=== PATIENT | female | born 1940 | race Caucasian/White ===

== ENCOUNTER → 2023-07-06 10:13 | Outpatient (REF) | payer MEDICARE, OTHER, SELFPAY | LOC: HWRAD 10:13 | PROVIDERS: ATTENDING PHYSICIAN Physician Assistant | DX: N28.89 Other specified disorders of kidney and ureter (principal) | CPT/HCPCS: 76770 ==

== ENCOUNTER → 2023-08-08 09:37 | Outpatient (REF) | payer MEDICARE, OTHER, SELFPAY ==
[2023-08-08 12:02] LABS: % Basophils 0.6 % (0-2); % Eosinophils 1.2 % (0-6); % Immature Granulocytes 0.4 % (0-0.5); % Lymphocytes 19.5 % (20.5-51.1); % Monocytes 12.2 % (1.7-9.3); % Neutrophils 66.1 % (42.2-75.2); Absolute Basophils 0.1 10^3/uL (0-0.2); Absolute Eosinophils 0.1 10^3/uL (0-0.7); Absolute Lymphocytes 1.6 10^3/uL (1.2-3.4); Absolute Neutrophils 5.3 10^3/uL (1.4-6.5); Hematocrit 30.6 % (37.0-47.0); Hemoglobin 9.6 g/dL (12.0-16.0); Mean Corp Hgb Conc. 31.4 g/dL (33.0-37.0); Mean Corpuscular Hgb 29.3 pg (27.0-31.0); Mean Corpuscular Volume 93.3 fL (81.0-99.0); Mean Platelet Volume 10.8 fL (7.4-10.4); Nucleated Red Blood Cells % 0 %; Platelet Count 351 10^3/uL (130-400); Red Blood Cell Count 3.28 10^6/uL (4.20-5.40); Red Cell Dist. Width 14.6 % (11.5-14.5)
[2023-08-08 13:07] LABS: ALT (SGPT) 10 U/L (0-35); AST (SGOT) 15 U/L (14-36); Albumin 3.6 g/dl (3.5-5.0); Alkaline Phosphatase 106 U/L (38-126); Blood Urea Nitrogen 10 mg/dl (7-17); Calcium 8.9 mg/dl (8.4-10.2); Carbon Dioxide 29 mmol/L (22-30); Chloride 103 mmol/L (98-107); Glucose 102 mg/dl (70-99); HDL Cholesterol 53 mg/dl; LDL Cholesterol, Calculated 63 mg/dl; Potassium 4.2 mmol/L (3.5-5.1); Sodium 136 mmol/L (135-145); Total Bilirubin 0.4 mg/dl (0.2-1.3); Total Cholesterol 133 mg/dl (50-199); Total Protein 6.4 g/dl (6.3-8.2); Triglyceride 86 mg/dl (10-149); Very Low Density Lipoprotein 17 mg/dl (0-30); eGFR > 60.00
== END ==
LOC: HWLAB 09:37
PROVIDERS: ATTENDING PHYSICIAN Physician Assistant
DX: N28.1 Cyst of kidney, acquired (principal); J44.9 Chronic obstructive pulmonary disease, unspecified; I48.0 Paroxysmal atrial fibrillation; E78.5 Hyperlipidemia, unspecified; R79.89 Other specified abnormal findings of blood chemistry
CPT/HCPCS: 36415; 80053; 80061; 85025

== ENCOUNTER → 2023-09-12 11:09 | Outpatient (REF) | payer MEDICARE, OTHER, SELFPAY ==
[2023-09-12 16:27] LABS: % Basophils 0.6 % (0-2); % Eosinophils 1.3 % (0-6); % Immature Granulocytes 0.1 % (0-0.5); % Lymphocytes 21.1 % (20.5-51.1); % Monocytes 13.3 % (1.7-9.3); % Neutrophils 63.6 % (42.2-75.2); Absolute Eosinophils 0.1 10^3/uL (0-0.7); Absolute Lymphocytes 1.5 10^3/uL (1.2-3.4); Absolute Monocytes 0.9 10^3/uL (0.1-0.6); Absolute Neutrophils 4.5 10^3/uL (1.4-6.5); Hematocrit 29.8 % (37.0-47.0); Hemoglobin 9.1 g/dL (12.0-16.0); Mean Corp Hgb Conc. 30.5 g/dL (33.0-37.0); Mean Corpuscular Hgb 28.3 pg (27.0-31.0); Mean Corpuscular Volume 92.5 fL (81.0-99.0); Nucleated Red Blood Cells % 0 %; Platelet Count 371 10^3/uL (130-400); Red Blood Cell Count 3.22 10^6/uL (4.20-5.40); Red Cell Dist. Width 15.6 % (11.5-14.5)
[2023-09-12 16:29] LABS: Iron 45 ug/dl (37-170)
[2023-09-12 16:39] LABS: Percent Saturation 14 % (20-50); Total Iron Binding Capacity 320 ug/dl (265-497)
[2023-09-12 17:06] LABS: Ferritin 21.6 ng/ml (11.1-264.0)
== END ==
LOC: HWLAB 11:09
PROVIDERS: ATTENDING PHYSICIAN Physician Assistant
DX: D64.9 Anemia, unspecified (principal)
CPT/HCPCS: 36415; 82728; 83540; 83550; 85025

== ENCOUNTER → 2023-09-27 09:57 | Outpatient (REF) | payer MEDICARE, OTHER, SELFPAY ==
[2023-09-27 13:04] LABS: % Basophils 0.7 % (0-2); % Eosinophils 1.2 % (0-6); % Immature Granulocytes 0.4 % (0-0.5); % Lymphocytes 18.1 % (20.5-51.1); % Monocytes 13.3 % (1.7-9.3); % Neutrophils 66.3 % (42.2-75.2); Absolute Basophils 0.1 10^3/uL (0-0.2); Absolute Eosinophils 0.1 10^3/uL (0-0.7); Absolute Lymphocytes 1.5 10^3/uL (1.2-3.4); Absolute Monocytes 1.1 10^3/uL (0.1-0.6); Absolute Neutrophils 5.4 10^3/uL (1.4-6.5); Hematocrit 29.4 % (37.0-47.0); Hemoglobin 9.1 g/dL (12.0-16.0); Mean Corpuscular Hgb 27.1 pg (27.0-31.0); Mean Corpuscular Volume 87.5 fL (81.0-99.0); Mean Platelet Volume 10.7 fL (7.4-10.4); Nucleated Red Blood Cells % 0 %; Platelet Count 444 10^3/uL (130-400); Red Blood Cell Count 3.36 10^6/uL (4.20-5.40); Red Cell Dist. Width 15.7 % (11.5-14.5); Reticulocyte Count 2.9 % (0.4-2.8); White Blood Cell Count 8.2 10^3/uL (4.8-10.8)
[2023-09-27 13:20] LABS: ALT (SGPT) < 10 U/L (0-35); AST (SGOT) 18 U/L (14-36); Albumin 3.8 g/dl (3.5-5.0); Alkaline Phosphatase 106 U/L (38-126); Blood Urea Nitrogen 12 mg/dl (7-17); Calcium 9.4 mg/dl (8.4-10.2); Carbon Dioxide 29 mmol/L (22-30); Chloride 103 mmol/L (98-107); Glucose 94 mg/dl (70-99); Iron 51 ug/dl (37-170); Potassium 4.6 mmol/L (3.5-5.1); Sodium 137 mmol/L (135-145); Total Bilirubin 0.5 mg/dl (0.2-1.3); Total Protein 6.5 g/dl (6.3-8.2); eGFR > 60.00
[2023-09-27 13:30] LABS: Percent Saturation 15 % (20-50); Total Iron Binding Capacity 332 ug/dl (265-497)
[2023-09-27 13:53] LABS: Ferritin 26.5 ng/ml (11.1-264.0)
[2023-09-27 14:07] LABS: Vitamin B12 247 pg/ml (239-931)
== END ==
LOC: HWLAB 09:57
PROVIDERS: ATTENDING PHYSICIAN Physician Assistant
DX: D64.9 Anemia, unspecified (principal); R03.1 Nonspecific low blood-pressure reading; R06.02 Shortness of breath; R53.83 Other fatigue; Z79.899 Other long term (current) drug therapy
CPT/HCPCS: 36415; 80053; 82607; 82728; 83540; 83550; 85025; 85045

== ENCOUNTER → 2023-10-02 10:06 | Outpatient (REF) | payer MEDICARE, OTHER, SELFPAY | LOC: WDC 10:06 | PROVIDERS: ATTENDING PHYSICIAN Physician Assistant | DX: N64.89 Other specified disorders of breast (principal) | CPT/HCPCS: 76642; 77062; 77066 ==

== ENCOUNTER → 2023-10-12 09:18 | Outpatient (REF) | payer MEDICARE, OTHER, SELFPAY | LOC: RCS 09:18 | PROVIDERS: ATTENDING PHYSICIAN Internal Medicine Cardiovascular Disease; FAMILY PHYSICIAN Physician Assistant | DX: I48.0 Paroxysmal atrial fibrillation (principal); R06.02 Shortness of breath | CPT/HCPCS: 93225; 93226 ==

== ENCOUNTER 2023-10-12 22:56 | Inpatient (IN) | payer MEDICARE, OTHER, SELFPAY ==
[2023-10-12 20:15] VITALS: BP 115/70
[2023-10-12 20:33] VITALS: BMI 27.3
[2023-10-12 20:48] LABS: % Basophils 0.4 % (0-2); % Immature Granulocytes 0.4 % (0-0.5); % Monocytes 11.9 % (1.7-9.3); % Neutrophils 69.3 % (42.2-75.2); Absolute Basophils 0.1 10^3/uL (0-0.2); Absolute Eosinophils 0.1 10^3/uL (0-0.7); Absolute Lymphocytes 1.9 10^3/uL (1.2-3.4); Absolute Monocytes 1.3 10^3/uL (0.1-0.6); Absolute Neutrophils 7.8 10^3/uL (1.4-6.5); Hematocrit 27.1 % (37.0-47.0); Hemoglobin 8.9 g/dL (12.0-16.0); Mean Corp Hgb Conc. 32.8 g/dL (33.0-37.0); Mean Corpuscular Hgb 27.6 pg (27.0-31.0); Mean Corpuscular Volume 84.2 fL (81.0-99.0); Nucleated Red Blood Cells % 0 %; Platelet Count 339 10^3/uL (130-400); Red Blood Cell Count 3.22 10^6/uL (4.20-5.40); Red Cell Dist. Width 15.9 % (11.5-14.5); White Blood Cell Count 11.3 10^3/uL (4.8-10.8)
--- NOTE | 2023-10-12 20:51 | ED.GENMED ---
History of Present Illness
General
Chief Complaint: Chest Pain
Source: patient and family
Exam Limitations: none
Time Seen by Provider: 10/12/23 20:50
Nursing documentation reviewed up to this point in time: agreed with
History of Present Illness
History of Present Illness:
83-year-old female presents emergency room complaining of left-sided chest fullness ongoing for several days. She has shortness of breath with a history of COPD. She had left breast fullness and saw a breast surgeon, and had an ultrasound. They
cannot find any problems with the breast. She does have an MRI pending.
Past History
Past History
ED Past Medical History: Arrthythmia (Atrial fibrillation), COPD, HTN, Hypercholesterolemia and Other (DJD the, psoriasis,: Polyps, diverticulosis, irritable bowel syndrome)
ED Past Surgical History: Orthopedic (repair right Tib/Fib fracture, L and R meniscus tear, Left heel spur removed) and Other (Lung biopsy)
Social History
Tobacco: Former smoker
Alcohol: Daily (2 glasses wine)
Personal:
Living: alone
Employment: Retired
Family History
Family History: Other (Noncontributory)
Review of Systems
Review of Systems
Allergies reviewed?: Yes
All Other Systems: Not applicable
Constitutional: Reports fatigue
EENT: Reports no symptoms
Respiratory: Reports trouble breathing
Cardiac: Reports chest pain
ABD/GI: Reports no symptoms
: Reports no symptoms
Musculoskeletal: Reports no symptoms
Skin: Reports no symptoms
Neurological: Reports no symptoms
Endocrine: Reports no symptoms
Hematologic/Lymphatic: Reports no symptoms
Psychiatric: Reports no symptoms
Phy Exam
Physical Exam
Physical Exam:
Physical Exam
General: Appears short of breath, afebrile
Neck: supple. no meningeal signs. normal posterior pharynx
Heart: s1/s2 tachycardia, irregular rhythm, no murmur. equal radial
pulses.
HEENT: Pupils equal round reactive to light, EOMI
Lungs: no acute respiratory distress. clear bilaterally
Abdomen: normal bowel sounds. not tender. no CVAT
Neuro: alert and oriented. no focal neurological deficits cranial nerves II through XII intact
Skin: no rash
Psychiatric: well kept. interactive and cooperative
Extremities: no edema. no calf tenderness. negative homans. good distal pulses, bilateral vertical incision scars knees
Scores
Heart Score for Chest Pain Patients
STEMI patient?: No
History: Moderately Suspicious
ECG: Nonspecific Repolarization
Age: >/= 65 years
Risk Factors: 1 or 2 Risk Factors
Troponin: >1 - <3 x Normal Limit
Heart Score for Chest Pain Patients: 6
Heart Score Risk: 20.3% MACE over next 6 weeks
Course
Orders/Labs/Results
Orders:
Orders
10/12/23 Breakfast
Cholesterol Lowering
At Your Request: Full Participation
Cholesterol Lowering: Sodium, 2 Gram
10/12/23 20:07
Electrocardiogram (*1) Urgent
Reason for Study: Chest Pain
EKG- Treatment ONCE
10/12/23 20:25
Complete Blood Count/With Diff Urgent
Comprehensive Metabolic Panel Urgent
NT-proBNP Urgent
Comment: ADD ON
Troponin I Urgent
10/12/23 21:09
Diltiazem 125 mg/125 ml Nss [Cardizem] 125 mg in 125 ml IV NOW
Initial dose in mg/hr, then titrate:: 5
Titrate to keep:: Heart rate 80-100 bpm
Titrate by mg/hr:: 5 mg/hr
Frequency of titrations (minutes):: 15
Maximum dose in mg/hr:: 15
10/12/23 21:12
Ipratropium/Albuterol Sulfate [Duoneb] 3 ml INH R NOW STA
10/12/23 21:13
Ipratropium/Albuterol Sulfate [Duoneb] 3 ml .ROUTE .STK-MED ONE
10/12/23 21:23
CR Chest Portable - 1 View Urgent
Comment:
Reason For Exam: chest pain
Reason Study Needs to be Portable: Patient Unstable
10/12/23 21:59
Add On- LAB Urgent
Tests Added?: bnp
10/12/23 22:38
Admit/Transfer Patient As Directed
Co-Sign Provider:
Level of Care: Inpatient admission
Assign to:: IVU
Physician / Group: nasim avilez
Diagnosis: atrial fib with RVR
Reason for Hospitalization: atrial fib with RVR
Expected length of stay greater than two midnights?: Yes
ELOS- Estimated Length of Stay in days: 3
I certify the patient meets the requirements for IP care: Yes
10/12/23 22:40
Code Status As Directed
Resuscitation Status: Full Code
10/12/23 23:00
Flush (0.9% Sodium Chloride) [Flush (Nss)] See Dose Instructions IV PER PROTOCOL
10/12/23 23:48
Acetaminophen [Tylenol] 650 mg PO Q4HPRN PRN
Bisacodyl [Dulcolax] 10 mg RECTAL [id number] PRN
Diltiazem 125 mg/125 ml Nss [Cardizem] 125 mg in 125 ml IV PER PROTOCOL
Currently infusing. Continue current dose and titrate:: Yes
Titrate to keep:: Heart rate 80-100 bpm
Titrate by mg/hr:: 5 mg/hr
Frequency of titrations (minutes):: 15
Maximum dose in mg/hr:: 15
Diphenhydramine [Benadryl] 25 mg PO HS PRN
Docusate W/Senna [Senokot-S] 1 tablet PO BIDPRN PRN
Levalbuterol [Xopenex 1.25 mg Inhalant Solution] 1.25 mg INH R Q6HPRN PRN
Polyethylene Glycol Powder [Miralax] 17 grams PO DAILYPRN PRN
10/12/23 23:48
CARDIOLOGY CONSULT Routine
Consulting Provider: Angelito Bradley
Was physician already notified: No
Reason for consult: atrial fib with RVR
Consult Notification Routine
Specialty to Notify: Cardiology
Activity As Directed
Activity Level: As Tolerated
Vital Signs As Directed
Frequency: Per unit guidelines
Xopenex Reason for Use As Directed
Reason for ordering Xopenex instead of Albuterol: tachycardia
10/13/23 01:58
Basic Metabolic Panel IN AM
Complete Blood Count/No Diff IN AM
10/13/23 06:00
Echo 2D MMode Doppler [Echo 2D MMode Color/Doppler] IN AM
Reason for Study: tachycardia
10/13/23 08:00
Apixaban [Eliquis] 5 mg PO BID
Atropine Sulfate [Atropine Sulfate 1% Drops] 1 drop LEFT EYE BID
Ferrous Sulfate [Feosol] 325 mg PO DAILY
Paroxetine [Paxil] 20 mg PO DAILY
Polyethylene Glycol Powder [Miralax] 8.5 grams PO DAILY
10/13/23 22:00
Metoprolol Xl [Toprol Xl] 12.5 mg PO HS
Rosuvastatin Calcium [Crestor] 10 mg PO HS
10/14/23 06:00
Basic Metabolic Panel IN AM
Complete Blood Count/No Diff IN AM
10/15/23 06:00
Basic Metabolic Panel IN AM
Complete Blood Count/No Diff IN AM
10/16/23 06:00
Basic Metabolic Panel IN AM
Complete Blood Count/No Diff IN AM
10/17/23 06:00
Basic Metabolic Panel IN AM
Abnormal Lab Results
10/12/23
20:25
WBC 11.3 H 10^3/uL
(4.8-10.8)
RBC 3.22 L 10^6/uL
(4.20-5.40)
Hgb 8.9 L g/dL
(12.0-16.0)
Hct 27.1 L %
(37.0-47.0)
MCHC 32.8 L g/dL
(33.0-37.0)
RDW 15.9 H %
(11.5-14.5)
Absolute Neuts (auto) 7.8 H 10^3/uL
(1.4-6.5)
Absolute Monos (auto) 1.3 H 10^3/uL
(0.1-0.6)
Lymphocytes % 17.0 L %
(20.5-51.1)
Monocytes % 11.9 H %
(1.7-9.3)
Creatinine 0.5 L mg/dL
(0.6-1.0)
Glucose 103 H mg/dl
(70-99)
Troponin I 0.213 H* ng/ml
10/12/23 20:25
10/12/23 20:25
Vital Signs
Initial and Last Documented VS:
Initial Vital Signs
Temp Pulse Resp BP Pulse Ox
98.3 F 112 22 115/70 99
10/12/23 20:15 10/12/23 20:15 10/12/23 20:15 10/12/23 20:15 10/12/23 20:15
Last Documented Vital Signs
Temp Pulse Resp BP Pulse Ox
99 F 98 20 115/94 97
10/13/23 02:05 10/13/23 01:00 10/13/23 02:05 10/12/23 23:50 10/13/23 02:05
MDM/Problems Addressed
Differential Diagnosis Includes:
CHF exacerbation, COPD exacerbation, ACS, rapid atrial fibrillation
MDM/Problems Addressed:
83-year-old female with chest pain, rapid A-fib. Troponin elevation of unclear etiology. Admit to hospitalist.
Chronic conditions affecting care: Arrhythmia and COPD
Acute Exacerbation and/or Progression of Chronic Illness: Arrhythmia and COPD
*Radiology
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
*Pulse Oximetry
Patient hypoxic: no
*EKG
Interpreted by ED Provider?: Yes
EKG Intrepretation Date: 10/12/23
EKG Intrepretation Time: 20:12
Interpretation: abnormal
Comparison EKG: changes noted
Heart Rate: 109
Rate: tachycardiac
Rhythm: a-fib
[place]: normal axis
Interval: normal interval
QRS Pattern: normal QRS
Ischemia: no ischemia
*Lodging Facilities Attendant Interpretation
Rate: tachycardiac
Interpretation: abnormal
Heart Rate: 112
Rhythm: a-fib
*Critical Care Note
Total Time (30-74mins, 75-104mins- exclusive of procedures): Not Applicable
Patient Management
Social determinants of health affecting care: Living situation
Discussion with other providers: Hospitalist
Escalation/DeEscalation of care consider admission/obs:
Admit indicated
ED Attending Note
-
Portions of this chart may have been created with voice recognition software.� Occasional wrong word or��sound alike� substitutions may have occurred due to the inherent limitations of voice recognition software.
Discharge Plan
Departure
Patient Disposition: Admit
Date of Disposition: 10/12/23
Time of Disposition: 22:00
Admit to: IMU
Presentation/result/management discussed w/ accepting MD/DO: Hospitalist
Patient with high blood pressure during this ER visit?: No
Condition: Fair
Discharge Problem:
Angina at rest, Atrial fibrillation with RVR, Acute exacerbation of chronic obstructive pulmonary disease
Interventions
Interventions:
*Risk Screen - Suicide Last Done: 10/12/23 23:58
*General Assessment Last Done: 10/12/23 20:07
*Neglect/Abuse Screening Last Done: 10/12/23 20:07
ED- Fall Risk Assessment Last Done: 10/12/23 21:07
*ED COVID-19 Vaccine History Last Done: 10/13/23 00:09
*Nursing Disposition Last Done: 10/13/23 00:09
ED- Cardiac Assessment Last Done: 10/12/23 21:07
Discharge Date and Time
Discharge Date/Time: 10/13/23 00:09
[2023-10-12 21:06] LABS: ALT (SGPT) 11 U/L (0-35); AST (SGOT) 22 U/L (14-36); Albumin 3.6 g/dl (3.5-5.0); Alkaline Phosphatase 116 U/L (38-126); Blood Urea Nitrogen 13 mg/dl (7-17); Calcium 8.8 mg/dl (8.4-10.2); Carbon Dioxide 24 mmol/L (22-30); Chloride 101 mmol/L (98-107); Estimated Creatinine Clearance 68 ml/min; Glucose 103 mg/dl (70-99); Potassium 3.8 mmol/L (3.5-5.1); Sodium 135 mmol/L (135-145); Total Bilirubin 0.4 mg/dl (0.2-1.3); Total Protein 6.3 g/dl (6.3-8.2); eGFR > 60.00
[2023-10-12 21:16] LABS: Troponin I 0.213 ng/ml
[2023-10-12] MEDS: CARDIZEM 125 IV (21:17)
[2023-10-12] MEDS: DUONEB 3 ML INH (21:42)
--- NOTE | 2023-10-12 22:03 | HPS.HSE ---
Family Physician
-
Family Physician: Tonya Hopkins
Chief Complaint
-
sob
left sided chest pain
History of Present Illness
83 year old with PMH for atrial fib, COPD, HTN, HLD, DJD, IBS presented to us with pain underneath her breast. radiating to her shoulder blade since this morning. she is been felling left sided fulness, breast swelling for two weeks now. she had
mammogram done with no acute findings. she is supposed to get MRI of her left breast in november. patient stated sob with activity. she felt palpitation this morning. denied runny nose, congestion, cough, fever chills. denied LUCIANO, dizzy or syncopal
episode. denied abdominal pain, v,d. denied dysuria or hematuria. denied swelling or weight gain.
IN ER patient noted in atrial fib with RVR. patient has elevated trop. initiated on Cardizem drip. admitting for further management.
Medical History
Past Medical History
Past Medical History: Reports Other
Additional Past Medical History:
dyslipidemia
Paroxysmal A-fib
pulmonary nodules
GERD
Anemia
COPD
Anxiety
Depression
Vertigo
Traumatic. Patient left eye
Past Surgical History: Reports Other
Additional Past Surgical History:
Right nephrectomy
Left TKA
Right TKA
Partial ostectomy
Right breast lump excision
Social History
Tobacco: Former Smoker
Alcohol: None
Drug: None
Family History
Family History: Not pertinent
Allergies / Home Medications
Allergies reflects when Allergies were last updated in [employer].
Home Medications with original date entered in [employer]
Allergy/Medication List:
Allergies
Allergy/AdvReac Type Severity Reaction Status Date / Time
amoxicillin Allergy Unknown Verified 03/13/21 18:38
morphine [Morphine] Allergy tremors, Verified 06/18/20 17:08
nausea ,
'Twitching',
tremors
Home Medications
paroxetine HCl 20 mg tablet 20 mg PO DAILY Depression 09/15/08
apixaban 5 mg tablet (Eliquis) 5 mg PO BID 10/13/17
metoprolol succinate 25 mg tablet,extended release 24 hr 12.5 mg PO HS Blood pressure 06/18/20
Unknown Eye Drops 1 drp RIGHT EYE BID 10/12/23
acetaminophen 500 mg tablet (Tylenol Extra Strength) 500 mg PO QIDPRN PRN headache 10/12/23
atropine 1 % eye drops 1 drp LEFT EYE BID 10/12/23
clobetasol 0.05 % shampoo 1 applic topical SUWE 10/12/23
diphenhydramine 25 mg-acetaminophen 500 mg tablet (Tylenol PM Extra Strength) 1 tab PO HS PRN sleep 10/12/23
ferrous sulfate 325 mg (65 mg iron) tablet 325 mg PO DAILY 10/12/23
fluticasone fur. 100 mcg-umeclid 62.5 mcg-vilant 25 mcg inhalat.powder (Trelegy Ellipta) 1 inh inhalation R DAILY 10/12/23
fluticasone propionate 50 mcg/actuation nasal spray,suspension 1 spray intranasal HS 10/12/23
polyethylene glycol 3350 17 gram oral powder packet (Miralax) 8.5 g PO DAILY 10/12/23
rosuvastatin 10 mg tablet 10 mg PO HS 10/12/23
Review of Systems
-
Constitutional: Reports No Symptoms
EENT: Reports No Symptoms
Respiratory: Reports Trouble Breathing
Cardiac: Reports No Symptoms and Chest Pain
Abdomen/GI: Reports No Symptoms
: Reports No Symptoms
Musculoskeletal: Reports No Symptoms
Skin: Reports No Symptoms
Neurological: Reports No Symptoms
Endocrine: Reports No Symptoms
Hematologic/Lymphatic: Reports No Symptoms
Psych: Reports No Symptoms
Physical Exam
Vital Signs
Vital Signs
Temp Pulse Resp BP Pulse Ox
98.3 F 112 22 115/70 99
10/12/23 20:15 10/12/23 20:15 10/12/23 20:15 10/12/23 20:15 10/12/23 20:15
Physical Exam
General: Well Developed, Well Nourished and No Apparent Distress
HEENT: NormoCephalic, Moist mucous membranes and Atraumatic
Respiratory: Clear
Cardiac: S1/S2 and Regular Rhythm; No Murmur or Rub
GI: Soft, Non Tender, Non Distended and Normal Bowel Sounds; No Organomegaly
Rectal: Deferred by Provider
Musculoskeletal: No Clubbing, No Cyanosis and No Edema
Skin: No Rash
Neuro: Nonfocal/grossly intact
Laboratory Results
-
10/12/23 20:25
10/12/23 20:25
Laboratory Results
Total Bilirubin 0.4 mg/dl (0.2-1.3) 10/12/23 20:25
AST 22 U/L (14-36) 10/12/23 20:25
ALT 11 U/L (0-35) 10/12/23 20:25
Alkaline Phosphatase 116 U/L (38-126) 10/12/23 20:25
Troponin I 0.213 ng/ml H* 10/12/23 20:25
Data Reviewed
-
Diagnostic Radiology: Report Reviewed by me
Lab Data: Labs Reviewed by me
Impression/Plan
-
#atrial fib with RVR
-Cardizem drip
-EKG with atrial fib with RVR
-Metoprolol continued
-Cardiology consulted
-obtain ECHO
-eliquis continued
#COPD exacerbation
-Xopenex
-Oxygenating well on room air
# Atypical chest pain
-trop 0.213
-trend trop
# Left breast swelling
-Left breast ultrasound with here is edema throughout the left breast with an abnormal lymph node. Possible etiologies include inflammatory breast cancer, systemic etiology such as congestive heart failure, and lymphedema. These possibilities should
be further assessed clinically. Consultation with a breast surgeon may be helpful.
-Scheduled for MRI of left breast as outpatient
#leukocytosis likely stress reaction
-wbc 11.3, afebrile
-Continue to monitor
#anemia of chronic disease
-hgb stable at 8.9
-no active bleeding
-ctm
#Essential hypertension -stable.
Hyperlipidemia -continue Crestor.
#Depression
-Paxil continued
#DVT prophylaxis
-eliquis
Full code
--- NOTE | 2023-10-12 22:19 | W.PN.UPDATE ---
Addendum entered and electronically signed by Spencer Massye MD 10/13/23 01:18:
Correction: Agree with IVU in place of IMU.
Original Note:
Update Note
Progress Note Update
This note serves as an addendum to the H&P by photogrammetric engineer JAMES Monique JANG
HPI
83F HX Perm AF on Eliquis, COPD seen at ER for evaluation of Lt sided chest fullness:
Lt sided chest pain
- mainly at Lt lower costal region
- felt like cracked rib
- no radiation
- Some SoB
- She denied cough, phlegm, fever and wheeze
- She denied Shruthi swelling
PMHX
Perm AF
COPD
HTN
Hypercholesterolemia
DJD the, psoriasis
Polyps
Diverticulosis,
Irritable bowel syndrome))
PSHX
Repair right Tib/Fib fracture
L and R meniscus tear, Left heel spur removed
Lung biopsy
SHx
Tobacco: Former Smoker
Alcohol: Daily ( 2 glasses of wine daily )
Living: Alone
Family History: Not pertinent
Reviewed VS: Afebrile RR 22 HR 112 BP 115/70
PE
Gen: Not toxic
HEENT: anicteric , blind Lt eye wit corneal opacity
Neck: supple
Lungs: symmetrically reduced AE , no wheeze on my exam
Cor: Irregular tachycardia
Abdomen: soft , benign
MANAGER THERAPY: AAO3 NFND
MS: no edema
Psych: anxious
Data
WCC 11.3
Hgb 8.9 - baseline low 9s
Unremarkable CMP
TPNI 0.213
01/23/20 ECHO
Normal left ventricular size, wall thickness and systolic function.
Diastolic function indeterminate.
Normal right ventricular size and function.
Mild mitral regurgitation.
Compared to the previous echo 08/26/15 there is no significant change.
10/02/23 Breast US
There is edema throughout the left breast with an abnormal lymph node.
Possible etiologies include inflammatory breast cancer, systemic etiology such as congestive heart failure, and lymphedema. These possibilities should be further assessed clinically. Consultation with a breast surgeon may be helpful.
10/12/23 CXR
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
Last hospitalist admission: 10/19- 10/20 2022
PDxs;
1. Left knee prepatellar hematoma.
2. Persistent atrial fibrillation.
3. Chronic obstructive pulmonary disease without exacerbation.
4. Essential hypertension.
5. Hyperlipidemia.
ASSESSMENT & PLAN
Fast VR of Persistent AF
Relative hypotension
- cont. Diltiazem gtt
- cont. metoprolol succinate 12,5mg HS
- cont. Eliquis
- CBC Card consult
Elevated TPNI
Lt sided lower CP suspect musculoskeletal origin - atypical for cardiac origin
DDX: NIMI due to fast AF
- Trend TPNI
- TLM monitor
- Await CBC Card eval in AM
OP Sono evidence of edema throughout the left breast with an abnormal lymph node.
Possible etiologies include inflammatory breast cancer, systemic etiology such as congestive heart failure, and lymphedema
- pending Breast MRI November 2023
- f/u with OP Breast surgeon
COPD HX - stable ,
-cont Spiriva and DuoNeb
Essential Hypertension
- cont MANAGER AREA Metoprol and Diltiazem gtt with hold index
Depression
- Continue Paroxetine
Hyperlipidemia -continue Crestor.
Normocytic anemia -unknown acuity. Hemoglobin 8.9 today
DVT Px: on Eliquis
Code:
IMU
--- NOTE | 2023-10-12 22:21 | EDRN ---
Hospitalist at bedside, patients HR up and down, currently cardizem at 5mg/hr, hospitalist states to leave it at 5 since patients blood pressure is on the lower side
[2023-10-12 22:54] LABS: NT-proBNP 2330 pg/ml
[2023-10-12 23:50] VITALS: BP 115/94
[2023-10-12] MEDS: TYLENOL 650 MG PO (23:56)
--- NOTE | 2023-10-12 23:56 | EDRN ---
On the way up with patient, patient starts complaining of lower left abdominal pain that radiates into her back and up to her shoulder blade, informed the nurses on arrival up to IVU and spoke with Dr. Diaz when i came back downstairs who
informed Dr. Massey of patients new complaints
[2023-10-13] VITALS (11 sets, daily range): BP systolic 85–121; BP diastolic 43–85; BMI 26.3
[2023-10-13] MEDS: ELIQUIS 5 MG PO ×3 (01:41→19:30)
[2023-10-13 02:07] LABS: Hemoglobin 7.9 g/dL (12.0-16.0); Mean Corp Hgb Conc. 32.9 g/dL (33.0-37.0); Mean Corpuscular Hgb 27.6 pg (27.0-31.0); Mean Corpuscular Volume 83.9 fL (81.0-99.0); Mean Platelet Volume 10.3 fL (7.4-10.4); Platelet Count 312 10^3/uL (130-400); Red Blood Cell Count 2.86 10^6/uL (4.20-5.40); Red Cell Dist. Width 15.8 % (11.5-14.5); White Blood Cell Count 10.3 10^3/uL (4.8-10.8)
[2023-10-13 02:30] LABS: Blood Urea Nitrogen 11 mg/dl (7-17); Calcium 8.4 mg/dl (8.4-10.2); Carbon Dioxide 24 mmol/L (22-30); Chloride 101 mmol/L (98-107); Estimated Creatinine Clearance 68 ml/min; Glucose 109 mg/dl (70-99); Potassium 3.5 mmol/L (3.5-5.1); Sodium 134 mmol/L (135-145); eGFR > 60.00
--- NOTE | 2023-10-13 02:31 | PTCARENOTE ---
Received pt from ED. Cardizem gtt infusing at 5ml/hr. Tele- afib. HR 100-120s. Pt w/ new pain described as pressure/tightness at her L lower abdomen wrapping around to her back. Pt rates pain 6/10. Pt also w/ increasing SOB. POX 89% RA. 2L O2 NC
applied. Marcellus LEVIN made aware of new onset of pain and SOB. Chest/abd/pelvis CTA ordered. Pt brought to CT via stretcher and nursing assist. This RN talked to Dr. Kidd via phone call about CT results. Marcellus ABRAHAM then made aware of results. Labs ordered
and drawn. Pt currently is in bed and reports pain subsided to a 3/10 after Tylenol admin. Call rhiannon w/in reach.
[2023-10-13 02:51] LABS: Troponin I 0.281 ng/ml
[2023-10-13] MEDS: MIRALAX 8.5 GRAMS PO (08:28)
[2023-10-13] MEDS: FEOSOL 325 MG PO (08:36)
[2023-10-13] MEDS: PAXIL 20 MG PO (08:36)
[2023-10-13] MEDS: ATROPINE SULFATE 1% DROPS 1 DROP LEFT EYE ×2 (08:36→19:31)
--- NOTE | 2023-10-13 09:58 | W.PN.HOSP.TC ---
Today's Communication/Plan
-
consult pulm
await cards
check iron studies/anemia work up
Assessment / Plan
Assessment / Plan
pt is an 83 year old female
persistent atrial fibrillation with RVR--cont cardizem drip--rate controlled--pt without SOB this AM--await cards input--cont. metoprolol succinate 12.5mg HS--cont. Eliquis
Elevated troponin -- likely due to nonmyocardial injury--Lt sided lower CP suspect musculoskeletal origin - atypical for cardiac origin --troponin downtrending--consider echo
edema throughout the left breast with an abnormal lymph node--being worked up as outpt--saw Dr. Jacobo--had mammogram and breast US--for breast MRI in November--Possible etiologies include inflammatory breast cancer, systemic etiology such as
congestive heart failure, and lymphedema
abnormal CT scan -- has KNOWN lung hamartoma--BUT unclear if there is a 'new nodule', there is also LAD--consult pulm
COPD without exacerbation--stable--cont Spiriva and DuoNeb
Essential Hypertension- cont ASTHMA EDUCATOR Metoprolol and Diltiazem gtt
Depression--Continue Paroxetine
Hyperlipidemia -continue Crestor.
Normocytic anemia-- possibly chronic disease?--Hemoglobin 8.9 on admission, 7.9 10/13/23--will check usual studies
DVT proph
code status -- Full Code
Anticipated Discharge: > 48 hours
Subjective/Interval History
-
Date of Service: October 13, 2023
pt feeling a bit better
Objective Data
-
Labs:
Laboratory Results
10/13/23
01:58
WBC 10.3
Hgb 7.9 L
Hct 24.0 L
Plt Count 312
Sodium 134 L
Potassium 3.5
Chloride 101
Carbon Dioxide 24
BUN 11
Creatinine 0.5 L
Glucose 109 H
Calcium 8.4
Vital Signs:
max temp for 24 hours
10/20/22
07:49
Temp 100.8 F H
Vital Signs
Temp Pulse Resp BP Pulse Ox
97.6 F 86 16 107/45 99
10/13/23 07:54 10/13/23 02:30 10/13/23 07:54 10/13/23 02:05 10/13/23 07:54
I&O
10/12/23 10/13/23 10/14/23
06:59 06:59 06:59
Intake Total 200 / 200
Balance 200 / 200
Review of Systems
-
All other systems: Reviewed and negative
Constitutional: Reports Weight Loss
Respiratory: Reports Trouble Breathing
Cardiac: Denies Chest Pain
Breast: Reports Other (fullness to left breast)
Musculoskeletal: Reports No Symptoms
Physical Exam
-
General: Well Developed, Well Nourished and No Apparent Distress
HEENT: Normocephalic, Atraumatic and Other (blind in left eye)
Respiratory: Clear to Auscultation; Negative Wheezes or Rhonchi
Cardiac: Irregular Rhythm; Negative Tachycardic or Bradycardic
Breast: Other (fullness to left breast--no left axillary LAD--no discharge noted--no masses palpated)
GI: Soft, Nontender, Nondistended and Normal Bowel Sounds
Musculoskeletal: No Clubbing, No Cyanosis and No Edema
Neuro: Awake and Alert
Psych: Calm
[2023-10-13 10:17] LABS: Troponin I 0.258 ng/ml
--- NOTE | 2023-10-13 11:04 | CON.PUL ---
Consultation
Consultation Request
Date/Time Consultation Requested: 10/12
Date/Time Consultation Performed: 10/12
Reason for Consultation: Abnormal imaging
Medical History
-
History of Present Illness:
History obtained from the patient, hospital records and reviewing outpatient records. Patient is well-known to myself, last seen in the office May 2023. She has a complex medical history including history of COPD, recently transition from
Spiriva/Arnuity to Tregy due to insurance issues. Her last PFT had improved. She was recommended to start pulmonary rehabilitation. She also has history of atrial fibrillation on Eliquis, history of known hamartoma and multiple nodules which
per report were identified on [place] images in 2004 with recent imaging in February 2023 at [place] which showed a 2 cm left upper lobe nodule. At the time of her visit in May, these images were not available for our review. She presents
with increased shortness of breath over the past few days of left chest discomfort. She also describes increased shortness of breath. Throughout this to me she denies fevers, chills, sweats, falls, syncope, PND, orthopnea, edema, lower extremity
swelling, weight changes, aspiration symptoms, urinary symptoms, blood in urine, blood in stool. Upon arrival to [facility], she was afebrile, pulse 112, breathing at 22, blood pressure 115/70, 99% saturation. She was noted to be
tachycardic on EKG. Patient was diagnosed with acute COPD exacerbation, atrial fibrillation with RVR and was admitted. We are asked to comment on CT imaging
She also has recent identified breast swelling and fullness, had mammogram and physician evaluation, workup pending
.
PMH: History of known left upper lobe mass, status post biopsy December 2013 consistent with hamartoma, [id number] history quit smoking 1997, atrial fibrillation on anticoagulation, hypertension, COPD, GERD.
Past Medical History
Past Medical History: None (See above)
Past Surgical History: None (See above)
Social History
Tobacco: Former Smoker ([id number]-[id number], quit 1998)
Alcohol: None
Drug: None
Living: With Family (Lives with daughter)
Employment: Not Employed
Family History
Family History: Other (3 children, 1 daughter with history of colon cancer. Mother from alcoholic liver cirrhosis at age 78, father from heart disease age 69. Brother with atrial fibrillation)
Allergies / Home Medications
Allergies
Allergy/AdvReac Type Severity Reaction Status Date / Time
amoxicillin Allergy Unknown Verified 03/13/21 18:38
morphine [Morphine] Allergy tremors, Verified 06/18/20 17:08
nausea ,
'Twitching',
tremors
Home Medications
�Medication �Instructions �Recorded �Confirmed �Last Taken �Type
paroxetine HCl 20 mg tablet 20 mg PO DAILY Depression 09/15/08 10/12/23 10/12/23 History
apixaban 5 mg tablet (Eliquis) 5 mg PO BID 10/13/17 10/12/23 10/12/23 Rx
metoprolol succinate 25 mg 12.5 mg PO HS Blood pressure 06/18/20 10/12/23 10/11/23 History
tablet,extended release 24 hr
Unknown Eye Drops 1 drp RIGHT EYE BID Eye Condition 10/12/23 10/12/23 Unknown History
acetaminophen 500 mg tablet 500 mg PO QIDPRN PRN headache 10/12/23 10/12/23 10/11/23 History
(Tylenol Extra Strength)
atropine 1 % eye drops 1 drp LEFT EYE BID Eye Condition 10/12/23 10/12/23 5 Days Ago History
~10/07/23
clobetasol 0.05 % shampoo 1 applic topical SUWE Skin Issues 10/12/23 10/12/23 10/10/23 History
diphenhydramine 25 1 tab PO HS PRN sleep 10/12/23 10/12/23 10/11/23 History
mg-acetaminophen 500 mg tablet
(Tylenol PM Extra Strength)
ferrous sulfate 325 mg (65 mg 325 mg PO DAILY Supplement 10/12/23 10/12/23 10/11/23 History
iron) tablet
fluticasone fur. 100 mcg-umeclid 1 inh inhalation R DAILY 10/12/23 10/12/23 10/11/23 History
62.5 mcg-vilant 25 mcg Lung/Breathing Issues
inhalat.powder (Trelegy Ellipta)
fluticasone propionate 50 1 spray intranasal HS Congestion 10/12/23 10/12/23 10/11/23 History
mcg/actuation nasal
spray,suspension
polyethylene glycol 3350 17 gram 8.5 g PO DAILY Constipation 10/12/23 10/12/23 10/11/23 History
oral powder packet (Miralax)
rosuvastatin 10 mg tablet 10 mg PO HS High Cholesterol 10/12/23 10/12/23 10/11/23 History
Review of Systems
-
All other systems: Negative unless noted
Vitals / Labs / Diagnostic Testing
Vital Signs
Temp Pulse Resp BP Pulse Ox
97.6 F 86 16 107/45 99
10/13/23 07:54 10/13/23 02:30 10/13/23 07:54 10/13/23 02:05 10/13/23 07:54
Lab Data
10/13/23 01:58
10/13/23 01:58
Diagnostic Testing:
Physical Exam
-
HEENT: Normocephalic, Anicteric and Other (Chronic left eye changes)
Cardiovascular: S1/S2, Irregular Rhythm, Murmur (n), Rub (n), Peripheral Edema (n), Calf Tenderness (n) and Other (Left costovertebral angle tenderness, no obvious rib tenderness but patient is exquisitely tender left back lower flank)
Respiratory: Wheeze (n), Rales (Minimal at base), Rhonchi (n) and Other (Bronchial, decreased throughout)
GI: Soft, Non Distended and Non Tender
Neurology: Awake, Alert, Oriented and No Motor Deficits
Skin: Good Color and Other (No skin rash, no clubbing)
General: Comfortable
Assessment
-
83-year-old female with history of moderate COPD, FEV1 70%, DLCO 60%, atrial fibrillation who presents with increased left chest discomfort, shortness of breath. She was admitted for COPD exacerbation, atrial fibrillation with RVR. We are asked to
comment on CT findings
Left chest discomfort, CVAT on exam
Increased over the past week
Left breast fullness/swelling/drainage
Negative mammogram, negative physician exam per patient
Questionable mass noted per CT imaging
Awaiting MRI
Nonspecific neck adenopathy per imaging, 3.5 cm thoracic inlet
2.6 cm left upper lobe nodule, 1.7 cm right middle lobe nodule
1.5 cm left hilar lymph node
Patchy areas of nodules, suspected mucous plugging
CHRIS nodule 2 cm and RML nodule 1.7 cm on [place] images February 2023 (per report)
Nonspecific mediastinal adenopathy (per report in Feb 2023)
5.5 cm hamartoma
Slowly increasing in size over the last 10 years
Biopsy-proven 2013
3.3 cm left renal cyst
Atrial fibrillation on anticoagulation
Conditions present prior to admission
Moderate COPD improved as outpatient on triple inhaler therapy
GERD
[id number] history of smoking quit 1998
Family history of colon cancer (daughter)
Plan/recommendations
Patient with complex medical history
Almost all of her CT chest films have been done at [place].
Recent imaging from February 2023 comments on 2 cm left upper lobe nodule
Patient was to bring images for our review
Now it is measured 2.6 cm although cannot confirm when compared directly
She has had multiple nodules in the past which at least per report has been stable from 2004 imaging at [place] but these images have not been available for direct comparison
Moving forward
We will need to directly compare images from [place] February 2023 with current images
Will need to obtain further imaging with regards to possible left breast mass
Would consider outpatient PET scan
May require evaluation of lymphadenopathy in the neck and/or breast biopsy
May also require biopsy of lung nodule but at this point, would recommend breast or neck lymphadenopathy biopsy. This can be done as an outpatient
More concerning is her left flank/costovertebral angle tenderness. There does not appear to be an obvious rib fracture on her imaging
Prior records suggest 2 cm left kidney lesion. Presently she has a 3.3 cm left kidney cyst. Not sure if there is a kidney lesion or not.
Will order UA with micro
Continue with inhaler regimen. I reminded her that her outpatient study showed improvement in FEV1 from 56% to 70% with triple inhaler therapy
Reviewed with patient at length
Reviewed with primary service
We will review films when brought by daughter in the a.m. and upload into the [employer] system
Will follow
--- NOTE | 2023-10-13 11:46 | CON.CAR ---
Addendum entered and electronically signed by Angelito Bradley MD 10/13/23 15:00:
I saw and examined the patient.
The BOIL OFF MACHINE OPERATOR CLOTH's note was reviewed and I agree with the note.
Comment: From the cardiac perspective it seems likely that the recent stopping of dilt led to faster afib that likely contributed to acute exacerbation of HFpEF (based on last echo). She likely has some COPD exacerbation as well. She is already
feeling much better. Her multiple important CT abnormalities are being pursued by breast surgery and pulmonary. Her significant anemia likely contributes as well. elevated troponin is almost certainly a nonischemic myocardial injury from fast
afib, heart failure and copd exacerbation.
Original Note:
Consultation
Consultation Request
Date/Time Consultation Requested: 10/12/23 7140
Date/Time Consultation Performed: 10/13/23 1000
Requesting Provider: Dr. Bradley
Performing Provider: Lolis FITZGERALD for Dr. Bradley
Reason for Consultation: AFIB with RVR
Medical History
-
Chief Complaint: SOB
History of Present Illness:
83 y/o female with permanent AFIB on Eliquis, COPD, and dyslipidemia who is here for evaluation of several days of SOB, worse with exertion. She also has had intermittent fullness on her left side. She has lost about 50 lbs in the past 3 years since
her . Of note, due to lower BP's, her PCP recently stopped diltiazem and holter was ordered to make sure she was rate-controlled. Holter was just removed today in hospital, so no results yet. On arrival, she had AFIB with RVR, which is
well controlled on diltiazem drip at 5 mg/hr. Her troponin is mildly elevated 0.281. BNP is elevated in 1999's (highest it has been). She is feeling improved at the time of my assessment. She is quite anemic. She denies any blood in urine or stool
and she says she is [facility]. Otherwise, she has recently noted left breast swelling for which she saw Dr. Jacobo and is having work-up. She is in no distress at the time of my assessment.
Past Medical History
Past Medical History: Arrhythmias, COPD and Hypercholesterolemia
Social History
Tobacco: Former Smoker
Family History
Family History: Reviewed & Not Pertinent
Allergies / Home Medications
Allergy/AdvReac Type Severity Reaction Status Date / Time
amoxicillin Allergy Unknown Verified 03/13/21 18:38
morphine [Morphine] Allergy tremors, Verified 06/18/20 17:08
nausea ,
'Twitching',
tremors
�Medication �Instructions �Recorded �Confirmed �Type
paroxetine HCl 20 mg tablet 20 mg PO DAILY Depression 09/15/08 10/12/23 History
apixaban 5 mg tablet (Eliquis) 5 mg PO BID 10/13/17 10/12/23 Rx
metoprolol succinate 25 mg 12.5 mg PO HS Blood pressure 06/18/20 10/12/23 History
tablet,extended release 24 hr
Unknown Eye Drops 1 drp RIGHT EYE BID Eye Condition 10/12/23 10/12/23 History
acetaminophen 500 mg tablet 500 mg PO QIDPRN PRN headache 10/12/23 10/12/23 History
(Tylenol Extra Strength)
atropine 1 % eye drops 1 drp LEFT EYE BID Eye Condition 10/12/23 10/12/23 History
clobetasol 0.05 % shampoo 1 applic topical SUWE Skin Issues 10/12/23 10/12/23 History
diphenhydramine 25 1 tab PO HS PRN sleep 10/12/23 10/12/23 History
mg-acetaminophen 500 mg tablet
(Tylenol PM Extra Strength)
ferrous sulfate 325 mg (65 mg 325 mg PO DAILY Supplement 10/12/23 10/12/23 History
iron) tablet
fluticasone fur. 100 mcg-umeclid 1 inh inhalation R DAILY 10/12/23 10/12/23 History
62.5 mcg-vilant 25 mcg Lung/Breathing Issues
inhalat.powder (Trelegy Ellipta)
fluticasone propionate 50 1 spray intranasal HS Congestion 10/12/23 10/12/23 History
mcg/actuation nasal
spray,suspension
polyethylene glycol 3350 17 gram 8.5 g PO DAILY Constipation 10/12/23 10/12/23 History
oral powder packet (Miralax)
rosuvastatin 10 mg tablet 10 mg PO HS High Cholesterol 10/12/23 10/12/23 History
Review of Systems
-
History Source: Patient
All other systems: Negative unless noted
Constitutional: Weight Loss (over 3 years 50 lbs) and Other (left breast fullness )
Respiratory: Trouble Breathing
Physical Exam
Vital Signs
Temp Pulse Resp BP Pulse Ox
97.6 F 77 16 118/85 99
10/13/23 07:54 10/13/23 11:30 10/13/23 07:54 10/13/23 07:54 10/13/23 07:54
Lab Results
10/13/23 01:58
10/13/23 01:58
Troponin I 0.258 ng/ml H* 10/13/23 09:31
Cmu-B-Mzsjbwmzaqh Pept 2330 pg/ml 10/12/23 20:25
Physical Exam
General: Well Developed, Well Nourished and No Apparent Distress
HEENT: Normocephalic and Anicteric
Respiratory: Clear and Non Labored Respirations
Cardiac: Irregular Rhythm
Skin: Warm and Dry
Neuro: AO x 3
Psych: Calm
Impression / Plan
-
SOB:
-likely multifactorial with anemia, CHF, hx COPD, AFIB
CHF, acute, type unknown but most recent EF normal as below:
-BNP highest its been
-update echo
-IV lasix, which requires intensive monitoring
Permanent AFIB:
-rates fast on arrival, now well controlled. Continue BB. Transition from IV to PO diltiazem.
-Continue Eliquis for OAC
Abnormal troponin:
-suspect acute non-ischemic myocardial injury in setting of CHF, anemia, fast AFIB
-check echo
Anemia:
-w/u per primary
-patient reports she was scheduled to see heme for this as OP
-no clinical bleeding per patient
Abnormal CT scan:
-multiple abnormalities seen on CT scan
-management per primary team
Data Reviewed
-
EKG: Tracing Personally Visualized and interpreted (AFIB 109 BPM)
Radiology: Report Reviewed by me (CXR: Left midlung mass in keeping with the patient's known pulmonary hamartoma.)
Medical Tests (Nuc Med, Echo etc): Report Reviewed by me (echo 01/23/20: Normal left ventricular size, wall thickness and systolic function. Diastolic function indeterminate. Normal right ventricular size and function. Mild mitral regurgitation.)
Labs: Labs Reviewed by me
[2023-10-13] MEDS: KLOR-CON 20 MEQ PO (14:27)
[2023-10-13] MEDS: CARDIZEM 60 MG PO ×2 (14:28→19:30)
--- NOTE | 2023-10-13 15:26 | PTCARENOTE ---
Pt AOx3, no complaints of pain or discomfort. Pt removed O2 this AM, sats 94% on RA. No complaints of SOB. Switched to PO cardizem. VSS, Afib on tele monitor. Call jurado within reach.
[2023-10-13] MEDS: LASIX 20 MG IV (16:45)
[2023-10-13] MEDS: TYLENOL 650 MG PO (16:51)
[2023-10-13 18:17] LABS: Urine Albumin Negative (Neg - Trace); Urine Bilirubin Negative (Negative); Urine Character Clear (Clear); Urine Color Yellow; Urine Glucose Negative (Negative); Urine Ketone Negative (Negative); Urine Leukocyte Negative (Negative); Urine Nitrite Negative (Negative); Urine Occult Blood Negative (Negative); Urine Urobilinogen Negative (Neg - 1+)
--- NOTE | 2023-10-13 20:17 | PTCARENOTE ---
Resumed care of pt sitting in chair AAOx3. HR in the 60's in Afib on the monitor. POX 95% on RA. Lungs dec on left. Pt reports some ROSAS. Denies SOB at rest. Reports feeling much improved compared to on arrival. Left breast swelling/ taunt. + bowel,
round abd. Pt ambulating to bathroom independently when needed. Palpable peripheral pulses present. Left AC capped at this time. Denies any complaints. Call jurado in reach. Will continue to monitor.
[2023-10-13] MEDS: BENADRYL 25 MG PO (22:02)
[2023-10-13] MEDS: CRESTOR 10 MG PO (22:02)
[2023-10-13] MEDS: TOPROL XL 12.5 MG PO (22:03)
[2023-10-13] MEDS: TYLENOL 500 MG PO (22:07)
[2023-10-14 03:02] VITALS: BP 95/49
[2023-10-14] MEDS: CARDIZEM 60 MG PO ×3 (03:03→13:55)
[2023-10-14 03:17] VITALS: BMI 26.1
[2023-10-14 03:32] LABS: Hematocrit 24.3 % (37.0-47.0); Hemoglobin 7.8 g/dL (12.0-16.0); Mean Corp Hgb Conc. 32.1 g/dL (33.0-37.0); Mean Corpuscular Hgb 27.2 pg (27.0-31.0); Mean Corpuscular Volume 84.7 fL (81.0-99.0); Mean Platelet Volume 9.8 fL (7.4-10.4); Platelet Count 321 10^3/uL (130-400); Red Blood Cell Count 2.87 10^6/uL (4.20-5.40); Red Cell Dist. Width 15.9 % (11.5-14.5); Reticulocyte Count 1.8 % (0.4-2.8); White Blood Cell Count 8.3 10^3/uL (4.8-10.8)
[2023-10-14 03:59] LABS: ALT (SGPT) < 10 U/L (0-35); AST (SGOT) 18 U/L (14-36); Albumin 3.3 g/dl (3.5-5.0); Alkaline Phosphatase 105 U/L (38-126); Blood Urea Nitrogen 10 mg/dl (7-17); Calcium 9.1 mg/dl (8.4-10.2); Carbon Dioxide 28 mmol/L (22-30); Chloride 101 mmol/L (98-107); Estimated Creatinine Clearance 60 ml/min; Glucose 101 mg/dl (70-99); Iron 32 ug/dl (37-170); Potassium 4.4 mmol/L (3.5-5.1); Sodium 138 mmol/L (135-145); Total Bilirubin 0.4 mg/dl (0.2-1.3); Total Protein 5.9 g/dl (6.3-8.2); eGFR > 60.00
[2023-10-14 04:08] LABS: Percent Saturation 12 % (20-50); Total Iron Binding Capacity 257 ug/dl (265-497)
[2023-10-14 04:25] LABS: TSH Reflex To Free T4 3.21 uIU/ml (0.47-4.68)
[2023-10-14 04:29] LABS: Ferritin 47.1 ng/ml (11.1-264.0)
[2023-10-14 05:01] LABS: Folate 5.5 ng/ml (2.76-20); Vitamin B12 279 pg/ml (239-931)
[2023-10-14 07:55] VITALS: BP 104/35
--- NOTE | 2023-10-14 09:12 | W.PN.HOSP.TC ---
Addendum entered and electronically signed by Jericho Pritchett MD 10/31/23 17:44:
Acute CHF unknown type per cardiology
Original Note:
Today's Communication/Plan
-
DC planning
Assessment / Plan
Assessment / Plan
pt is an 83 year old female
persistent atrial fibrillation with RVR--rate controlled now -improved SOB -off of cardizem drip and Cardizem changed to regular release- cont. metoprolol succinate 12.5mg HS--cont. Eliquis
Elevated troponin -- likely due to non ischemic myocardial injury--Lt sided lower CP suspect musculoskeletal origin - atypical for cardiac origin --troponin downtrending-
Edema throughout the left breast with an abnormal lymph node--being worked up as outpt--saw Dr. Jacobo--had mammogram and breast US--for breast MRI in November--Possible etiologies include inflammatory breast cancer, systemic etiology such as
congestive heart failure, and lymphedema.Follow up OP MRI pending
Abnormal CT scan -- has KNOWN lung hamartoma--BUT unclear if there is a 'new nodule', there is also LAD--pulmonary input noted. Await prior CT imaging for comparison. Might need to consider tissue sampling.
COPD without exacerbation--stable--cont Spiriva and DuoNeb
Essential Hypertension- cont PACKAGE CHECKER Metoprolol and Diltiazem
Depression--Continue Paroxetine
Hyperlipidemia -continue Crestor.
Normocytic anemia-- chronic disease--noted recently on labs and referral made to adjunct writing instructor which is pending. Iron studies suggest anemia of chronic disease. Check into stools. Continue to follow. Aim to keep hemoglobin more than 7.
DVT proph
code status -- Full Code
DC home if stable from cardiology standpoint and follow as an outpatient with regards to abnormal CT findings and anemia.
Anticipated Discharge: Today
Subjective/Interval History
-
Date of Service: October 14, 2023
Feeling improved. No chest pain or shortness of breath.
No nausea or vomiting.
Objective Data
-
Labs:
Laboratory Results
10/14/23
03:11
WBC 8.3
Hgb 7.8 L
Hct 24.3 L
Plt Count 321
Sodium 138
Potassium 4.4 D
Chloride 101
Carbon Dioxide 28
BUN 10
Creatinine 0.6
Glucose 101 H
Calcium 9.1
Total Bilirubin 0.4
AST 18
ALT < 10
Alkaline Phosphatase 105
Vital Signs:
Vital Signs
Temp Pulse Resp BP Pulse Ox
98.6 F 60 16 104/35 94
10/14/23 07:59 10/14/23 07:59 10/14/23 07:59 10/14/23 07:55 10/14/23 07:59
I&O
10/13/23 10/14/23 10/15/23
06:59 06:59 06:59
Intake Total 200 / 200 480 / 480
Output Total 750 / 750
Balance 200 / 200 -270 / -270
Review of Systems
-
Constitutional: Denies Fever
EENT: Denies Sore Throat
Respiratory: Denies Cough
Genitourinary: Denies Dysuria
Musculoskeletal: Reports Joint Pain (some discomfort in left flank area which according to pt has improved since hospitalization)
Neuro: Denies Dizzy
Physical Exam
-
General: No Apparent Distress
HEENT: Moist Mucous Membranes
Respiratory: Clear to Auscultation
Cardiac: S1/S2 and Irregular Rhythm; Negative Tachycardic
GI: Soft
Genito-urinary: No Costovertebral Tender
Musculoskeletal: No Edema
Neuro: AO x 3
Psych: Calm
Data Reviewed
-
Labs: Labs Reviewed by me
--- NOTE | 2023-10-14 09:13 | PTCARENOTE ---
Assumed care of pt from night RN. Pt received awake and alert, Ox3. VSs, CM shows AF 60's, POX 94% on RA. Left breast continues to be slightly swollen and tender. Pt ambulating in room frequently.
[2023-10-14] MEDS: ATROPINE SULFATE 1% DROPS 1 DROP LEFT EYE (10:03)
[2023-10-14] MEDS: FEOSOL 325 MG PO (10:04)
[2023-10-14] MEDS: PAXIL 20 MG PO (10:05)
[2023-10-14] MEDS: ELIQUIS 5 MG PO (10:05)
[2023-10-14] MEDS: MIRALAX 8.5 GRAMS PO (10:06)
[2023-10-14] MEDS: LASIX 20 MG IV (10:06)
[2023-10-14 11:46] VITALS: BP 103/36
--- NOTE | 2023-10-14 12:33 | W.PN.PUL3 ---
Today's Communication / Plan
-
Patient is subjectively improved
Less left rib and CVAT today. UA normal
Seems to have responded to diuresis
Follow-up with images as outpatient. Information left in chart
Reviewed with patient at length.
We will sign off. Please call with questions
Assessment
-
83-year-old female with history of moderate COPD, FEV1 70%, DLCO 60%, atrial fibrillation who presents with increased left chest discomfort, shortness of breath. She was admitted for COPD exacerbation, atrial fibrillation with RVR. We are asked to
comment on CT findings
Left chest discomfort, CVAT on exam
Increased over the past week
Left breast fullness/swelling/drainage
Negative mammogram, negative physician exam per patient
Questionable mass noted per CT imaging
Awaiting MRI
Nonspecific neck adenopathy per imaging, 3.5 cm thoracic inlet
2.6 cm left upper lobe nodule, 1.7 cm right middle lobe nodule
1.5 cm left hilar lymph node
Patchy areas of nodules, suspected mucous plugging
CHRIS nodule 2 cm and RML nodule 1.7 cm on [place] images February 2023 (per report)
Nonspecific mediastinal adenopathy (per report in Feb 2023)
5.5 cm hamartoma
Slowly increasing in size over the last 10 years
Biopsy-proven 2014
3.3 cm left renal cyst
Atrial fibrillation on anticoagulation
Conditions present prior to admission
Moderate COPD improved as outpatient on triple inhaler therapy
GERD
82-[id number] history of smoking quit 1998
Family history of colon cancer (daughter)
Plan/recommendations
Patient with complex medical history
Almost all of her CT chest films have been done at [place].
Recent imaging from February 2023 comments on 2 cm left upper lobe nodule
Patient was to bring images for our review
Now it is measured 2.6 cm although cannot confirm when compared directly
She has had multiple nodules in the past which at least per report has been stable from 2004 imaging at [place] but these images have not been available for direct comparison
Moving forward
We will need to directly compare images from [place] February 2023 with current images
Will need to obtain further imaging with regards to possible left breast mass
Would consider outpatient PET scan
May require evaluation of lymphadenopathy in the neck and/or breast biopsy
May also require biopsy of lung nodule but at this point, would recommend breast or neck lymphadenopathy biopsy. This can be done as an outpatient
Films have been provided and we will review as outpatient. Patient will be seen in the office in the next few weeks
More concerning is her left flank/costovertebral angle tenderness. There does not appear to be an obvious rib fracture on her imaging
This pain appears to be improved today
Prior records suggest 2 cm left kidney lesion. Presently she has a 3.3 cm left kidney cyst. Not sure if there is a kidney lesion or not.
UA is negative
Continue with inhaler regimen. I reminded her that her outpatient study showed improvement in FEV1 from 56% to 70% with triple inhaler therapy
Reviewed with patient at length possibility of slow-growing nodule. Reviewed possible need for bronchoscopy/biopsy. This will be discussed as an outpatient
Reviewed with primary service
We will review films together as outpatient. I have the CD. Patient does not may need return of the CT
Although I will plated onto [employer] system, cannot access
Follow-up information left in chart
Disposition efforts
We will sign off. Please call with questions
Subjective Data
-
Date of Service:
Date of Service: October 14, 2023
Subjective:
Patient is feeling subjectively improved. Denies chest pain, cough. Shortness of breath improved. Sitting in chair
Objective Data
Data Reviewed
Vital Signs / I&O / Oxygen:
Vital Signs
Temp Pulse Resp BP Pulse Ox
98.6 F 65 20 103/36 95
10/14/23 11:44 10/14/23 11:46 10/14/23 11:44 10/14/23 11:46 10/14/23 11:44
Intake and Output
10/13/23 10/14/23 10/15/23
06:59 06:59 06:59
Intake Total 200 / 200 480 / 480
Output Total 750 / 750
Balance 200 / 200 -270 / -270
SaO2 95
Nasal Cannula flow liters per 2
minute
Physical Exam
General: Comfortable
HEENT: Normocephalic, Anicteric and Other (Chronic left-eye changes)
Cardiovascular: S1-S2, Regular Rhythm, Murmur (n), Rub (n) and Peripheral Edema (Trace)
Respiratory: Wheeze (n), Crackles (Minimal left base), Rhonchi (n), Non-Labored Respirations and Stridor (n)
GI: Soft, Non Distended and Non Tender
Neurology: Awake and Alert
Skin: Cyanosis (n), Jaundice (n) and Rash (n)
Labs/Micro/Reports
Lab Data
10/14/23 03:11
10/14/23 03:11
--- NOTE | 2023-10-14 15:05 | W.PN.CD ---
Today's Communication / Plan
-
OK for home on her current regimen
move to lasix 20 mg po daily
BMP in 1 week
Impression / Plan
-
SOB:
- Much improved
-likely multifactorial with anemia, CHF, hx COPD, AFIB
CHF, acute, type unknown but most recent EF normal as below:
-BNP highest its been
-update echo
-move to pO Lasix for home
Permanent AFIB:
-rates fast on arrival, now well controlled. Continue BB and on Dilt
-Continue Eliquis for OAC
Abnormal troponin:
-suspect acute non-ischemic myocardial injury in setting of CHF, anemia, fast AFIB
-check echo, can defer to outpatient setting
Anemia:
-w/u per primary
-patient reports she was scheduled to see heme for this as OP
-no clinical bleeding per patient
Abnormal CT scan:
-multiple abnormalities seen on CT scan
-management per primary team
Subjective:
She feels well
Physical Exam
Vital Signs/Labs
Vital Signs
Temp Pulse Resp BP Pulse Ox
98.6 F 60 20 103/36 95
10/14/23 11:44 10/14/23 13:55 10/14/23 11:44 10/14/23 13:55 10/14/23 11:44
10/13/23 10/14/23 10/15/23
06:59 06:59 06:59
Actual Weight 67.2 kg 66.9 kg
10/14/23 03:11
10/14/23 03:11
Magnesium 2.0 mg/dl (1.6-2.3) 10/14/23 03:11
10/12/23
20:25
Acr-D-Hmpfcodgkwf Pept 2330
LAB Results
10/12/23 10/13/23 10/13/23
20:25 01:58 09:31
Troponin I 0.213 H* 0.281 H* D 0.258 H*
Physical Exam
EENT: Anicteric
Cardiovascular: Rhythm/rate is irregular
Respiratory: Respiratory effort normal and Lungs clear to auscul.
GI: Soft and Distention absent
Neuro/Psych: AO x 3
Data Reviewed
-
Date of Service: October 14, 2023
--- NOTE | 2023-10-14 15:13 | W.DS.TRANS ---
DC Summary - [employer]
-
Discharge Instructions:
Sleep Apnea Risk Intermediate
Discharge Diagnosis/Procedures Atrial fibrillation with RVR; abnormal CT chest
Diet Low Cholesterol
Activity As tolerated
Driving Restrictions As prior to admission
Bathing Restrictions None
Blood Work BMP in one week -arrange through your PCP
Specialty Instructions Weigh Daily
Instructions:
Stand-Alone Forms:
Changes to Home Medications: Yes
Discharge Medications:
DC Medications w/original date entered in [employer]
paroxetine HCl 20 mg tablet 20 mg PO DAILY Depression 09/15/08
apixaban 5 mg tablet (Eliquis) 5 mg PO BID 10/13/17
metoprolol succinate 25 mg tablet,extended release 24 hr 12.5 mg PO HS Blood pressure 06/18/20
Unknown Eye Drops 1 drp RIGHT EYE BID Eye Condition 10/12/23
acetaminophen 500 mg tablet (Tylenol Extra Strength) 500 mg PO QIDPRN PRN headache 10/12/23
atropine 1 % eye drops 1 drp LEFT EYE BID Eye Condition 10/12/23
clobetasol 0.05 % shampoo 1 applic topical SUWE Skin Issues 10/12/23
diphenhydramine 25 mg-acetaminophen 500 mg tablet (Tylenol PM Extra Strength) 1 tab PO HS PRN sleep 10/12/23
ferrous sulfate 325 mg (65 mg iron) tablet 325 mg PO DAILY Supplement 10/12/23
fluticasone fur. 100 mcg-umeclid 62.5 mcg-vilant 25 mcg inhalat.powder (Trelegy Ellipta) 1 inh inhalation R DAILY Lung/Breathing Issues 10/12/23
fluticasone propionate 50 mcg/actuation nasal spray,suspension 1 spray intranasal HS Congestion 10/12/23
polyethylene glycol 3350 17 gram oral powder packet (Miralax) 8.5 g PO DAILY Constipation 10/12/23
rosuvastatin 10 mg tablet 10 mg PO HS High Cholesterol 10/12/23
diltiazem HCl 240 mg capsule,extended release 24 hr 240 mg PO DAILY #30 caps 10/14/23
furosemide 20 mg tablet 20 mg PO DAILY #30 tabs 10/14/23
Home Medication Changes
New medication-Cardizem LOBO, Babs
Pending Results: No
[2023-10-14 15:32] VITALS: BP 120/53
--- NOTE | 2023-10-14 16:41 | PTCARENOTE ---
All D/C info reviewed with pt, all questions answered. Pt D/C'd home with family member.
[2023-10-15 01:22] LABS: Calcitonin <2.0 pg/mL (0.0-5.1)
--- NOTE | 2023-10-16 09:56 | W.DCSUMMARY ---
Discharge Summary
Discharge Data
Date of Admission: 10/12/23
Date of Discharge: 10/14/23
-
Pending Results: No
Hospital Course
Primary diagnosis:
Persistent atrial fibrillation with rapid ventricular rate
Congestive heart failure with preserved EF
Abnormal chest CT scan with lung hematomas on lung nodules
Secondary diagnosis:
Chronic obstructive pulmonary disease without exacerbation
Essential hypertension
Hyperlipidemia
Chronic normocytic anemia
Hospital course:
Patient presented with shortness of breath. She has a history of pulmonary fibrillation, COPD. She had several days of shortness of breath with exertion with intermittent left-sided fullness. She also has some weight loss. She was having issues
with low blood pressure so diltiazem was discontinued and a Holter was requested as an outpatient. On admission she was noted to be in rapid atrial fibrillation requiring Cardizem drip. She also had elevated BNP in 1999 which is highest for her.
There is a clinical concern about congestive heart failure. Last known EF was normal.
Once the A-fib was controlled she was continued beta-jasen and diltiazem was added to her regimen. She remains on Eliquis for anticoagulation. In view of possibility of heart failure p.o. Lasix was added at the time of discharge. There is mild
elevation of troponins which was felt nonischemic myocardial injury. Echo was deferred for outpatient setting. Once her heart rate was controlled and breathing was better she was discharged home. Advised to get a BMP as an outpatient in a week.
On admission the chest/abdomen/pelvis and CT angiogram was obtained for chest pain abdominal pain indication. It showed no thoracic or abdominal aortic aneurysm or dissection. No PE was noted. There was prominent mediastinal adenopathy,
adenopathy the base of the left neck and thoracic outlet. There is a left upper lobe pulmonary mass. There is also right middle lobe lung opacity. There was 5 cm rounded left upper lobe pulmonary mass with central soft tissue and fat attenuation
for likely hematoma. Pulmonary consultation was obtained to is going to review the prior chest CT she had but for now felt that she could be evaluated as an outpatient.
Other abnormalities noted on the chest CT-
There is also asymmetric enlargement of the left breast and soft tissue which was apparently noted recently and in the process of getting a further evaluation including an MRI. She apparently had breast surgeon evaluation and a mammogram.
There was subtle diffuse hepatic heterogeneous attenuation raising possibility of underlying fatty infiltration. Advised to consider MRI for further characterization.
Regions of sclerosis are also demonstrated involving T1, T2, and in the visualized lower cervical spine at C6 and C7. Consider follow-up bone scan.
There was also discovery of normocytic anemia in the recent lab when she is waiting to see a telecommunication systems designer. No evidence of iron deficiency based on the blood work.
She was advised to follow with PCP/ pulmonary /her primary voyage management system operator upon discharge .
Consultants on board:
Cardiology-Angelito Moore
Pulmonary-Yana Florentino
Discharge Plan
-
Patient Disposition: Home (Routine Discharge)
Discharge Diagnosis/Procedures: Atrial fibrillation with RVR; abnormal CT chest
Diet: Low Cholesterol
Activity: As tolerated
Driving Restrictions: As prior to admission
Bathing Restrictions: None
Blood Work: BMP in one week -arrange through your PCP
Specialty Instructions: Weigh Daily- Call MD for wt gain/loss 3 lbs overnight/5 lbs in 1 week
Referrals:
Yana Moyer MD [Active] - in two weeks
Tonya Hopkins PA-C [Family Provider] - in less than 1 week
Angelito Bradley MD [Active] - in one to two weeks
Prescriptions:
New
diltiazem HCl 240 mg Capsule,Extended Release 24hr
240 mg PO DAILY Qty: 30 0RF
furosemide 20 mg Tablet
20 mg PO DAILY Qty: 30 0RF
Continued
paroxetine HCl 20 MG tablet
20 mg PO DAILY
Eliquis 5 MG tablet
5 mg PO BID 0RF
metoprolol succinate 25 MG tablet extended release 24 hr
12.5 mg PO HS
diphenhydramine-acetaminophen [Tylenol PM Extra Strength] 25-500 mg Tablet
1 tab PO HS PRN (Reason: sleep)
Trelegy Ellipta 100-62.5-25 mcg Blister With Device
1 inh INHALATION R DAILY
polyethylene glycol 3350 [Miralax] 17 gram Powder In Packet
8.5 g PO DAILY
acetaminophen [Tylenol Extra Strength] 500 mg Tablet
500 mg PO QIDPRN PRN (Reason: headache)
ferrous sulfate 325 mg (65 mg iron) Tablet
325 mg PO DAILY
atropine 1 % Drops
1 drp LEFT EYE BID
fluticasone propionate 50 mcg/actuation [place],Suspension
1 spray INTRANASAL HS
rosuvastatin 10 mg Tablet
10 mg PO HS
clobetasol 0.05 % Shampoo
1 applic TOPICAL SUWE
Unknown Eye Drops drops
1 drp RIGHT EYE BID
Patient Comments:
10/12/23: patient states she has an eye drop that she uses for her right eye, but does not know the name of it.
Discharge Orders:
Discharge Patient (As Directed); Ordered 10/14/23
Ordered By: Jericho Pritchett
Care Plan Goals
Care Plan Goals:
Problem: Readiness for enhanced knowledge related to diagnosis and treatment plan
Goal: Understand your diagnosis and treatment plan needs, including medications if applicable.
Instructions: Know your diagnosis, underlying causes and treatment plan options, including medications if applicable. Consult with your health care team to learn about your diagnosis and treatment plan, including medications if applicable.
Discharge Date and Time
Discharge Date/Time: 10/14/23 16:50
Print Language: CZECH
--- NOTE | 2023-10-17 16:40 | PN.CDI ---
CDI
- -
CDI:
Physician Documentation Request
Admit Date: 10/12/23 22:56
Dear Doctor Shreyas
Please review the following and provide your response in the progress notes.
Clinical Indicators:
DS: Primary diagnosis: Persistant atrial fibrillation with RVR, CHF with preserved EF
Sec diagnosis: hypertension
Hosp Course: she also had elevated BNP in 1999 which is highest for her. there is a clinical concern about CHF. last known EF was normal
Cardio consult: .. afib likely contributed to acute exacerbation of HFpEF
Please clarify the relationship between these conditions:
Yes, _CHF__ is related to/associated with/due to __Hypertension_.
No, ___CHF is not related to/associated with/due to _Hypertension__ but it is due to _atrial fibrillation__. (Please specify)
Unable to determine
Use of terms such as suspected, likely, concern for, or probable (associated with a specific diagnosis that is being evaluated, monitored, or treated as if it exists) are acceptable and can be coded in the inpatient setting, when documented at the
time of discharge.
Thank you,
Martha Barrera
Hotel Registration Clerk Inpatient
Please use your independent medical judgment in providing your response.
== END 2023-10-14 16:50 | disposition home or self-care (01) | DRG 308 ==
LOC: IVU 22:56
PROVIDERS: Internal Medicine; Nurse Practitioner Family; Registered Nurse; ADMITTING PHYSICIAN Internal Medicine; ATTENDING PHYSICIAN Internal Medicine; CONSULT PHYSICIAN Internal Medicine Cardiovascular Disease; CONSULT PHYSICIAN Internal Medicine Critical Care Medicine; EMERGENCY PHYSICIAN Emergency Medicine; FAMILY PHYSICIAN Physician Assistant
DX: I48.19 Other persistent atrial fibrillation (principal); I50.33 Acute on chronic diastolic (congestive) heart failure; I5A Non-ischemic myocardial injury (non-traumatic); J44.9 Chronic obstructive pulmonary disease, unspecified; I10 Essential (primary) hypertension; E78.00 Pure hypercholesterolemia, unspecified; D64.9 Anemia, unspecified; K58.9 Irritable bowel syndrome, unspecified; K21.9 Gastro-esophageal reflux disease without esophagitis; F32.A Depression, unspecified; F41.9 Anxiety disorder, unspecified; D14.32 Benign neoplasm of left bronchus and lung; R07.89 Other chest pain; I89.0 Lymphedema, not elsewhere classified; Z87.891 Personal history of nicotine dependence; Z88.5 Allergy status to narcotic agent; Z79.01 Long term (current) use of anticoagulants; Z79.899 Other long term (current) drug therapy; Z79.51 Long term (current) use of inhaled steroids
CPT/HCPCS: 71045; 71275; 74174; 80048; 80053; 81003; 82308; 82607; 82728; 82746; 83540; 83550; 83735; 83880; 84443; 84484; 85025; 85027; 85045; 93005; 93225; 93226; 94640; 96374; 99285; Q9967

== ENCOUNTER 2023-10-16 15:12 | Inpatient (IN) | payer MEDICARE, OTHER, SELFPAY ==
[2023-10-15 17:18] VITALS: BP 100/45
[2023-10-15 17:46] VITALS: BP 108/54
[2023-10-15 18:04] LABS: % Basophils 0.6 % (0-2); % Eosinophils 1.1 % (0-6); % Immature Granulocytes 0.5 % (0-0.5); % Lymphocytes 18.4 % (20.5-51.1); % Monocytes 12.6 % (1.7-9.3); % Neutrophils 66.8 % (42.2-75.2); Absolute Basophils 0.1 10^3/uL (0-0.2); Absolute Eosinophils 0.1 10^3/uL (0-0.7); Absolute Lymphocytes 1.6 10^3/uL (1.2-3.4); Absolute Monocytes 1.1 10^3/uL (0.1-0.6); Absolute Neutrophils 5.7 10^3/uL (1.4-6.5); Hematocrit 26.2 % (37.0-47.0); Hemoglobin 8.3 g/dL (12.0-16.0); Mean Corp Hgb Conc. 31.7 g/dL (33.0-37.0); Mean Corpuscular Hgb 27.5 pg (27.0-31.0); Mean Corpuscular Volume 86.8 fL (81.0-99.0); Nucleated Red Blood Cells % 0 %; Platelet Count 371 10^3/uL (130-400); Red Blood Cell Count 3.02 10^6/uL (4.20-5.40); Red Cell Dist. Width 15.7 % (11.5-14.5); White Blood Cell Count 8.5 10^3/uL (4.8-10.8)
[2023-10-15 18:23] LABS: Magnesium 1.9 mg/dl (1.6-2.3)
[2023-10-15] MEDS: ASPIRIN 325 MG PO (18:43)
[2023-10-15] MEDS: ZOFRAN 4 MG IV (18:52)
[2023-10-15 19:00] VITALS: BP 96/83
[2023-10-15 19:09] LABS: Urine Albumin Negative (Neg - Trace); Urine Bilirubin Negative (Negative); Urine Character Clear (Clear); Urine Color Yellow; Urine Glucose Negative (Negative); Urine Ketone Negative (Negative); Urine Leukocyte Trace (Negative); Urine Nitrite Negative (Negative); Urine Occult Blood Negative (Negative); Urine Urobilinogen Negative (Neg - 1+)
[2023-10-15 19:23] LABS: Urine Bacteria Few (Negative); Urine Red Blood Cell 0-2 /HPF (0-2); Urine White Cell 0-2 /HPF (0-5)
--- NOTE | 2023-10-15 20:16 | ED.CVA ---
History of Present Illness
General
Chief Complaint: CVA/TIA Symptoms
Source: patient
Exam Limitations: none
Time Seen by Provider: 10/15/23 17:40
Nursing documentation reviewed up to this point in time: agreed with
Onset of Stroke Symptoms
Onset of symptoms known: Yes
Date of onset of symptoms: 10/15/23
History of Present Illness
History of Present Illness:
Patient with history of permanent atrial fibrillation on Eliquis, presents to ED secondary to sudden onset of slurred speech and word finding difficulty, while she was at home around 4 PM. Since then, symptoms have been intermittent, along with
headache. Denies dizziness. Denies blurred vision. Denies difficulty with swallowing. Denies loss of sensation or weakness. Denies difficulty with ambulation. Denies previous history of similar symptoms. Patient does report having taken
Eliquis this morning. Of note, patient was admitted to the hospital and discharged yesterday afternoon, after being treated for symptomatic rapid atrial fibrillation.
Past History
Past History
ED Past Medical History: Arrthythmia (Atrial fibrillation), COPD, HTN, Hypercholesterolemia and Other (DJD the, psoriasis,: Polyps, diverticulosis, irritable bowel syndrome)
ED Past Surgical History: Orthopedic (repair right Tib/Fib fracture, L and R meniscus tear, Left heel spur removed) and Other (Lung biopsy)
Social History
Tobacco: Former smoker
Alcohol: Daily (2 glasses wine)
Personal:
Living: alone
Employment: Retired
Family History
Family History: Other (Noncontributory)
Review of Systems
Review of Systems
Allergies reviewed?: Yes
All Other Systems: ROS reviewed and negative except as documented in HPI and ROS
Constitutional: Reports no symptoms
Respiratory: Reports no symptoms
Cardiac: Reports no symptoms
ABD/GI: Reports no symptoms
Musculoskeletal: Reports no symptoms
Skin: Reports no symptoms
Neurological: Reports headache and other (slurred speech)
Phy Exam
Physical Exam
Physical Exam:
Physical Exam
General: no apparent distress, not acutely ill. afebrile
Head: nc/at. eomi
Neck: supple. normal range of motion.
Heart: s1/s2 regular rate and rhythm, no murmur. equal radial pulses.
Lungs: no acute respiratory distress. clear bilaterally
Abdomen: normal bowel sounds. not tender.
Neuro: alert and oriented. no focal sensory/motor deficit. slowed speech noted without slurring. no facial droop.
Skin: no rash
Psychiatric: well kept. interactive and cooperative
Extremities: no edema. no calf tenderness.
Course
Orders/Labs/Results
Orders:
Orders
10/15/23 Dinner
Regular
At Your Request: Full Participation
10/15/23 17:34
CT Head W/o Iv Contrast Stat
Comment:
Reason For Exam: slurred speech/trouble finding words
10/15/23 17:43
Electrocardiogram (*1) Urgent
Reason for Study: TIA/Stroke
EKG- Treatment ONCE
10/15/23 17:57
Complete Blood Count/No Diff Urgent
Complete Blood Count/With Diff Urgent
Glycohemoglobin (HgbA1c) Urgent
Magnesium Urgent
10/15/23 18:05
CT Head & Neck Angio W/wo IV Urgent
Comment:
Reason For Exam: slurred speech w expressive aphasia and headache
10/15/23 18:07
Aspirin 325 mg .ROUTE .STK-MED ONE
10/15/23 18:10
Aspirin 325 mg .ROUTE .STK-MED ONE
10/15/23 18:38
Aspirin 325 mg PO NOW STA
10/15/23 18:51
Ondansetron Injectable [Zofran] 4 mg .ROUTE .STK-MED ONE
10/15/23 18:52
Ondansetron Injectable [Zofran] 4 mg IV NOW STA
10/15/23 18:56
Urinalysis Reflex To Culture Urgent
Date Specimen was Collected: 10/15/23
Time Specimen was Collected: 18:52
Urine Microscopic Reflex Cult Urgent
10/15/23 20:34
Admit/Transfer Patient As Directed
Co-Sign Provider:
Level of Care: Observation services
Assign to:: Telemetry
Physician / Group: raji
Diagnosis: tia
Reason for Telemetry: Arrhythmia
Date to Stop Telemetry: 10/18/23
Time to Stop Telemetry: 11:00
10/15/23 20:35
Code Status As Directed
Resuscitation Status: Do not resuscitate
Reached after discussion with pt or family/Healthcare POA: Yes
DNR Bracelet Application ONCE
10/15/23 20:39
Acetaminophen [Tylenol] 650 mg PO NOW STA
10/15/23 20:40
Acetaminophen [Tylenol] 650 mg .ROUTE .STK-MED ONE
10/15/23 21:00
Flush (0.9% Sodium Chloride) [Flush (Nss)] See Dose Instructions IV PER PROTOCOL
10/15/23 22:05
Acetaminophen [Tylenol] 500 mg PO QIDPRN PRN
Diphenhydramine [Benadryl] 25 mg PO HS PRN
Metoprolol Xl [Toprol Xl] 12.5 mg PO HS
Rosuvastatin Calcium [Crestor] 10 mg PO HS
fluticasone propionate 1 spray NASAL HS
10/15/23 22:05
NEUROLOGY CONSULT Routine
Consulting Provider: Joseph Aguilera
Was physician already notified: Yes
MR Brain Without Contrast Routine
Comment:
Reason For Exam: stroke/TIA
Recent pill cam endoscopy?: No
Activity As Directed
Activity Level: As Tolerated
NIH Stroke Scale As Directed
Directions: Per protocol
Comment: every shift and with any change in condition or mental status
Neurological Checks As Directed
Frequency: q4h
Additional Instructions:: q4h x 24h upon admission to the floor, then qshift & with any change in condition
and mental status
Patient Education As Directed
Type: Stroke education packet
Comment: provide to patient and family
Pneumatic Compression Sleeves As Directed
Type: Knee high
Vital Signs As Directed
Frequency: Per unit guidelines
DX Deep Vein Thrombosis Video Routine
10/16/23 06:00
Cardiovascular Evaluation IN AM
10/16/23 08:00
Apixaban [Eliquis] 5 mg PO BID
Aspirin Chewable [Low Strength Aspirin] 81 mg PO DAILY
Atropine Sulfate [Atropine Sulfate 1% Drops] 1 drop LEFT EYE BID
Budesonide/Formoterol 80/4.5 [Symbicort 80/4.5 Mcg Inhaler] 2 puff INH R DAILY
Diltiazem Extended Release [Cardizem Cd] 240 mg PO DAILY
Ferrous Sulfate [Feosol] 325 mg PO DAILY
Furosemide [Lasix] 20 mg PO DAILY
Paroxetine [Paxil] 20 mg PO DAILY
Polyethylene Glycol Powder [Miralax] 8.5 grams PO DAILY
10/17/23 20:42
clobetasol See Dose Instructions TOPICAL SUWE
10/18/23 11:00
DC Protocol for Telemetry ONCE
Abnormal Lab Results
10/15/23 10/15/23
17:57 18:56
RBC 3.02 L 10^6/uL
(4.20-5.40)
Hgb 8.3 L g/dL
(12.0-16.0)
Hct 26.2 L %
(37.0-47.0)
MCHC 31.7 L g/dL
(33.0-37.0)
RDW 15.7 H %
(11.5-14.5)
Absolute Monos (auto) 1.1 H 10^3/uL
(0.1-0.6)
Lymphocytes % 18.4 L %
(20.5-51.1)
Monocytes % 12.6 H %
(1.7-9.3)
Leukocyte Esterase Rfl Trace A
(Negative)
Urine Bacteria (Reflex) Few A
(Negative)
10/15/23 17:57
Vital Signs
Initial and Last Documented VS:
Initial Vital Signs
Temp Pulse Resp BP Pulse Ox
98.9 F 68 20 100/45 95
10/15/23 17:18 10/15/23 17:18 10/15/23 17:18 10/15/23 17:18 10/15/23 17:18
Last Documented Vital Signs
Temp Pulse Resp BP Pulse Ox
97.8 F 55 18 98/83 92
10/15/23 22:37 10/15/23 22:37 10/15/23 22:37 10/15/23 22:37 10/15/23 22:37
MDM/Problems Addressed
MDM/Problems Addressed:
CT head: No acute findings.
Discussed with on-call neurologist, Dr. Aguilera. Recommends admission for further workup and adding aspirin to her Eliquis.
*Critical Care Note
Total Time (30-74mins, 75-104mins- exclusive of procedures): Not Applicable
ED Attending Note
-
Portions of this chart may have been created with voice recognition software.� Occasional wrong word or��sound alike� substitutions may have occurred due to the inherent limitations of voice recognition software.
Discharge Plan
Departure
Patient Disposition: Admit
Date of Disposition: 10/15/23
Time of Disposition: 20:21
Admit to: Telemetry
Presentation/result/management discussed w/ accepting MD/DO: Hospitalist
Discharge Problem:
Brain TIA
Interventions
Interventions:
*Risk Screen - Suicide Last Done: 10/15/23 17:48
*General Assessment Last Done: 10/15/23 17:53
*Neglect/Abuse Screening Last Done: 10/15/23 17:48
ED- Fall Risk Assessment Last Done: 10/15/23 22:01
*ED COVID-19 Vaccine History Last Done: 10/15/23 17:18
*Nursing Disposition Last Done: 10/15/23 22:01
ED- Pulmonary Assessment Last Done: 10/15/23 18:12
ED- Neurological Assessment Last Done: 10/15/23 18:12
ED- Cardiac Assessment Last Done: 10/15/23 18:12
ED Swallowing Screen Last Done: 10/15/23 18:12
Discharge Date and Time
Discharge Date/Time: 10/15/23 22:02
[2023-10-15] MEDS: TYLENOL 650 MG PO (20:41)
--- NOTE | 2023-10-15 20:45 | HPS.HSE ---
Family Physician
-
Family Physician: Tonya Hopkins
Chief Complaint
-
slurred speech
History of Present Illness
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
finding difficulty at around 4 PM today. Since then she has been having intermittent symptoms and headache. Denies dizziness. Denies blurred vision. Denies swallowing difficulty. Denies sensory dysfunction or weakness. Denies ambulatory
dysfunction. She reports a history of chronic vertigo but this is not new. She denies any chest pain or shortness of breath.
Patient was discharged yesterday after being admitted for atrial fibrillation with RVR.
She denies smoking. She drinks alcohol occasionally.
Medical History
Past Medical History
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
Past Surgical History: Reports Other ( Orthopedic (repair right Tib/Fib fracture, L and R meniscus tear, Left heel spur removed) and Other (Lung biopsy))
Social History
Tobacco: Non-smoker
Alcohol: Occasional
Drug: None
Family History
Family History: Not pertinent
Allergies / Home Medications
Allergies reflects when Allergies were last updated in [employer].
Home Medications with original date entered in [employer]
Allergy/Medication List:
Allergies
Allergy/AdvReac Type Severity Reaction Status Date / Time
amoxicillin Allergy Unknown Verified 10/15/23 17:33
morphine [Morphine] Allergy tremors, Verified 10/15/23 17:33
nausea ,
'Twitching',
tremors
Home Medications
paroxetine HCl 20 mg tablet 20 mg PO DAILY Depression 09/15/08
apixaban 5 mg tablet (Eliquis) 5 mg PO BID 07/07/18
metoprolol succinate 25 mg tablet,extended release 24 hr 12.5 mg PO HS Blood pressure 06/18/20
Unknown Eye Drops 1 drp RIGHT EYE BID Eye Condition 10/12/23
acetaminophen 500 mg tablet (Tylenol Extra Strength) 500 mg PO QIDPRN PRN headache 10/12/23
atropine 1 % eye drops 1 drp LEFT EYE BID Eye Condition 10/12/23
clobetasol 0.05 % shampoo 1 applic topical SUWE Skin Issues 10/12/23
diphenhydramine 25 mg-acetaminophen 500 mg tablet (Tylenol PM Extra Strength) 1 tab PO HS PRN sleep 10/12/23
ferrous sulfate 325 mg (65 mg iron) tablet 325 mg PO DAILY Supplement 10/12/23
fluticasone fur. 100 mcg-umeclid 62.5 mcg-vilant 25 mcg inhalat.powder (Trelegy Ellipta) 1 inh inhalation R DAILY Lung/Breathing Issues 10/12/23
fluticasone propionate 50 mcg/actuation nasal spray,suspension 1 spray intranasal HS Congestion 10/12/23
polyethylene glycol 3350 17 gram oral powder packet (Miralax) 8.5 g PO DAILY Constipation 10/12/23
rosuvastatin 10 mg tablet 10 mg PO HS High Cholesterol 10/12/23
diltiazem HCl 240 mg capsule,extended release 24 hr 240 mg PO DAILY #30 caps 10/14/23
furosemide 20 mg tablet 20 mg PO DAILY #30 tabs 10/14/23
Review of Systems
-
History Source: Patient
A 12 point ROS was completed and negative except as noted: Yes
Constitutional: Reports No Symptoms
EENT: Reports No Symptoms
Respiratory: Reports No Symptoms
Cardiac: Reports No Symptoms
Abdomen/GI: Reports No Symptoms
: Reports No Symptoms
Musculoskeletal: Reports No Symptoms
Skin: Reports No Symptoms
Neurological: Reports No Symptoms
Endocrine: Reports No Symptoms
Hematologic/Lymphatic: Reports No Symptoms
Psych: Reports No Symptoms
Physical Exam
Vital Signs
Vital Signs
Temp Pulse Resp BP Pulse Ox
98.9 F 57 16 108/54 95
10/15/23 17:18 10/15/23 18:30 10/15/23 18:30 10/15/23 17:46 10/15/23 18:30
Physical Exam
General: Well Developed, Well Nourished and No Apparent Distress
HEENT: NormoCephalic, Moist mucous membranes and Atraumatic
Respiratory: Clear
Cardiac: S1/S2 and Regular Rhythm; No Murmur or Rub
GI: Soft, Non Tender, Non Distended and Normal Bowel Sounds; No Organomegaly
Rectal: Deferred by Provider
Musculoskeletal: No Clubbing, No Cyanosis and No Edema
Skin: No Rash
Neuro: Nonfocal/grossly intact
Laboratory Results
-
10/15/23 17:57
Data Reviewed
-
Lab Data: Labs Reviewed by me
Old Records: Reviewed
Impression/Plan
-
IMPRESSION:
PLAN:
# TIA versus CVA
-CT head shows no acute abnormality
-CTA shows less than 50% right proximal internal carotid artery stenosis
-Neurology recommending continue Eliquis, adding aspirin
-Check MRI brain
-Check A1c and lipid panel
-Neurochecks per protocol
Persistent atrial fibrillation
-Continue Eliquis
-Continue diltiazem
COPD
-Continue inhalers
Left breast edema secondary to ongoing breast cancer, CHF/lymphedema
-Continue Lasix
Essential hypertension
-Continue metoprolol
Anxiety/depression
-Continue paroxetine
Hyperlipidemia
-Continue statin
Chronic normocytic anemia
-Hemoglobin stable
-Continue ferrous sulfate
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
Full code
DVT prophylaxis�Eliquis
Regular diet
[2023-10-15 21:00] VITALS: BP 155/126
[2023-10-15 22:37] VITALS: BP 98/83; BMI 26.1
[2023-10-15 22:43] VITALS: BMI 26.1
[2023-10-15] MEDS: CRESTOR 10 MG PO (23:21)
[2023-10-15] MEDS: TOPROL XL PO (23:40)
[2023-10-15] MEDS: ELIQUIS 5 MG PO (23:58)
[2023-10-16 03:35] VITALS: BP 106/41
[2023-10-16 06:55] VITALS: BP 116/40
[2023-10-16 07:30] LABS: HDL Cholesterol 40 mg/dl; LDL Cholesterol, Calculated 46 mg/dl; Total Cholesterol 103 mg/dl (50-199); Triglyceride 87 mg/dl (10-149); Very Low Density Lipoprotein 17 mg/dl (0-30)
--- NOTE | 2023-10-16 07:42 | PTCARENOTE ---
Pt received from ER [email or web address] able to make her needs known,pleasant& coperative.Pt provided with stroke packet.Plan of care continued. Pt oriented to room & call jurado in reach.
[2023-10-16] MEDS: SPIRIVA RESPIMAT 2.5 MCG 2 PUFF INH (08:46)
[2023-10-16] MEDS: SYMBICORT 80/4.5 MCG INHALER 2 PUFF INH (08:47)
[2023-10-16] MEDS: CARDIZEM CD 240 MG PO (08:56)
[2023-10-16] MEDS: ATROPINE SULFATE 1% DROPS 1 DROP LEFT EYE ×2 (08:56→19:59)
[2023-10-16] MEDS: LASIX 20 MG PO (08:56)
[2023-10-16] MEDS: PAXIL 20 MG PO (08:57)
[2023-10-16] MEDS: FEOSOL 325 MG PO (08:57)
[2023-10-16] MEDS: LOW STRENGTH ASPIRIN 81 MG PO (08:57)
[2023-10-16] MEDS: ELIQUIS 5 MG PO ×2 (08:58→19:59)
[2023-10-16] MEDS: MIRALAX 8.5 GRAMS PO (08:58)
[2023-10-16 09:41] LABS: Glycohemoglobin (HgbA1c) 5.8 % (4.0-5.6)
[2023-10-16 11:04] VITALS: BP 101/37
--- NOTE | 2023-10-16 13:06 | CON.NEURO4 ---
Consultation - Neurology 4
-
CONSULTING PHYSICIAN: Joseph Aguilera MD (Neurology)
REFERRING PHYSICIAN: Hospitalist
DICTATED BY: Joseph Aguilera MD
DATE/TIME OF REQUEST: October 15, 2023
DATE/TIME OF CONSULTATION: October 16 2023 9:45 AM
Reason for Consultation: Speech impediment
History of Present Illness:
This is a 83 year old right handed female who has presented to the hospital with chief complaint of speech impediment. She gives a history of chronic atrial fibrillation on Eliquis, COPD, hypertension, hyperlipidemia, normocytic anemia, who is
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 At that time the patient's family members noted that her speech was slurred and she had word finding issues. This episode
resolved and then recurred a few minutes later . She then came into the emergency room and at the initial interview in the ER her speech was intact however family noted decreased speech output. There was no numbness or weakness of the face or
extremities . No episodes of altered consciousness or seizures no difficulty swallowing . No loss of balance incoordination or gait impairment since then she symptoms were intermittent and waxing and waning with persistent headaches. She was
placed on aspirin. Following admission she has been asymptomatic
She was short of breath with elevated BNP and low blood pressure. She was given Cardizem for rapid A-fib. Following control of A-fib she was placed on beta-blockers and Cardizem and Lasix
At the time my examination this morning patient was awake alert oriented to person place with normal speech pattern. There were no cranial nerve deficits. 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
There were no motor or sensory deficits
Past Medical History: As above
Surgical History: Orthopedic procedure
Family History: Noncontributory
Social History: Lives at home. Quit smoking. Rarely drinks
Allergies: Amoxicillin and morphine
Home Medications: Eliquis Lasix metoprolol Crestor Cardizem iron Lasix Paxil
Review of Symptoms:
Patient denies any fever, headache, chest pain, shortness of breath, GI or symptoms.
�Per the HPI.�All systems are reviewed negative except above.
�-
Vital Signs: Temp 37.0 C Pulse77 Resp26 BP 101/37 Pulse Ox 92
Physical Exam:
The patient is afebrile, heart sounds S1 and S2 are irregular and chest is clear to auscultation bilaterally.
- If not clear, describe.
NIH Stroke Scale (if applicable): 0
Neurologic Examination:
The patient is awake, alert and oriented x 3. She is able to follow commands and answer questions appropriately. There is no aphasia or dysarthria.
On cranial nerve assessment, pupil OD are 3 mm , round and reactive to light and accommodation. Visual garcia are full. Extraocular movements are intact OD. Left eye Phthisis
Facial sensations are intact and bilaterally symmetrical, there is no facial asymmetry. Hearing is intact bilaterally to normal conversation volume. Tongue palate and uvula are midline. Sternocleidomastoid strengths are full bilaterally. Motor
strengths are 5/5 bilateral upper and lower extremities on medical research [place] scale. There is no drift or involuntary movement noted. Deep tendon reflexes are 2+ bilateral upper and lower extremities and Babinski is absent bilaterally.
Sensations of pain, touch, temperature and vibration are intact and bilaterally symmetrical.
Coordination is intact by finger to nose bilaterally. Gait is within normal limits
Lab Results: Addendum
Neuro Imaging: MRI Brain Large number of scattered foci of restricted diffusion throughout the bilateral cerebral and cerebellar hemispheres compatible with acute infarcts. The largest infarct in the paramedian inferior left cerebellar hemisphere
measures 2.2 cm.
Mild to moderate age-related parenchymal atrophy. T2/FLAIR hyperintense signal in the white matter of the bilateral cerebral hemispheres, most compatible with the changes of mild chronic microangiopathic ischemia. No mass effect, midline shift, or
extra axial collection.
The vascular flow voids at the skull base are unremarkable, as far as visualized.
The paranasal sinuses and mastoids are clear. Chronic deformity of the left globe. Right ocular lens implant.
Impression:
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
distribution and left MCA involving Broca's area
Recommendations:
1. Aspirin 81 mg daily
2. Speech therapy
3. Cardiac management
4. Continue Eliquis for now. May switch to Xarelto/Pradaxa after review with Cardiology
Discussed patient care with:
Total Time Spent with Patient (in minutes): 30
Vital Signs and Labs
-
Vital Signs and Labs:
Vital Signs
Temp Pulse Resp BP Pulse Ox
37.0 C 77 26 101/37 92
10/16/23 11:04 10/16/23 11:04 10/16/23 11:04 10/16/23 11:04 10/16/23 11:04
Lab Results
10/15/23 17:57
LDL Cholesterol, Calc 46 mg/dl 10/16/23 06:44
[2023-10-16 15:10] VITALS: BP 126/57
--- NOTE | 2023-10-16 15:12 | W.PN.HOSP.TC ---
Addendum entered and electronically signed by Erin Coffey MD, Resident 10/17/23 10:07:
Patient is ongoing evaluation for breast cancer but her diagnosis has not been confirmed yet.
Addendum entered and electronically signed by Jericho Pritchett MD 10/16/23 16:20:
I saw and evaluated the patient. I reviewed the resident�s note and agree with findings and plan as documented in the resident�s note.
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 She is compliant with Eliquis for A-fib. Unclear etiology for stroke. With recent discovery of lymphadenopathy in the chest, abdomen, left breast edema,
pulmonary nodules evaluate for malignancy. Check antiphospholipid antibody panel. Consult oncology. Also consult cardiology regarding role of echo with bubble.
Appreciate neurology input. Continue with Eliquis. Aspirin added.
Discussed with the patient and daughter in detail about the findings, further evaluation and treatment.
Change level of care to inpatient.
Total time spent on today's encounter was 52 minutes which included time spent in counseling the patient/family regarding diagnosis and treatment plan as listed above, goals of care, and symptom management. Case was discussed with nursing staff,
specialists, and care coordinators/case management. All labs and imaging personally reviewed by me. Remainder the time spent in detailed review of previous records, lab data, imaging, and other medical provider documentation.
Original Note:
Today's Communication/Plan
-
Neurology, hematology, cardiology consult--continue aspirin and Eliquis--antiphospholipid antibody workup--consider breast MRI
Assessment / Plan
Assessment / Plan
Patient is a 83 year old right handed female who has presented to the hospital with chief complaint of sudden onset of slurred speech and weakness. She gives a history of chronic atrial fibrillation on Eliquis, COPD, hypertension, hyperlipidemia,
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 She was recently admitted to from October 11 to October 13 with SOB, low blood pressure, elevated BNP and persistent A-fib with rapid ventricular rate.
Patient was discharged after heart rate was controlled with Cardizem and breathing was better. However, at 4 PM yesterday, while talking on the phone with neighbor, she noticed that her speech was slurred and she had word finding issues. This
episode resolved and then recurred a few minutes later. She then came into the emergency room and at the initial interview in the ER her speech was intact however family noted decreased speech output. There was no numbness or weakness of the face
or extremities in the ER. No episodes of altered consciousness or seizures no difficulty swallowing . No loss of balance incoordination or gait impairment since then her symptoms were intermittent and waxing and waning with persistent headaches in
the frontal region. She was placed on aspirin. Following admission she has been asymptomatic.
Brain MRI--Multiple scattered acute infarcts in the bilateral cerebral and cerebellar hemispheres. Infarcts may be embolic given the distribution--antiphospholipid antibody panel ordered -- apprec neurology input--continue aspirin 81 mg daily,
speech therapy, cardiac management, continue Eliquis for now--consider switch to Xarelto or Pradaxa after review with cardiology--cardiology consult ordered
Brain CTA--No acute pathology identified. No evidence of M1 nor M2 occlusion. No carotid dissection--Less than 50% right proximal internal carotid artery stenosis. Mild atherosclerotic vascular disease--Mild left cervical, and severe
supraclavicular, infraclavicular, left superior mediastinum and prevascular lymphadenopathy. Mild left hilar lymphadenopathy--Pulmonary masses and nodules.PET imaging recommended if not previously performed--ordered hematology consult for evaluation
of lymphadenopathy and chronic anemia and weight loss
Breast skin changes--consider breast MRI
DVT prophylaxis--continue Eliquis
Anticipated Discharge: 24 - 48 hours
Subjective/Interval History
-
Date of Service: October 16, 2023
Patient is alert and oriented. She does not having any difficulty speaking or swallowing. Does not report weakness with walking. No urine incontinence. No vision problems. Has a waxing and waning headache.
Objective Data
-
Vital Signs:
Vital Signs
Temp Pulse Resp BP Pulse Ox
98.6 F 77 26 101/37 92
10/16/23 11:04 10/16/23 11:04 10/16/23 11:04 10/16/23 11:04 10/16/23 11:04
I&O
10/15/23 10/16/23 10/17/23
06:59 06:59 06:59
Intake Total 480 / 480
Balance 480 / 480
Review of Systems
-
History Source: Patient
All other systems: Reviewed and negative
Constitutional: Reports Weight Loss
EENT: Reports Other (left eye is blind from trauma (old))
Abdomen/GI: Reports Black Stools
Breast: Reports Skin Changes
Neuro: Reports Headache
Allergy / Immunology: Reports No Symptoms
Physical Exam
-
General: Well Developed, Well Nourished and Comfortable
HEENT: Normocephalic and Atraumatic
Respiratory: Clear to Auscultation
Cardiac: S1/S2 and Irregular Rhythm
Breast: Skin Changes
GI: Soft, Nontender, Nondistended and Normal Bowel Sounds
Genito-urinary: No Costovertebral Tender
Musculoskeletal: No Clubbing, No Cyanosis and No Edema
Skin: Warm
Neuro: Awake, Alert, Oriented and AO x 3
Hematologic / Lymphatic: No Lymphadenopathy
Psych: Anxious
Data Reviewed
-
Total Time Spent with Patient (in minutes): 40
--- NOTE | 2023-10-16 15:49 | CON.ONC ---
Impression
Impression
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
Normocytic normochromic anemia; borderline B12 and iron stores
Abnormal CT scan of the chest; known hamartoma, possible new lung mass, apparent pathologic adenopathy
Edema of the left breast, left axillary adenopathy, left supraclavicular adenopathy
Plan
Plan
Multiple possible conditions going on, not necessarily related.
Regarding her anemia, I would prefer to replete both iron levels and her B12 and see if that may fix the problem in the next few weeks. Will also check methylmalonic acid. Low reticulocyte count does not suggest hemolysis. Will check studies for
myeloma.
Regarding her CVAs occurring on Eliquis, I will defer to cardiology regarding her anticoagulation. Cardiolipin antibodies have been ordered, I have added a lupus anticoagulant as well. Might consider echocardiogram with bubble study.
Regarding the lung mass, it would be helpful to get a pulmonary opinion. They have been following her for the hamartoma, I am unaware as to whether this apparent new mass is indeed new. In addition, they can weigh in on her lymphadenopathy.
Regarding her abnormal left breast, we are awaiting an MRI that was not going to happen until sometime in November. Will check 15-3. It might be helpful consulting Dr. Jacobo to see if that could be expedited as an inpatient. The presence of
supraclavicular adenopathy with her abnormal breast exam unfortunately is suggestive of inflammatory breast cancer. That could also account for some of the mediastinal adenopathy.
Patient History
History of Present Illness
Consult from Dr. Pritchett regarding anemia
This 83-year-old woman was admitted with a CVA. She was just discharged from this hospital following an admission for atrial fibrillation with rapid ventricular response. She did have a longstanding history of fibrillation prior to that, and has
been on Eliquis for quite some time. The Eliquis did not seem to be held during that admission. She says she may have missed 1 dose in the last few weeks, but is quite certain that is all. The day of admission she became acutely confused and had
trouble finding her words. MRI shows multiple small CVAs suggestive of an embolic process. She has no history of CVAs. She is making a fairly rapid recovery from this.
She has seen Dr. Jacobo in the past couple of weeks for new onset left breast edema. Mammogram did not show a mass. She was due to have an MRI, but not until later next month. Evaluation here with CT scans show mediastinal adenopathy is much as
3.5 cm, the previously described hamartoma, as well as a possible new lung mass, and a splenic infarct. There were a couple of sclerotic lesions in the vertebra, metastatic disease could not be excluded.
She has also had an unexplained normocytic normochromic anemia over the past few months, and was actually due to see somebody in our office for this next week. Iron stores and B12 level, while normal, are on the very low end of normal.
Patient Medication
�Medication �Instructions �Recorded �Confirmed �Last Taken �Type
paroxetine HCl 20 mg tablet 20 mg PO DAILY Depression 09/15/08 10/15/23 10/15/23 History
apixaban 5 mg tablet (Eliquis) 5 mg PO BID 10/13/17 10/15/23 10/15/23 Rx
metoprolol succinate 25 mg 12.5 mg PO HS Blood pressure 06/18/20 10/15/23 10/14/23 History
tablet,extended release 24 hr
Unknown Eye Drops 1 drp RIGHT EYE BID Eye Condition 10/12/23 10/15/23 Unknown History
acetaminophen 500 mg tablet 500 mg PO QIDPRN PRN headache 10/12/23 10/15/23 10/11/23 History
(Tylenol Extra Strength)
atropine 1 % eye drops 1 drp LEFT EYE BID Eye Condition 10/12/23 10/15/23 10/15/23 History
clobetasol 0.05 % shampoo 1 applic topical SUWE Skin Issues 10/12/23 10/15/23 10/10/23 History
diphenhydramine 25 1 tab PO HS PRN sleep 10/12/23 10/15/23 10/11/23 History
mg-acetaminophen 500 mg tablet
(Tylenol PM Extra Strength)
ferrous sulfate 325 mg (65 mg 325 mg PO DAILY Supplement 10/12/23 10/15/23 10/15/23 History
iron) tablet
fluticasone fur. 100 mcg-umeclid 1 inh inhalation R DAILY 10/12/23 10/15/23 10/15/23 History
62.5 mcg-vilant 25 mcg Lung/Breathing Issues
inhalat.powder (Trelegy Ellipta)
fluticasone propionate 50 1 spray intranasal HS Congestion 10/12/23 10/15/23 10/14/23 History
mcg/actuation nasal
spray,suspension
polyethylene glycol 3350 17 gram 8.5 g PO DAILY Constipation 10/12/23 10/15/23 10/15/23 History
oral powder packet (Miralax)
rosuvastatin 10 mg tablet 10 mg PO HS High Cholesterol 10/12/23 10/15/23 10/14/23 History
diltiazem HCl 240 mg 240 mg PO DAILY #30 caps 10/14/23 10/15/23 10/15/23 Rx
capsule,extended release 24 hr
furosemide 20 mg tablet 20 mg PO DAILY #30 tabs 10/14/23 10/15/23 10/15/23 Rx
Active Medications
Generic Name Dose Route Start Last Admin
Trade Name Freq PRN Reason Stop Dose Admin
Acetaminophen 500 mg 10/15/23 22:05
Acetaminophen 500 Mg Tablet PO 11/12/23 22:04
QIDPRN PRN
headache
Acetaminophen 500 mg 10/15/23 22:20
Acetaminophen 500 Mg Tablet PO 11/12/23 22:19
HS PRN
sleep
Apixaban 5 mg 10/16/23 08:00 10/16/23 08:58
Apixaban (Eliquis) 5 Mg Tablet PO 11/13/23 07:59 5 mg
BID JOSE DANIEL Administration
Aspirin 81 mg 10/17/23 08:00
Aspirin 81 Mg (Enteric Coated) Tablet PO 11/14/23 07:59
DAILY JOSE DANIEL
Atropine Sulfate 1 drop 10/16/23 08:00 10/16/23 08:56
Atropine Sulfate 1% (Ophthalmic Drops) Droptainer LEFT EYE 11/13/23 07:59 1 drop
BID JOSE DANIEL Administration
Budesonide/Formoterol Fumarate 2 puff 10/16/23 08:00 10/16/23 08:47
Symbicort Inhaler 80/4.5 INH 11/13/23 07:59 2 puff
R DAILY JOSE DANIEL Administration
Diltiazem HCl 240 mg 10/16/23 08:00 10/16/23 08:56
Diltiazem 240 Mg Extended Release (24 H) Capsule PO 11/13/23 07:59 240 mg
DAILY JOSE DANIEL Administration
Diphenhydramine HCl 25 mg 10/15/23 22:05
Diphenhydramine 25 Mg Capsule PO
HS PRN
sleep
Ferrous Sulfate 325 mg 10/16/23 08:00 10/16/23 08:57
Ferrous Sulfate 325 Mg Tablet PO 11/13/23 07:59 325 mg
DAILY JOSE DANIEL Administration
Furosemide 20 mg 10/16/23 08:00 10/16/23 08:56
Furosemide 20 Mg Tablet PO 11/13/23 07:59 20 mg
DAILY JOSE DANIEL Administration
Metoprolol Succinate 12.5 mg 10/15/23 22:05 10/15/23 23:40
Metoprolol 12.5 Mg Extended Release Dose (1/2 Of 25 Mg Xl Tablet) PO 11/12/23 22:04 Not Given
HS JOSE DANIEL
Clobetasol 0.05 % 0 applic 10/17/23 20:42
Shampoo 1 Applic Top TOPICAL 11/14/23 20:41
Suwe SUWE JOSE DANIEL
Paroxetine HCl 20 mg 10/16/23 08:00 10/16/23 08:57
Paroxetine 20 Mg Tablet PO 11/13/23 07:59 20 mg
DAILY JOSE DANIEL Administration
Polyethylene Glycol 8.5 grams 10/16/23 08:00 10/16/23 08:58
Polyethylene Glycol Powder 17 Grams Packet PO 11/13/23 07:59 8.5 grams
DAILY JOSE DANIEL Administration
Rosuvastatin Calcium 10 mg 10/15/23 22:05 10/15/23 23:21
Rosuvastatin (Crestor) 10 Mg Tablet PO 11/12/23 22:04 10 mg
HS JOSE DANIEL Administration
Sodium Chloride 0 flush 10/15/23 21:00
Sodium Chloride 0.9% (Flush) Syringe IV 11/12/23 20:59
PER PROTOCOL JOSE DANIEL
Tiotropium [place] 2 puff 10/16/23 08:00 10/16/23 08:46
Tiotropium (Spiriva Respimat) 2.5 Mcg Inhaler INH 11/13/23 07:59 2 puff
R DAILY JOSE DANIEL Administration
Review of Systems
-
All Other Systems: Reviewed and Negative
Physical Exam
-
Physical examination shows the patient to be in no acute distress.
HEENT exam is unremarkable with the exception of a severely injured left eye.
There is a suggestion of left axillary adenopathy, and I am fairly certain there is a 1 cm left supraclavicular node.
Chest is clear.
The heart is regular with no murmur or gallop.
The abdomen is soft and nontender with no organomegaly or masses.
Extremities are unremarkable.
Neurologic is grossly intact.
Labs
Lab Results
WBC 8.5 10^3/uL (4.8-10.8) 10/15/23 17:57
RBC 3.02 10^6/uL (4.20-5.40) L 10/15/23 17:57
Hgb 8.3 g/dL (12.0-16.0) L 10/15/23 17:57
Hct 26.2 % (37.0-47.0) L 10/15/23 17:57
MCV 86.8 fL (81.0-99.0) 10/15/23 17:57
MCH 27.5 pg (27.0-31.0) 10/15/23 17:57
MCHC 31.7 g/dL (33.0-37.0) L 10/15/23 17:57
RDW 15.7 % (11.5-14.5) H 10/15/23 17:57
Plt Count 371 10^3/uL (130-400) 10/15/23 17:57
MPV 10.0 fL (7.4-10.4) 10/15/23 17:57
Abs Immat Gran (auto) 0.0 10^3/uL (0-0.05) 10/15/23 17:57
Absolute Neuts (auto) 5.7 10^3/uL (1.4-6.5) 10/15/23 17:57
Absolute Lymphs (auto) 1.6 10^3/uL (1.2-3.4) 10/15/23 17:57
Absolute Monos (auto) 1.1 10^3/uL (0.1-0.6) H 10/15/23 17:57
Absolute Eos (auto) 0.1 10^3/uL (0-0.7) 10/15/23 17:57
Absolute Basos (auto) 0.1 10^3/uL (0-0.2) 10/15/23 17:57
Immature Gran % 0.5 % (0-0.5) 10/15/23 17:57
Neutrophils % 66.8 % (42.2-75.2) 10/15/23 17:57
Lymphocytes % 18.4 % (20.5-51.1) L 10/15/23 17:57
Monocytes % 12.6 % (1.7-9.3) H 10/15/23 17:57
Eosinophils % 1.1 % (0-6) 10/15/23 17:57
Basophils % 0.6 % (0-2) 10/15/23 17:57
Vital Signs
Vital Signs
Temp Pulse Resp BP Pulse Ox
98.6 F 77 26 101/37 92
10/16/23 11:04 10/16/23 11:04 10/16/23 11:04 10/16/23 11:04 10/16/23 11:04
--- NOTE | 2023-10-16 16:32 | CON.CAR ---
Addendum entered and electronically signed by Kevin Rosenberg MD 10/17/23 13:29:
Note correction: Patient does not have metastatic breast cancer.
Addendum entered and electronically signed by Kevin Rosenberg MD 10/16/23 19:38:
Patient seen and examined in collaboration with PGY 2 resident; agree with below.
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
-Neurology consulted.
-Patient will be hypercoagulable due to cancer as well.
-This is possible Eliquis failure; recommend changing the patient over to Coumadin (goal INR 2.0-3.0) with heparin bridge, when cleared by Neurology.
-Echocardiogram tomorrow.
Original Note:
Consultation
Consultation Request
Date/Time Consultation Requested: 10/16/2023 3:54 PM
Date/Time Consultation Performed: 10/16/2023 5 PM
Requesting Provider: Erin Montilla
Performing Provider: Rita Latif for Kevin Yoo
Reason for Consultation: TIA.
Medical History
-
Chief Complaint: Slurring of speech, difficulty walking.
History of Present Illness:
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
hamartoma, nodule, s/p biopsy presents to the hospital for slurring of speech, word finding difficulty, difficulty walking x 2 episodes that lasted for 5 to 10 minutes each and episodes were 20 minutes apart. Patient reports that she was sitting in
her lobby with her dog and talking to her neighbor when she first noticed her symptoms. Her symptoms were noticed by her neighbor as well, who walked her upstairs to her room and then she had a second episode when she found it difficult to walk and
wobbly. These episodes were associated with headaches. Her headaches are limited to only forehead. So she called her cardiology office who recommended her to come to the emergency room. These episodes are not accompanied by perception and
temperature changes, tingling or numbness, loss of consciousness, incontinent bowel or bladder movements, blurring of vision, palpitations.
She reports to have upper abdominal pain on her left side that started on Sunday that was stabbing, and radiated into her back, to the left scapula was about 5/10 in intensity but the pain eventually subsided and she does not have any abdominal pain
today.
Reports to have some pressure-like sensation in the chest but does not have any palpitations, chest pain, orthopnea, PND, sweating, lightheadedness, dizziness, syncope.
Of note, patient has been in the hospital from 10/12/23 through 10/14/2023. Patient has been taking eliquis consistently as prescribed.
Past Medical History
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
nodule, s/p biopsy)
Past Surgical History: Other (Orthopedic (repair right Tib/Fib fracture, L and R meniscus tear, Left heel spur removed) and Other (Lung biopsy))
Social History
Tobacco: Former Smoker ([id number], quit in 1998.)
Alcohol: Occasional
Drug: None
Living: With Family (Daughter.)
Employment: Retired
Family History
Family History: Other (Mother alcoholic liver cirrhosis passed at age 78, father of coronary artery disease at age 68 Brother has A-fib, daughter with colon cancer.)
Allergies / Home Medications
Allergy/AdvReac Type Severity Reaction Status Date / Time
amoxicillin Allergy Unknown Verified 10/15/23 17:33
morphine [Morphine] Allergy tremors, Verified 10/15/23 17:33
nausea ,
'Twitching',
tremors
�Medication �Instructions �Recorded �Confirmed �Type
paroxetine HCl 20 mg tablet 20 mg PO DAILY Depression 09/15/08 10/15/23 History
apixaban 5 mg tablet (Eliquis) 5 mg PO BID 10/13/17 10/15/23 Rx
metoprolol succinate 25 mg 12.5 mg PO HS Blood pressure 06/18/20 10/15/23 History
tablet,extended release 24 hr
Unknown Eye Drops 1 drp RIGHT EYE BID Eye Condition 10/12/23 10/15/23 History
acetaminophen 500 mg tablet 500 mg PO QIDPRN PRN headache 10/12/23 10/15/23 History
(Tylenol Extra Strength)
atropine 1 % eye drops 1 drp LEFT EYE BID Eye Condition 10/12/23 10/15/23 History
clobetasol 0.05 % shampoo 1 applic topical SUWE Skin Issues 10/12/23 10/15/23 History
diphenhydramine 25 1 tab PO HS PRN sleep 10/12/23 10/15/23 History
mg-acetaminophen 500 mg tablet
(Tylenol PM Extra Strength)
ferrous sulfate 325 mg (65 mg 325 mg PO DAILY Supplement 10/12/23 10/15/23 History
iron) tablet
fluticasone fur. 100 mcg-umeclid 1 inh inhalation R DAILY 10/12/23 10/15/23 History
62.5 mcg-vilant 25 mcg Lung/Breathing Issues
inhalat.powder (Trelegy Ellipta)
fluticasone propionate 50 1 spray intranasal HS Congestion 10/12/23 10/15/23 History
mcg/actuation nasal
spray,suspension
polyethylene glycol 3350 17 gram 8.5 g PO DAILY Constipation 10/12/23 10/15/23 History
oral powder packet (Miralax)
rosuvastatin 10 mg tablet 10 mg PO HS High Cholesterol 10/12/23 10/15/23 History
diltiazem HCl 240 mg 240 mg PO DAILY #30 caps 10/14/23 10/15/23 Rx
capsule,extended release 24 hr
furosemide 20 mg tablet 20 mg PO DAILY #30 tabs 10/14/23 10/15/23 Rx
Review of Systems
-
History Source: Patient
Constitutional: No Symptoms
EENT: No Symptoms
Respiratory: No Symptoms
Cardiac: Other (Pressure-like sensation in the chest.)
Abdomen/GI: Abdominal Pain (LUQ pain radiating into the back, upper shoulder blade on the left-improved.)
: No Symptoms
Musculoskeletal: No Symptoms
Neurological: No Symptoms
Endocrine: No Symptoms
Hematologic/Lymphatic: No Symptoms
Physical Exam
Vital Signs
Temp Pulse Resp BP Pulse Ox
98.2 F 67 18 126/57 94
10/16/23 15:10 10/16/23 15:10 10/16/23 15:10 10/16/23 15:10 10/16/23 15:10
Lab Results
10/15/23 17:57
Physical Exam
General: No Apparent Distress and Comfortable (On room air.)
HEENT: Normocephalic, Anicteric and Other (Left eye-cornea changes.)
Respiratory: Clear (To auscultation on bilateral lobes.)
Cardiac: S1/S2 and Irregular Rhythm; Negative Murmur or Rub
GI: Soft, Non Tender, Non Distended and Normal Bowel Sounds
Musculoskeletal: Edema (Trace pedal edema noted.)
Neuro: AO x 3 and Nonfocal/Grossly Intact
Hematologic/Lymphatic: Lymphadenopathy (Left supraclavicular and axillary lymphadenopathy.)
Psych: Calm
Impression / Plan
-
Background -
83-year-old female known to cardiology service in the past for permanent A-fib on long-term anticoagulation, chronic heart failure, anemia of chronic disease and abnormal troponins during her last admission. Her past medical history chronic A-fib
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
in 10/15/2023 for evaluation of TIA/CVA.
Impression-
TIA/CVA-embolic.
-As evidenced by symptoms, brain MRI.
-Underlying etiology undetermined. Could be from hypercoagulable state, failure of Eliquis, prothrombotic state. Need thorough workup for hypercoagulable state.
-Oncology, neurology on board.
Permanent AFIB:
- As evidenced by EKG and telemetry.
-Patient has been consistent with taking her Eliquis doses. Hence consider this as Eliquis failure. Recommend switching to warfarin when appropriate from neurological standpoint given her recent setting of stroke.
CHF-unknown type.
-BNP highest -2000 from previous admit
-Clinically no evidence of symptoms hence no exacerbation.
-Echocardiogram with bubble study.
-Patient on metoprolol succinate 12.5 for rate control, diltiazem to 40 Mg for rhythm control.
Anemia:
Abnormal CT scan:
Subjective-
Patient reports some chest pressure-like sensation, but feeling better.
Data reviewed-
Telemetry 10/16/[id number] HR-68, A-fib, cardiac pauses less than 3 seconds.
EKG 10/16/2023-A-fib, low amplitude QRS complexes.
Head CT 10/15/2023-negative
CT angiogram of neck 10/15/2023--less than 50% of right proximal internal carotid artery stenosis.
MRI of brain 10/16/2023--multiple scattered acute infarcts.
CT abdomen 10/13/2023--multiple abnormalities, splenic infarct.
Echo 01/23/20: Normal left ventricular size, wall thickness and systolic function. Diastolic function indeterminate. Normal right ventricular size and function. Mild mitral regurgitation.
Data Reviewed
-
Radiology: Image Personally Visualized and interpreted
CT Scan: Image Personally Visualized and interpreted
Ultrasound: Image Personally Visualized and interpreted
MRI: Image Personally Visualized and interpreted
Medical Tests (Nuc Med, Echo etc): Image Personally Visualized and interpreted
Labs: Labs Reviewed by me
--- NOTE | 2023-10-16 16:42 | CM ---
Alert awake oriented patient who lives with her daughter Courtney who lives in a 1 story home with 0 step to enter.She is independent in driving and in all activities of daily living.She was offered VN she requested [facility] letter given Pt declined to
sign.
[facility] / [facility] history
Pharmacy [facility]
PCP DR Hopkins
PLAN Home [facility] if accepted
--- NOTE | 2023-10-16 16:45 | CON.GS ---
Consultation
-
Date/Time Consultation Requested: 10/16/23 1615H
Date/Time Consultation Performed: 10/16/23 1646H
Requesting Provider: Dr. Pritchett
Performing Provider: Perla Jacobo
Reason for Consultation: Breast swelling
Medical History
Past Medical History
Past Medical History: Arrhythmias (Afib), CHF, CVA, HTN and Hypercholesterolemia
Past Surgical History: Other (benign breast bx, benign lung tumor hamartoma, knee replacements)
Social History
Tobacco: Non-Smoker
Alcohol: None
Drug: None
Family History
Family History: Reviewed & Not Pertinent
Allergies / Home Medications
Allergy/AdvReac Type Severity Reaction Status Date / Time
amoxicillin Allergy Unknown Verified 10/15/23 17:33
morphine [Morphine] Allergy tremors, Verified 10/15/23 17:33
nausea ,
'Twitching',
tremors
�Medication �Instructions �Recorded �Confirmed �Type
paroxetine HCl 20 mg tablet 20 mg PO DAILY Depression 09/15/08 10/15/23 History
apixaban 5 mg tablet (Eliquis) 5 mg PO BID 10/13/17 10/15/23 Rx
metoprolol succinate 25 mg 12.5 mg PO HS Blood pressure 06/18/20 10/15/23 History
tablet,extended release 24 hr
Unknown Eye Drops 1 drp RIGHT EYE BID Eye Condition 10/12/23 10/15/23 History
acetaminophen 500 mg tablet 500 mg PO QIDPRN PRN headache 10/12/23 10/15/23 History
(Tylenol Extra Strength)
atropine 1 % eye drops 1 drp LEFT EYE BID Eye Condition 10/12/23 10/15/23 History
clobetasol 0.05 % shampoo 1 applic topical SUWE Skin Issues 10/12/23 10/15/23 History
diphenhydramine 25 1 tab PO HS PRN sleep 10/12/23 10/15/23 History
mg-acetaminophen 500 mg tablet
(Tylenol PM Extra Strength)
ferrous sulfate 325 mg (65 mg 325 mg PO DAILY Supplement 10/12/23 10/15/23 History
iron) tablet
fluticasone fur. 100 mcg-umeclid 1 inh inhalation R DAILY 10/12/23 10/15/23 History
62.5 mcg-vilant 25 mcg Lung/Breathing Issues
inhalat.powder (Trelegy Ellipta)
fluticasone propionate 50 1 spray intranasal HS Congestion 10/12/23 10/15/23 History
mcg/actuation nasal
spray,suspension
polyethylene glycol 3350 17 gram 8.5 g PO DAILY Constipation 10/12/23 10/15/23 History
oral powder packet (Miralax)
rosuvastatin 10 mg tablet 10 mg PO HS High Cholesterol 10/12/23 10/15/23 History
diltiazem HCl 240 mg 240 mg PO DAILY #30 caps 10/14/23 10/15/23 Rx
capsule,extended release 24 hr
furosemide 20 mg tablet 20 mg PO DAILY #30 tabs 10/14/23 10/15/23 Rx
Review of Systems
-
History Source: Patient
All other systems: Negative unless noted
Abdomen/GI: Abdominal Pain (RUQ pain, resolved)
A 10 point review of systems was completed, and was negative except as per HPI.
Physical Exam
Vital Signs
Temp Pulse Resp BP Pulse Ox
98.2 F 67 18 126/57 94
10/16/23 15:10 10/16/23 15:10 10/16/23 15:10 10/16/23 15:10 10/16/23 15:10
10/15/23 10/16/23 10/17/23
06:59 06:59 06:59
Actual Weight 66.723 kg
Body Mass Index (BMI) 26.1
Lab Results
10/15/23 17:57
WBC 8.5 10^3/uL (4.8-10.8) 10/15/23 17:57
Hgb 8.3 g/dL (12.0-16.0) L 10/15/23 17:57
Hct 26.2 % (37.0-47.0) L 10/15/23 17:57
Plt Count 371 10^3/uL (130-400) 10/15/23 17:57
Abs Immat Gran (auto) 0.0 10^3/uL (0-0.05) 10/15/23 17:57
Neutrophils % 66.8 % (42.2-75.2) 10/15/23 17:57
Physical Exam
General: Well Developed and Well Nourished
HEENT: Other (left eye injury)
Respiratory: Clear
Cardiac: Irregular Rhythm
Breast: Other (left breast with dependent edema, improved since I saw her 10/03/23 This does not look like inflammatory breast ca presentation)
GI: Soft and Non Tender
Musculoskeletal: No Clubbing and No Cyanosis
Skin: Warm and Dry
Neuro: Awake and Alert
Hematologic/Lymphatic: Lymphadenopathy (I cannot palpate left axillary adenopathy)
Psych: Calm
Data Reviewed
-
Radiology: Image Personally Visualized and interpreted, Discussed with Physician and Discussed with Patient
CT Scan: Image Personally Visualized and interpreted, Report Reviewed by me, Discussed with Physician and Discussed with Patient
Labs: Labs Reviewed by me
Total Time Spent with Patient (in minutes): 20
Assessment / Plan
-
83 Y/O female with recent embolic CVA and multiple site embolic issue. I saw her 2 weeks ago and was awaiting MRI of breast. Her breast is improved and does not appear to be consistent with inflammatory breast ca, but breast MRI is warranted. Will
work on moving this up as pt could only get an November appointment. Await pulmonary opinion and plan. Discussed with cardiology family med resident, Drs. Pritchett and Comfort.
[2023-10-16] MEDS: REFRESH EYE DROPS (PF) 1 DROPS BOTH EYES (18:35)
[2023-10-16 19:20] VITALS: BP 134/55
--- NOTE | 2023-10-16 19:41 | W.PN.UPDATE ---
Update Note
Progress Note Update
Clarification that the patient does not presently have a diagnosis of metastatic breast cancer although this is stated in several notes. Most likely this is lung cancer and await bronch and biopsy when anticoagulation can be held.
[2023-10-16] MEDS: TYLENOL 500 MG PO ×2 (19:59→21:24)
[2023-10-16] MEDS: TOPROL XL 12.5 MG PO (21:24)
[2023-10-16] MEDS: CRESTOR 10 MG PO (21:24)
[2023-10-16] MEDS: BENADRYL 25 MG PO (21:24)
[2023-10-16 23:54] VITALS: BP 94/40
[2023-10-17 03:22] VITALS: BP 106/38
[2023-10-17 07:30] VITALS: BP 97/50
[2023-10-17] MEDS: SYMBICORT 80/4.5 MCG INHALER 2 PUFF INH (07:59)
[2023-10-17] MEDS: SPIRIVA RESPIMAT 2.5 MCG 2 PUFF INH (08:00)
[2023-10-17] MEDS: ASPIR LOW (ENTERIC COATED) 81 MG PO (08:32)
[2023-10-17] MEDS: ELIQUIS 5 MG PO ×2 (08:32→21:05)
[2023-10-17] MEDS: LASIX 20 MG PO (08:32)
[2023-10-17] MEDS: CARDIZEM CD 240 MG PO (08:32)
[2023-10-17] MEDS: PAXIL 20 MG PO (08:33)
[2023-10-17] MEDS: VITAMIN B-12 2000 MCG PO (08:33)
[2023-10-17] MEDS: ATROPINE SULFATE 1% DROPS 1 DROP LEFT EYE ×2 (08:33→21:06)
[2023-10-17] MEDS: MIRALAX 8.5 GRAMS PO (08:33)
--- NOTE | 2023-10-17 09:11 | W.PN.HOSP.TC ---
Addendum entered and electronically signed by Jericho Pritchett MD 10/17/23 15:33:
I saw and evaluated the patient. I reviewed the resident�s note and agree with findings and plan as documented in the resident�s note.
Patient's feels her speech is coming back. Not much word finding difficulty. Not slurred. But she still feels she is not as great on her feet is before. Able to walk. Mild headache which is better compared to admission.
No new neurological symptoms.
Patient currently on Eliquis and aspirin was added to her regimen. Cardiology input noted and I discussed with cardiology today who recommends switching to Coumadin with IV heparin bridge if okay from neurology.
Discussed with neurology today who is apprehensive about IV heparin bridge due to risk of bleeding and advises to continue Eliquis and aspirin for now.
Patient would require interruption of anticoagulation when okay from neurology standpoint and obtain tissue sampling for her pulmonary abnormalities and lymphadenopathy.
Appreciate oncology and breast surgery input. I did speak with primary elevator operator service Dr. Moyer yesterday who would obtain tissue sampling when she is stable from stroke standpoint as an outpatient. She also will require a PET scan upon discharge.
DC planning
Original Note:
Today's Communication/Plan
-
Neurology consult--- pulm consult--echo--continue Eliquis with aspirin
Assessment / Plan
Assessment / Plan
Patient is a 83 year old right handed female who presented to the hospital with chief complaint of sudden onset of slurred speech and weakness. She gives a history of chronic atrial fibrillation on Eliquis, COPD, hypertension, hyperlipidemia,
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 She was recently admitted to from October 11 to October 13 with SOB, low blood pressure, elevated BNP and persistent A-fib with rapid ventricular rate. Patient was discharged
after heart rate was controlled with Cardizem and breathing was better. However, at 4 PM yesterday, while talking on the phone with neighbor, she noticed that her speech was slurred and she had word finding issues. This episode resolved and then
recurred a few minutes later. She then came into the emergency room and at the initial interview in the ER her speech was intact however family noted decreased speech output. There was no numbness or weakness of the face or extremities in the ER.
No episodes of altered consciousness or seizures no difficulty swallowing . No loss of balance incoordination or gait impairment since then her symptoms were intermittent and waxing and waning with persistent headaches in the frontal region. She
was placed on aspirin. Following admission she has been asymptomatic.
Brain MRI--Multiple scattered acute infarcts in the bilateral cerebral and cerebellar hemispheres. Infarcts may be embolic given the distribution--antiphospholipid antibody panel pending-- doctors hospital neurology input--continue aspirin 81 mg daily, speech
therapy, cardiac management, continue Eliquis for now-- doctors hospital cardiology consult ordered--This is possible Eliquis failure; recommend changing the patient over to Coumadin (goal INR 2.0-3.0) with heparin bridge, when cleared by Neurology--echo today
Brain CTA--No acute pathology identified. No evidence of M1 nor M2 occlusion. No carotid dissection--Less than 50% right proximal internal carotid artery stenosis. Mild atherosclerotic vascular disease--Mild left cervical, and severe
supraclavicular, infraclavicular, left superior mediastinum and prevascular lymphadenopathy. Mild left hilar lymphadenopathy--Pulmonary masses and nodules.PET imaging recommended if not previously performed
apprec hematology consult:
-- anemia-- replete both iron levels and B12 --check methylmalonic acid
--CVAs occurring on Eliquis--check cardiolipin antibodies and lupus anticoagulant--echocardiogram with bubble study
--lung mass--consider pulmonary opinion
--abnormal left breast-- consult Dr. Jacobo (breast surgeon)
Breast skin changes--apprec breast surg consult:patient does not presently have a diagnosis of metastatic breast cancer. Most likely this is lung cancer and await bronch and biopsy when anticoagulation can be held. breast MRI is warranted. Will work
on moving this up as pt could only get an November appointment.
DVT prophylaxis--continue Eliquis
Anticipated Discharge: 24 - 48 hours
Subjective/Interval History
-
Date of Service: October 17, 2023
Patient is feeling good in general. Is alert and oriented. Did not have any changes in speech, walking or consciousness overnight. Is feeling a bit sad and worried about the possibility of cancer. She mentioned she would not like a psychiatrist
to come visit her.
Objective Data
-
Vital Signs:
Vital Signs
Temp Pulse Resp BP Pulse Ox
98.5 F 73 16 106/38 94
10/17/23 07:30 10/17/23 08:32 10/17/23 08:05 10/17/23 08:32 10/17/23 08:05
I&O
10/16/23 10/17/23 10/18/23
06:59 06:59 06:59
Intake Total 480 / 480 600 / 600
Balance 480 / 480 600 / 600
Review of Systems
-
History Source: Patient
All other systems: Reviewed and negative
EENT: Reports Dry Eyes
Abdomen/GI: Reports Black Stools
Breast: Reports Skin Changes
Neuro: Reports Headache
Psych: Reports Sad and Anxious
Physical Exam
-
General: Well Developed, Well Nourished and No Apparent Distress
HEENT: Normocephalic and Atraumatic
Respiratory: Clear to Auscultation
Cardiac: S1/S2 and Irregular Rhythm
Breast: Skin Changes
GI: Soft, Nontender and Nondistended
Genito-urinary: No Costovertebral Tender
Musculoskeletal: No Clubbing, No Cyanosis and No Edema
Skin: Warm
Neuro: Awake, Alert, Oriented and AO x 3
Hematologic / Lymphatic: No Lymphadenopathy
Data Reviewed
-
Total Time Spent with Patient (in minutes): 30
--- NOTE | 2023-10-17 09:37 | W.PN.CD ---
Addendum entered and electronically signed by Kevin Rosenberg MD 10/17/23 13:28:
Patient seen in collaboration with PGY-2 resident; agree with below.
-No major events overnight.
-Exam: Irregular rate and rhythm, clear lungs.
-Case discussed with primary Hospitalist and Neurologist; placing patient on Coumadin with a heparin or Lovenox bridge with increased risk of bleeding/hemorrhagic conversion.
-As per Neurology, continue Eliquis and add aspirin 81 mg daily.
-Echocardiogram today revealed an LVEF of 55% with no significant valve abnormalities.
-No further cardiac recommendations at this time; outpatient follow-up with Cardiology.
Original Note:
Today's Communication / Plan
-
Defer Anticoagulation plan to neurology,given acute embolic stroke.
Impression / Plan
-
Background -
83-year-old female known to cardiology service in the past for permanent A-fib on long-term anticoagulation, chronic heart failure, anemia of chronic disease and abnormal troponins during her last admission. Her past medical history chronic A-fib
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
in 10/15/2023 for evaluation of TIA/CVA.
Impression-
TIA/CVA-embolic.
-As evidenced by symptoms, brain MRI.
-Underlying etiology undetermined. Could be from hypercoagulable state, failure of Eliquis, prothrombotic state. Need thorough workup for hypercoagulable state.
-Oncology, neurology on board.
- Bubble study pending.
Permanent AFIB:
- As evidenced by EKG and telemetry.
-Patient has been consistent with taking her Eliquis doses. Hence consider this as Eliquis failure. On arrival Touch based with neurology, appreciate inputs. Defer anticoagulation plan to neurology team
CHF-unknown type.
-BNP highest -1999 from previous admit
-Clinically no evidence of symptoms hence no exacerbation.
-Echocardiogram with bubble study.
-Patient on metoprolol succinate 12.5 for rate control, diltiazem to 40 Mg for rhythm control.
Anemia:
Abnormal CT scan
Subjective-
Feeling better symptoms figueroa, but anxious about a possible diagnosis of cancer.
Data reviewed-
Telemetry 10/17/[id number] controlled A-fib, cardiac pauses less than 3 seconds.
EKG 10/16/2023-A-fib, low amplitude QRS complexes.
Head CT 10/15/2023-negative
CT angiogram of neck 10/15/2023--less than 50% of right proximal internal carotid artery stenosis.
MRI of brain 10/16/2023--multiple scattered acute infarcts.
CT abdomen 10/13/2023--multiple abnormalities, splenic infarct.
Echo 01/23/20: Normal left ventricular size, wall thickness and systolic function. Diastolic function indeterminate. Normal right ventricular size and function. Mild mitral regurgitation.
Physical Exam
Vital Signs/Labs
Vital Signs
Temp Pulse Resp BP Pulse Ox
98.5 F 73 16 106/38 94
10/17/23 07:30 10/17/23 08:32 10/17/23 08:05 10/17/23 08:32 10/17/23 08:05
10/16/23 10/17/23 10/18/23
06:59 06:59 06:59
Actual Weight 66.723 kg
10/15/23 17:57
Magnesium 1.9 mg/dl (1.6-2.3) 10/15/23 17:57
Triglycerides 87 mg/dl (10-149) 10/16/23 06:44
LDL Cholesterol, Calc 46 mg/dl 10/16/23 06:44
VLDL Cholesterol, Calc 17 mg/dl (0-30) 10/16/23 06:44
HDL Cholesterol 40 mg/dl 10/16/23 06:44
Physical Exam
Constitutional: No acute distress
EENT: Moist mucous membranes
Cardiovascular: Rhythm/rate is irregular, S1S2 is normal and Murmur/rub/gallop absent
Respiratory: Respiratory effort normal, Lungs clear to auscul. and Crackles Present (faint in left lower lobe)
GI: Normal bowel sounds
Neuro/Psych: AO x 3
Data Reviewed
-
Date of Service: October 17, 2023
EKG: Tracing Personally Visualized and interpreted
Echo: Tracing Personally Visualized and interpreted
Medical Tests (PFT, Pathology etc): Image Personally Visualized and interpreted
Labs: Labs Reviewed by me
[2023-10-17 10:06] LABS: LDH 232 U/L (120-246)
--- NOTE | 2023-10-17 10:07 | VNURNOTE ---
Home health liaison met with patient to discuss [facility] services, visit scheduling/frequency, homebound status and pet policy. Patient understands home visits will be 1-2 times a week to assess and teach medical management. Patient aware a visiting
nurse will contact them for start of care within 1-2 days after discharge from . Patient states she is unsure if she wants to have homecare services when discharged and would like to think about it. Home health liaison gave patient work cell phone
number and patient agreeable to let liaison know.
[2023-10-17 11:10] VITALS: BP 101/64
--- NOTE | 2023-10-17 11:29 | W.PN.ONC2 ---
Addendum entered and electronically signed by Laura Zavala MD 10/17/23 12:05:
agree w/ A&P as outlined below
Original Note:
Today's Communication / Plan
-
follow up pulmonary and neurology consult
Impression
Impression
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
Normocytic normochromic anemia; borderline B12 and iron stores
Abnormal CT scan of the chest; known hamartoma, possible new lung mass, apparent pathologic adenopathy
Edema of the left breast, left axillary adenopathy, left supraclavicular adenopathy
Plan
Plan
#anemia
-replete iron, IV iron day 04/13
-replete B12, PO B12 started today, f/u methylmalonic acid
-f/u SPEP, FLC
#CVAs occurring on Eliquis for AF
- Multiple scattered acute infarcts in the bilateral cerebral and cerebellar hemispheres
-anticoagulation/antiplatelet per cardiology. Echo pending
-f/u Cardiolipin antibodies, lupus anticoagulant, b2 glycoprotein.
#Lung mass and adenopathy
-follow up pulmonary consult
-pt tells me that OP PET being arranged by pulmonary
#abnormal left breast
-appreciate Dr. Jacobo input
-OP breast MRI planned upon discharge
Subjective/Objective
Chief Complaint
no new complaints
Subjective
sitting in chair, conversational, no distress
Vital Signs:
Vital Signs
Temp Pulse Resp BP Pulse Ox
98.1 F 79 16 101/64 98
10/17/23 11:10 10/17/23 11:10 10/17/23 11:10 10/17/23 11:10 10/17/23 11:10
Lab Results:
Laboratory Data
WBC 8.5 10^3/uL (4.8-10.8) 10/15/23 17:57
Hgb 8.3 g/dL (12.0-16.0) L 10/15/23 17:57
Plt Count 371 10^3/uL (130-400) 10/15/23 17:57
Physical Exam
no acute distress.
HEENT exam is unremarkable with the exception of a severely injured left eye.
There is a suggestion of left axillary adenopathy, and I am fairly certain there is a 1 cm left supraclavicular node.
Chest is clear.
Breat left breast with dependent edema, no palpable adenopathy
The heart is regular with no murmur or gallop.
The abdomen is soft and nontender
Extremities no edema
Neurologic a&o3, speech clear
Review of Systems
Review of Systems
Review of systems notable for subjective, otherwise negative
--- NOTE | 2023-10-17 13:10 | CM ---
visited with Madeline today; she had originally chosen [facility] for home care services, however is now unsure if she feels she needs home care.
[facility] liaison aware of same; Madeline will contact [facility] once she gets home to advise if she would like services or not.
Plan: Discharge to home; pt to consider home care once she is home; will call [facility] office with decision.
Pharmacy: [facility]
PCP: DR Hopkins
[2023-10-17] MEDS: FERRLECIT 110 MG IV (13:27)
[2023-10-17 15:02] VITALS: BP 100/36
[2023-10-17 19:40] VITALS: BP 116/41
[2023-10-17] MEDS: CRESTOR 10 MG PO (21:05)
[2023-10-17] MEDS: TYLENOL 500 MG PO (21:05)
[2023-10-17] MEDS: TOPROL XL 12.5 MG PO (21:05)
--- NOTE | 2023-10-17 22:01 | W.PN.NEURO.1 ---
Today's Communication / Plan
-
Advised against IV Heparin due to high risk of intracerebral bleeding with subsequent morbidity of permanent disability and mortality
Neuro Assessment/Plan
Plan
83 yr. old lady with h/o embolic infarctions bilaterally on Eliquis. Started aspirin 81 mg.
Subjective/Objective
Subjective Data
Date of Service: October 17, 2023
Pat at baseline. Awake alert OX3. Speech fluent. No weakness or sensory deficits. Chronic eye injury(L)
Objective Data
Vital Signs
Temp Pulse Resp BP Pulse Ox
37.2 C 74 20 116/41 94
10/17/23 19:40 10/17/23 21:05 10/17/23 19:40 10/17/23 21:05 10/17/23 19:40
Lab Results
10/15/23 17:57
LDL Cholesterol, Calc 46 mg/dl 10/16/23 06:44
Patient Allergies
amoxicillin Allergy (Verified 10/15/23 17:33)
Unknown
morphine [Morphine] Allergy (Verified 10/15/23 17:33)
tremors, nausea , 'Twitching', tremors
Review of Systems
-
History Source: Patient
All other systems: Reviewed and negative
Constitutional: No Symptoms
EENT: No Symptoms Reported
Respiratory: No Symptoms
Cardiac: No Symptoms
Abdomen/GI: Black Stools
Genitourinary: No Symptoms
Musculoskeletal: No Symptoms
Skin: No Symptoms
Neuro: No Symptoms
Endocrine: No Symptoms
Hematologic / Lymphatic: No Symptoms
Allergy / Immunology: No Symptoms
Physical Exam
-
General: Well Developed and Well Nourished
Eyes: Other (Left Eye injury)
HEENT: Normocephalic and Other (Left eye injury)
Neck: No Bruits Bilaterally
Respiratory: Clear to Auscultation
Cardiac: Regular Rhythm and No Murmur
GI: Normal Bowel Sounds
Skin: Unremarkable
Extremities: No Clubbing, No Cyanosis and No Edema
Psych: Anxious
Extended Neurological Exam
Mood & Affect: Mood Unremarkable and Affect Unremarkable
Attention Span & Concentration: Awake, Alert, Interactive and No Difficulty with 2 Step Request
Memory: Unremarkable, Recalls Objects and Recalls Short Term
Tremor: Hand Tremor Absent and Head Tremor Absent
Involuntary Movement: None
Speech: Quality Unremarkable, Quantity Unremarkable and Rate of Production Unremarkable
Cranial Nerve II: Left Eye: No Vision
Cranial Nerve II: Right Eye: Pupillary Reactivity Unremarkable and Pupillary Size Unremarkable
Cranial Nerves III, IV, : Extraocular Movement: Extraocular Movement Right and Other (Left eye injury. BLIND OS)
Cranial Nerve V: Facial Sensation: Facial Sensation Unremarkable to Cold and Intact to Light Touch
Cranial Nerve VII: Facial Symmetry: Normal Facial Symmetry
Cranial Nerve VIII: Hearing: Unremarkable Hearing to Normal Conversational Volume
Cranial Nerves IX, X: Palate Movement: Palate Elevation Symmetric
Cranial Nerve XI: Shoulder Shrug: Unremarkable
Cranial Nerve XII: Tongue Protusion: Midline
Muscle Strength, Overall: Full Throughout
Muscle Bulk & Tone: Bulk Unremarkable and Tone Unremarkable
Pronator Drift: No Drift in Upper Extremities and No Drift in Lower Extremities
Deep Tendon Reflexes: Unremarkable Throughout
Cold Sensation: Unremarkable
Vibration Sensation: Unremarkable
Touch Sensation: Unremarkable
Coordination: [id number] Testing Unremarkable
Babinski Sign: Absent Bilaterally
Gait & Station: Unremarkable Arm Swing, Up from Seated Without Problem and Up from Lying with Difficulty
Modified Nott[place] Score (MRS)
-
Modified Nott[place] Scale (mRS): Slight disability. Able to look after own affairs.
Score: 2
[2023-10-17 23:45] VITALS: BP 108/47
[2023-10-18] VITALS (8 sets, daily range): BP systolic 102–1397; BP diastolic 9–68; PULSE 68; O2SAT 96
[2023-10-18] MEDS: MIRALAX 8.5 GRAMS PO (07:56)
[2023-10-18] MEDS: CARDIZEM CD 240 MG PO (07:57)
[2023-10-18] MEDS: VITAMIN B-12 2000 MCG PO (07:57)
[2023-10-18] MEDS: LASIX 20 MG PO (07:57)
[2023-10-18] MEDS: PAXIL 20 MG PO (07:57)
[2023-10-18] MEDS: ATROPINE SULFATE 1% DROPS 1 DROP LEFT EYE ×2 (07:57→21:18)
[2023-10-18] MEDS: ASPIR LOW (ENTERIC COATED) 81 MG PO (07:58)
[2023-10-18] MEDS: ELIQUIS 5 MG PO (08:18)
[2023-10-18] MEDS: SPIRIVA RESPIMAT 2.5 MCG 2 PUFF INH (08:21)
[2023-10-18] MEDS: SYMBICORT 80/4.5 MCG INHALER 2 PUFF INH (08:22)
--- NOTE | 2023-10-18 10:48 | W.PN.UPDATE ---
Update Note
Progress Note Update
I requested that the MRI Center work to move up her breast MRI, however, she more likely has lung cancer and as time to treatment is crucial, I reached out to Dr. Aguilera who said Darlene adams could
be initiated now after head CT obtained. Would see if pulmonary would be willing to perform bronchoscopy and biopsy or if this could be accomplished under CT guidance. PET scan would still need to be obtained on an outpatient basis and I have
asked the MRI center to work to move up her breast MRI into October.
--- NOTE | 2023-10-18 10:56 | VNURNOTE ---
Home health liaison spoke with patient again about having homecare services after discharge. Patient states she changed her mind and is interested in having home PT,SN, speech. Patient understands home visits will be 1-2 times a week to assess and
teach medical management. Patient aware a visiting nurse will contact her for start of care within 1-2 days after discharge from . VN Referral completed in care port
--- NOTE | 2023-10-18 11:19 | W.PN.HOSP.TC ---
Addendum entered and electronically signed by Jericho Pritchett MD 10/18/23 12:38:
I saw and evaluated the patient. I reviewed the resident�s note and agree with findings and plan as documented in the resident�s note.
patient has noticed a recurrence of her speech impairment. She is having word finding difficulty again. She had transient left frontal area headache. It was also noted that her swallowing is also an issue today.
No motor deficit or weakness.
Will obtain a CT head to rule out any intracranial bleed. Patient currently on Eliquis and aspirin.
Ongoing discussion with multiple subspecialist today by me regarding next best course of action for tissue sampling as concern is high for malignancy. If permitted for bridge Lovenox ,will try to obtain a tissue specimen on this admission.We will
also wait for Onc input regarding diagnostic eval .
Total time spent on today's encounter was 52 minutes which included time spent in counseling the patient/family regarding diagnosis and treatment plan as listed above, goals of care, and symptom management. Case was discussed with nursing staff,
specialists, and care coordinators/case management. All labs and imaging personally reviewed by me. Remainder the time spent in detailed review of previous records, lab data, imaging, and other medical provider documentation.
Original Note:
Today's Communication/Plan
-
Consult speech therapy --plan for discharge if cleared by neurology
Assessment / Plan
Assessment / Plan
Patient is a 83 year old right handed female who presented to the hospital with chief complaint of sudden onset of slurred speech and weakness. She gives a history of chronic atrial fibrillation on Eliquis, COPD, hypertension, hyperlipidemia,
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 She was recently admitted to from October 11 to October 13 with SOB, low blood pressure, elevated BNP and persistent A-fib with rapid ventricular rate. Patient was discharged
after heart rate was controlled with Cardizem and breathing was better. However, at 4 PM yesterday, while talking on the phone with neighbor, she noticed that her speech was slurred and she had word finding issues. This episode resolved and then
recurred a few minutes later. She then came into the emergency room and at the initial interview in the ER her speech was intact however family noted decreased speech output. There was no numbness or weakness of the face or extremities in the ER.
No episodes of altered consciousness or seizures no difficulty swallowing . No loss of balance incoordination or gait impairment since then her symptoms were intermittent and waxing and waning with persistent headaches in the frontal region. She
was placed on aspirin. Following admission she has been asymptomatic.
Brain MRI--Multiple scattered acute infarcts in the bilateral cerebral and cerebellar hemispheres. Infarcts may be embolic given the distribution--antiphospholipid antibody panel pending-- [facility] neurology input--continue aspirin 81 mg daily, speech
therapy, cardiac management, continue Eliquis for now-- [facility] cardiology consult ordered--This is possible Eliquis failure; recommend changing the patient over to Coumadin (goal INR 2.0-3.0) with heparin bridge, when cleared by Neurology--echo done
yesterday-- Normal left ventricular size, wall thickness and systolic function--Interatrial septum is intact with no evidence of shunting by agitated saline bubble study.
Appreciate neurology consult--Advised against IV Heparin due to high risk of intracerebral bleeding with subsequent morbidity of permanent disability and mortality--continue Eliquis and started aspirin 81 mg.
Brain CTA--No acute pathology identified. No evidence of M1 nor M2 occlusion. No carotid dissection--Less than 50% right proximal internal carotid artery stenosis. Mild atherosclerotic vascular disease--Mild left cervical, and severe
supraclavicular, infraclavicular, left superior mediastinum and prevascular lymphadenopathy. Mild left hilar lymphadenopathy--Pulmonary masses and nodules.PET imaging recommended if not previously performed
[facility] hematology consult:
-- anemia-- replete both iron levels and B12 --check methylmalonic acid
--CVAs occurring on Eliquis--check cardiolipin antibodies and lupus anticoagulant--echocardiogram with bubble study
--lung mass--consider pulmonary opinion
--abnormal left breast-- apprec Dr. Jacobo (breast surgeon) consult--patient does not presently have a diagnosis of metastatic breast cancer. Most likely this is lung cancer and await bronch and biopsy when anticoagulation can be held. breast MRI
is warranted. Will work on moving this up as pt could only get an November appointment.
DVT prophylaxis--continue Eliquis
New episode of slurred speech last night--consult speech therapy
CODE STATUS: DNR
Anticipated Discharge: Within 24 hours
Subjective/Interval History
-
Date of Service: October 18, 2023
Patient is anxious and a bit overwhelmed about her recent stroke attacks. 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 no loss of consciousnes, unsteady gait, numbness or tingling. She has waxing and
waning left temporal headache.
Objective Data
-
Vital Signs:
Vital Signs
Temp Pulse Resp BP Pulse Ox
98.1 F 79 16 135/65 95
10/18/23 07:05 10/18/23 08:24 10/18/23 08:24 10/18/23 07:57 10/18/23 09:47
I&O
10/17/23 10/18/23 10/19/23
06:59 06:59 06:59
Intake Total 600 / 600 820 / 820
Balance 600 / 600 820 / 820
Review of Systems
-
History Source: Patient
All other systems: Reviewed and negative
Constitutional: Reports Weight Loss
Breast: Reports Skin Changes
Neuro: Reports Headache
Psych: Reports Sad and Anxious
Physical Exam
-
General: Well Developed and Well Nourished
HEENT: Normocephalic and Atraumatic
Respiratory: Clear to Auscultation
Cardiac: S1/S2 and Irregular Rhythm
Breast: Skin Changes
GI: Soft, Nontender and Nondistended
Genito-urinary: No Costovertebral Tender
Musculoskeletal: No Clubbing, No Cyanosis and No Edema
Skin: Warm
Neuro: Awake, Alert, Oriented and AO x 3
Hematologic / Lymphatic: No Lymphadenopathy
Psych: Anxious
Data Reviewed
-
Total Time Spent with Patient (in minutes): 30
--- NOTE | 2023-10-18 11:38 | W.PN.ONC2 ---
Today's Communication / Plan
-
follow up pulmonary consult to determine if in vs outpt bx should be pursued
Medical oncology follow up will be arranged upon discharge
Impression
Impression
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
Normocytic normochromic anemia; borderline B12 and iron stores
Abnormal CT scan of the chest; known hamartoma, possible new lung mass, apparent pathologic adenopathy
Edema of the left breast, left axillary adenopathy, left supraclavicular adenopathy
Plan
Plan
#anemia
-replete iron, IV iron day 2/ -course can be completed OP upon discharge in the office
-replete B12, PO B12 started 10/16, f/u methylmalonic acid
-f/u SPEP, FLC
#CVAs occurring on Eliquis for AF
- Multiple scattered acute infarcts in the bilateral cerebral and cerebellar hemispheres
-anticoagulation/antiplatelet per cardiology.
-2D echo Normal left ventricular size, wall thickness and systolic function, LVEF 55%, No significant valve abnormalities detected.
-f/u Cardiolipin antibodies, lupus anticoagulant, b2 glycoprotein.
-PT/OT/speech
#Lung mass and adenopathy
-follow up pulmonary consult
-pt tells me that OP PET being arranged by pulmonary
#abnormal left breast
-appreciate Dr. Jacobo input
-OP breast MRI planned upon discharge
Subjective/Objective
Chief Complaint
dysarthria worse today
Subjective
denies bleeding or pain
Vital Signs:
Vital Signs
Temp Pulse Resp BP Pulse Ox
98.1 F 79 16 135/65 95
10/18/23 07:05 10/18/23 08:24 10/18/23 08:24 10/18/23 07:57 10/18/23 09:47
Lab Results:
Laboratory Data
WBC 8.5 10^3/uL (4.8-10.8) 10/15/23 17:57
Hgb 8.3 g/dL (12.0-16.0) L 10/15/23 17:57
Plt Count 371 10^3/uL (130-400) 10/15/23 17:57
Physical Exam
no acute distress.
HEENT severely injured left eye.
Chest is clear.
Breast left breast with dependent edema, no palpable adenopathy
Irreg, irreg
The abdomen is soft and nontender
Extremities no edema
Neurologic a&o3, dysarthria
Review of Systems
Review of Systems
notable for subjective otherwise negative
--- NOTE | 2023-10-18 12:40 | CON.PUL ---
Consultation
Consultation Request
Date/Time Consultation Requested: 10/18/2023 - 1123
Date/Time Consultation Performed: 10/18/2023 - 1215
Requesting Provider: Dr. Pritchett
Performing Provider: Dr. Vasquez
Reason for Consultation: Lung nodules
Medical History
-
Chief Complaint: Slurred speech, headache and abnormal walking
History of Present Illness:
83-year-old female with a past medical history of A-fib on Eliquis, former tobacco use disorder, vertigo, anemia, left upper lobe hamartoma, hyperlipidemia, diverticulosis and history of psoriasis who presented with slurred speech, headache and
abnormal gait. She was initially afebrile to 98.9 �F, with heart rate 68, respiratory rate 20, BP 100/45 and saturating 95% on room air. Initial labs showed Hb 8.3, urinalysis with trace leukocyte esterase, and initial CT head showed no acute
intracranial normality. CTA head/neck also showed no acute pathology. Neurology was consulted and she was admitted to the hospitalist service for further management. Neurology recommended adding aspirin to her Eliquis, and a brain MRI performed
on 10/16/2023 showed multiple scattered acute ischemic infarcts in the bilateral cerebral/cerebellar hemispheres. She did have an echo performed on 10/17/2023 showing intact interatrial septum with no evidence of shunting, with preserved LVEF at 55%
with no significant valvular abnormalities. Of note she was recently hospitalized here from 10/11 - 10/14/2023 due to rapid A-fib with acute HFpEF. She was diuresed, heart rate was controlled and she also obtained a CT chest, abdomen, pelvis during
that hospitalization. This was an abnormal study with multiple bilateral lung nodules and left-sided lymphadenopathy in the mediastinum, thoracic inlet/supraclavicular space, as well as left breast soft tissue stranding with dermal thickening and
mild left axillary adenopathy. There also was 2 low-attenuation structures in her left lobe of her liver measuring 1.2 cm +1.7 cm. Because of the patient's new embolic strokes despite her being on Eliquis with possibility of tumor emboli, oncology
was consulted. Breast surgery also consulted and a breast MRI is pending. Breast surgeon is not concern for inflammatory breast cancer given her improved left breast clinically. This also makes metastatic breast cancer less likely although not
impossible. Due to her abnormal CT chest recently, pulmonary service now consulted for additional management/recommendations.
When I saw the patient she was still feeling unsteady, although breathing well on room air. She says that about 2 weeks ago her left breast felt enlarged and full, and she has not felt that before. She does admit to having night sweats recently as
well as weight loss. She says that she has been losing weight about 60 pounds which has been ongoing since her in 2020. She denies any bloody cough or cough at all. She denies chest pain, headache, nipple discharge, abdominal
pain, nausea, fevers or chills.
Of note, patient follows with us in the [facility] office with Dr. Moyer. Last office visit on 05/23/2023 for COPD, lung nodules and history of tobacco use disorder. Patient was on Spiriva + Arnuity at the time. Pulmonary rehab was encouraged.
Patient has multiple pulmonary nodules which are known which has been monitored at [facility] since 2004. She has a known 5.5 cm lingular mass. Last PFT at that office visit in May 2023 showed moderate COPD with positive/nonsignificant
bronchodilator response, with mild gas exchange capacity defect which is normal when accounting for alveolar volume involving gas exchange (DLco: 60%; DLco/VA: 95%). Patient was going to follow-up with us in January 2024. Of note, she later
changed her inhalers to Trelegy and was doing well on this.
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
PSHx: Right oophorectomy, left TKA, right TKA, partial ostectomy posterior calcaneus with secondary Achilles tendon repair (left ankle), left eye surgery, right breast lump excision, lung biopsy (2013)
Past Medical History
Past Medical History: Other (Above as per HPI)
Past Surgical History: Other (Above as per HPI)
Social History
Tobacco: Former Smoker (Quit in 1998 and smoked 1.5 PPD x 25 years)
Alcohol: Occasional (1-2 per week)
Drug: None
Personal:
Living: With Family (With her daughter)
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
Family History
Family History: CAD (Father + paternal grandfather: History of VT), Cancer (Denies a family history of breast cancer) and Other (Mother: Cirrhosis; Brother: A-fib)
Allergies / Home Medications
Allergies
Allergy/AdvReac Type Severity Reaction Status Date / Time
amoxicillin Allergy Unknown Verified 10/15/23 17:33
morphine [Morphine] Allergy tremors, Verified 10/15/23 17:33
nausea ,
'Twitching',
tremors
Home Medications
�Medication �Instructions �Recorded �Confirmed �Last Taken �Type
paroxetine HCl 20 mg tablet 20 mg PO DAILY Depression 09/15/08 10/15/23 10/15/23 History
apixaban 5 mg tablet (Eliquis) 5 mg PO BID 10/13/17 10/15/23 10/15/23 Rx
metoprolol succinate 25 mg 12.5 mg PO HS Blood pressure 06/18/20 10/15/23 10/14/23 History
tablet,extended release 24 hr
Unknown Eye Drops 1 drp RIGHT EYE BID Eye Condition 10/12/23 10/15/23 Unknown History
acetaminophen 500 mg tablet 500 mg PO QIDPRN PRN headache 10/12/23 10/15/23 10/11/23 History
(Tylenol Extra Strength)
atropine 1 % eye drops 1 drp LEFT EYE BID Eye Condition 10/12/23 10/15/23 10/15/23 History
clobetasol 0.05 % shampoo 1 applic topical SUWE Skin Issues 10/12/23 10/15/23 10/10/23 History
diphenhydramine 25 1 tab PO HS PRN sleep 10/12/23 10/15/23 10/11/23 History
mg-acetaminophen 500 mg tablet
(Tylenol PM Extra Strength)
ferrous sulfate 325 mg (65 mg 325 mg PO DAILY Supplement 10/12/23 10/15/23 10/15/23 History
iron) tablet
fluticasone fur. 100 mcg-umeclid 1 inh inhalation R DAILY 10/12/23 10/15/23 10/15/23 History
62.5 mcg-vilant 25 mcg Lung/Breathing Issues
inhalat.powder (Trelegy Ellipta)
fluticasone propionate 50 1 spray intranasal HS Congestion 10/12/23 10/15/23 10/14/23 History
mcg/actuation nasal
spray,suspension
polyethylene glycol 3350 17 gram 8.5 g PO DAILY Constipation 10/12/23 10/15/23 10/15/23 History
oral powder packet (Miralax)
rosuvastatin 10 mg tablet 10 mg PO HS High Cholesterol 10/12/23 10/15/23 10/14/23 History
diltiazem HCl 240 mg 240 mg PO DAILY #30 caps 10/14/23 10/15/23 10/15/23 Rx
capsule,extended release 24 hr
furosemide 20 mg tablet 20 mg PO DAILY #30 tabs 10/14/23 10/15/23 10/15/23 Rx
Review of Systems
-
History Source: Patient
All other systems: Negative unless noted
Vitals / Labs / Diagnostic Testing
Vital Signs
Temp Pulse Resp BP Pulse Ox
98.1 F 79 16 135/65 95
10/18/23 07:05 10/18/23 08:24 10/18/23 08:24 10/18/23 07:57 10/18/23 09:47
Lab Data
10/15/23 17:57
Diagnostic Testing:
Physical Exam
-
HEENT: Normocephalic, Anicteric and Other (Left eye deformity)
Cardiovascular: Irregular Rhythm (Irregularly irregular), Peripheral Edema (Negative) and Other (Normal heart rate)
Respiratory: Wheeze (Negative), Rales (Posterior right lung ), Rhonchi (Negative) and Non-Labored Respirations
GI: Soft, Non Distended, Non Tender and Normal Bowel Sounds
Neurology: Awake, Alert and Tremors (Negative)
Skin: Warm and Dry
General: Respiratory Distress (Negative), Comfortable and Chills (Negative)
Assessment
-
Assessment: 83-year-old female with a past medical history of A-fib on Eliquis, former tobacco use disorder, vertigo, anemia, left upper lobe hamartoma, hyperlipidemia, diverticulosis and history of psoriasis who presented with slurred speech,
headache and abnormal gait. She was initially afebrile to 98.9 �F, with heart rate 68, respiratory rate 20, BP 100/45 and saturating 95% on room air. Initial labs showed Hb 8.3, urinalysis with trace leukocyte esterase, and initial CT head showed
no acute intracranial normality. CTA head/neck also showed no acute pathology. Neurology was consulted and she was admitted to the hospitalist service for further management. Neurology recommended adding aspirin to her Eliquis, and a brain MRI
performed on 10/16/2023 showed multiple scattered acute ischemic infarcts in the bilateral cerebral/cerebellar hemispheres. She did have an echo performed on 10/17/2023 showing intact interatrial septum with no evidence of shunting, with preserved
LVEF at 55% with no significant valvular abnormalities. Of note she was recently hospitalized here from 10/11 - 10/14/2023 due to rapid A-fib with acute HFpEF. She was diuresed, heart rate was controlled and she also obtained a CT chest, abdomen,
pelvis during that hospitalization. This was an abnormal study with multiple bilateral lung nodules and left-sided lymphadenopathy in the mediastinum, thoracic inlet/supraclavicular space, as well as left breast soft tissue stranding with dermal
thickening and mild left axillary adenopathy. There also was 2 low-attenuation structures in her left lobe of her liver measuring 1.2 cm +1.7 cm. Because of the patient's new embolic strokes despite her being on Eliquis with possibility of tumor
emboli, oncology was consulted. Breast surgery also consulted and a breast MRI is pending. Breast surgeon is not concern for inflammatory breast cancer given her improved left breast clinically. This also makes metastatic breast cancer less
likely although not impossible. Due to her abnormal CT chest recently, pulmonary service now consulted for additional management/recommendations.
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
Impression:
#Abnormal CT chest with multiple irregularly shaped nodules including the posterior CHRIS + RML, CHRIS well-circumscribed mass suspicious for hamartoma, with left-sided hilar, upper mediastinal and thoracic inlet lymphadenopathy
#Multiple pulmonary nodules including GGO + solid pulmonary nodules
#Left breast soft tissue stranding with diffuse dermal thickening and left axilla lymphadenopathy -patient says her left breast enlargement/fullness started about 2 weeks ago
#Centrilobular emphysema/moderate COPD on Trelegy
#Permanent A-fib on Eliquis
#Multiple acute ischemic CVA: Differential includes tumor emboli versus cardioembolic versus thromboembolic vs in-situ
#Chronic anemia
Plan:
- I personally reviewed the patient's CT chest, abdomen, pelvis as well as related consults and documentation, and there definitely is concern for primary bronchogenic carcinoma. It appears that the index lesion is this posterior left upper lobe
nodule, although her RML nodule also looks concerning
- Given left-sided supraclavicular/thoracic lymphadenopathy, this is the easiest access point for biopsy especially if there is concern for lung cancer, and this extrathoracic biopsy would yield a higher stage
- IR consulted, I spoke with Dr. Gurrola, and they are amenable to doing left supraclavicular lymph node biopsy tomorrow (10/19/2023)
- Anticoagulation will need to be held given her recent multiple embolic CVA now on Eliquis + aspirin - stop Eliquis, and can resume tomorrow night after procedure assuming she is not a bleeding risk
- Patient was already getting a whole-body PET/CT which was being arranged through our office � this can be obtained as an outpatient
- The above was confirmed with neurology, cardiology, oncology, breast surgery and hospitalist medicine
- Continue to follow-up with breast surgeon and obtain outpatient left breast MRI
- Maintain SpO2 >88-94% with supplemental O2 as needed
- Continue with Symbicort + Spiriva, and once patient is ready for discharge, resume Trelegy
- prn nebulized bronchodilators with albuterol
- Incentive spirometer encouraged
- Replete electrolytes with K>4, Mg>2
- Transfuse if needed to keep Hb>7, plt>100k
- Maintain euglycemia with goal BG >100 and <180
- DVT ppx
Pulmonary service will continue to follow along. Outpatient follow-up with our office will be arranged; she currently has an appointment with Dr. Moyer on 10/23/2023 at 11 AM. This can be postponed if she is not discharged from the hospital in
time for that appointment.
Total time spent today was 55 minutes for this encounter. Time includes reviewing laboratory test/imaging results, reviewing pertinent medical records, obtaining and reviewing medical history, performing an appropriate exam, ordering medications,
tests and procedures. Time also includes documentation of this encounter, coordinating patient care and communicating with other healthcare professionals. Total time does not include separately billed tests performed on this date of service.
Data:
CTA Chest/Abd/Pelvis w/wo contrast 10-13-2023:
No thoracic or abdominal aortic aneurysm or dissection.
Slightly prominent main pulmonary artery which could suggest an element of pulmonary artery hypertension. As far as visualized, no evidence of pulmonary embolism.
Prominent mediastinal adenopathy especially in the prevascular space, as well as adenopathy at the base of the left neck and at the thoracic inlet. Neoplastic process to BE excluded.
2.6 x 2.3 cm left upper lobe pulmonary mass. Neoplasm to be excluded.
Nonspecific slightly irregular 1.7 cm right middle lobe parenchymal opacity.
Mild mucous plugging.
5 cm round circumscribed left upper lobe pulmonary mass with central soft tissue and fat attenuation as well as a few small calcific foci, which measured 4.1 cm in 2014. Most likely hamartoma.
Asymmetric enlargement with increased soft tissue stranding in the left breast as well as left breast dermal thickening and mild left axillary adenopathy. Clinical correlation advised to exclude the possibility of inflammatory breast carcinoma.
Splenic infarct.
Subtle diffuse hepatic heterogeneous attenuation, raising the possibility of underlying fatty infiltration. 8 mm low-attenuation focus at the inferior margin of the liver which is too small to fully characterize. At the inferior margin of the left
lobe there are 2 additional low-attenuation structures measuring 1.2 cm and 1.7 cm. Consider MRI for further characterization.
Possible biliary sludge versus tiny calculi.
Renal cysts.
Diverticulosis without acute diverticulitis.
Mild adenopathy along the right common iliac chain.
Small cystic structures associated with the right ovary measuring up to 1.7 cm. Consider follow-up ultrasound.
Regions of sclerosis are also demonstrated involving T1, T2, and in the visualized lower cervical spine at C6 and C7. Consider follow-up bone scan.
TTE 10-17-2023:
Normal left ventricular size, wall thickness and systolic function.
LV ejection fraction is 55%
No significant valve abnormalities detected.
Compared to the previous [id number]/2020 there is no significant change
[2023-10-18] MEDS: FERRLECIT 110 MG IV (12:58)
--- NOTE | 2023-10-18 14:45 | PTOTSP ---
SPEECH THERAPY SWALLOW/SPEECH/LANGUAGE/COGNITIVE COMMUNICATION EVALUATION:
Patient exhibits signs concerning for pharyngeal dysphagia, likely chronic related to suspected primary bronchogenic carcinoma, and acutely exacerbated by CVA. Patient with grossly functional oral swallow at this time. Patient remains at risk for
aspiration and related complications given CVA and suspected lung cancer. WBC WNL. Chest CT without acute process or pneumonia. Recommend continue Regular texture diet and thin liquids. Medications whole with liquid as best tolerated. Aspiration
precautions including: Upright positioning; Small single sips/bites; Slow rate of intake. Speech therapy to follow, assess diet tolerance and modify as appropriate, determine indication for instrumental assessment of swallowing if warranted, monitor
CXR and labs, and provide continued diagnostic swallow therapy as appropriate.
Patient exhibits mild dysarthria and subsequently mildly reduced articulatory accuracy. Intelligibility remains grossly intact. Voice, expressive/receptive language, and cognitive communication skills grossly WFL at this time. Patient would benefit
from Speech therapy services at the acute care level and continued upon discharge to facilitate improvement in dysarthria/articulatory accuracy.
RECOMMEND:
1) Regular texture diet and thin liquids
2) Medications whole with liquid as best tolerated
3) Aspiration precautions including: Upright positioning; Small single sips/bites; Slow rate of intake
4) Speech therapy to follow for swallow and speech therapy
[2023-10-18 15:58] LABS: Lyme Antibody Screen, EIA Negative (Negative)
[2023-10-18] MEDS: LOVENOX 70 MG SC (21:17)
[2023-10-18] MEDS: TOPROL XL 12.5 MG PO (21:18)
[2023-10-18] MEDS: CRESTOR 10 MG PO (21:18)
[2023-10-18] MEDS: TYLENOL 500 MG PO (21:25)
[2023-10-19] VITALS (9 sets, daily range): BP systolic 72–121; BP diastolic 36–54; PULSE 68; O2SAT 95
[2023-10-19 00:11] LABS: Anti-Xa Qualitative Interp Present (Not Present); Anticoagulant Med Neutralizati DOAC-Stop (Not Performed); Hexagonal Phospholipid Confirm Not Performed s (<=7.9); Neutralized PTT-LA Ratio Not Performed (<=1.20); Neutralized dRVTT Screen Ratio 1.14 (<=1.20); PTT-LA Ratio 1.14 (<=1.20); Prothrombin Time 19.1 s (12.0-15.5); Thrombin Time Not Performed s (<=19.5); dRVTT 1.1 Mix Ratio Not Performed (<=1.20); dRVTT Confirmation Ratio Not Performed (<=1.20); dRVTT Screen Ratio 2.05 (<=1.20)
[2023-10-19 01:23] LABS: CA 15-3 Breast Antigens 120 U/mL (0-31)
[2023-10-19 03:02] LABS: Beta-2-Glycoprotein I Ab. IgA <10 SAU (<=20); Beta-2-Glycoprotein I Ab. IgG <10 SGU (<=20); Beta-2-Glycoprotein I Ab. IgM <10 SMU (<=20)
[2023-10-19 04:25] LABS: Free Kappa Light Chains,Quant 19.21 mg/L (3.30-19.40); Free Lambda Light Chains,Quant 17.33 mg/L (5.71-26.30); Kappa/Lambda Fr Light Ratio 1.11 (0.26-1.65)
[2023-10-19 07:27] LABS: Cardiolipin IgA Antibody <10 APL (<=11); Cardiolipin IgM Antibody <10 MPL (<=12); Cardiolipin Igg Antibody <10 GPL (<=14)
[2023-10-19] MEDS: SYMBICORT 80/4.5 MCG INHALER 2 PUFF INH (07:43)
[2023-10-19] MEDS: SPIRIVA RESPIMAT 2.5 MCG 2 PUFF INH (07:43)
[2023-10-19] MEDS: MIRALAX 8.5 GRAMS PO (08:26)
[2023-10-19] MEDS: LASIX 20 MG PO (08:28)
[2023-10-19] MEDS: ASPIR LOW (ENTERIC COATED) 81 MG PO (08:28)
[2023-10-19] MEDS: ATROPINE SULFATE 1% DROPS 1 DROP LEFT EYE ×2 (08:28→21:31)
[2023-10-19] MEDS: CARDIZEM CD 240 MG PO (08:29)
[2023-10-19] MEDS: PAXIL 20 MG PO (08:29)
[2023-10-19] MEDS: VITAMIN B-12 2000 MCG PO (08:29)
--- NOTE | 2023-10-19 09:43 | W.PN.HOSP.TC ---
Addendum entered and electronically signed by Jericho Pritchett MD 10/19/23 18:32:
I saw and evaluated the patient. I reviewed the resident�s note and agree with findings and plan as documented in the resident�s note.
Patient now s/p left supraclavicular biopsy with complication.
No new neurological symptoms.
Will start her back on anticoagulation with Eliquis. This was discussed with neurology Dr. Aguilera this morning.
Likely DC in a.m. if stable.
Original Note:
Today's Communication/Plan
-
Patient is scheduled for lymph node biopsy by IR later in the day today.
Assessment / Plan
Assessment / Plan
Patient is a 83 year old right handed female who presented to the hospital with chief complaint of sudden onset of slurred speech and weakness. She gives a history of chronic atrial fibrillation on Eliquis, COPD, hypertension, hyperlipidemia,
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 She was recently admitted to from October 11 to October 13 with SOB, low blood pressure, elevated BNP and persistent A-fib with rapid ventricular rate. Patient was discharged
after heart rate was controlled with Cardizem and breathing was better. However, at 4 PM yesterday, while talking on the phone with neighbor, she noticed that her speech was slurred and she had word finding issues. This episode resolved and then
recurred a few minutes later. She then came into the emergency room and at the initial interview in the ER her speech was intact however family noted decreased speech output. There was no numbness or weakness of the face or extremities in the ER.
No episodes of altered consciousness or seizures no difficulty swallowing . No loss of balance incoordination or gait impairment since then her symptoms were intermittent and waxing and waning with persistent headaches in the frontal region. She
was placed on aspirin.
Brain MRI--Multiple scattered acute infarcts in the bilateral cerebral and cerebellar hemispheres. Infarcts may be embolic given the distribution--antiphospholipid antibody panel pending-- apprec neurology input--continue aspirin 81 mg daily, speech
therapy, cardiac management, continue Eliquis for now-- apprec cardiology consult --This is possible Eliquis failure; recommend changing the patient over to Coumadin (goal INR 2.0-3.0) with heparin bridge, when cleared by Neurology--echo done--
Normal left ventricular size, wall thickness and systolic function--Interatrial septum is intact with no evidence of shunting by agitated saline bubble study.
Appreciate neurology consult--Advised against IV Heparin due to high risk of intracerebral bleeding with subsequent morbidity of permanent disability and mortality--continue Eliquis and start aspirin 81 mg.
Brain CTA--No acute pathology identified. No evidence of M1 nor M2 occlusion. No carotid dissection--Less than 50% right proximal internal carotid artery stenosis. Mild atherosclerotic vascular disease--Mild left cervical, and severe
supraclavicular, infraclavicular, left superior mediastinum and prevascular lymphadenopathy. Mild left hilar lymphadenopathy--Pulmonary masses and nodules.PET imaging recommended if not previously performed
apprec hematology consult:
-- anemia-- replete both iron levels and B12 --methylmalonic acid pending
--CVAs occurring on Eliquis-- cardiolipin antibodies pending
--lung mass--appreciate pulmonary opinion--Maintain SpO2 >88-94% with supplemental O2 as needed-- Continue with Symbicort + Spiriva, and once patient is ready for discharge, resume Trelegy-- prn nebulized bronchodilators with albuterol-- Incentive
spirometer encouraged-- Replete electrolytes with K>4, Mg>2 --IR consulted, they are amenable to doing left supraclavicular lymph node biopsy today (10/19/2023)--p.m. dose of Eliquis was held and single dose of Lovenox was given.
abnormal left breast-- apprec Dr. Jacobo (breast surgeon) consult--patient does not presently have a diagnosis of metastatic breast cancer. Most likely this is lung cancer and await bronch and biopsy when anticoagulation can be held. breast MRI is
warranted. Dr. Jacobo will work on moving this up as pt could only get an [place] appointment.
DVT prophylaxis--hold Eliquis for now for IR procedure to be done
slurred speech--appreciate speech consult-- Regular texture diet and thin liquids-- Speech therapy to follow for swallow and speech therapy
CODE STATUS: DNR
Anticipated Discharge: 24 - 48 hours
Subjective/Interval History
-
Date of Service: October 19, 2023
Patient is feeling good. Did not experience any new episodes of slurred speech, trouble swallowing, numbness tingling, unsteady gait or loss of consciousness. Patient states she is feeling anxious about her procedure today. She has tried
antianxiety medications before but is not interested in taking them now.
Objective Data
-
Vital Signs:
Vital Signs
Temp Pulse Resp BP Pulse Ox
98.2 F 77 16 121/49 95
10/19/23 07:26 10/19/23 08:29 10/19/23 07:48 10/19/23 08:29 10/19/23 07:48
I&O
10/18/23 10/19/23 10/20/23
06:59 06:59 06:59
Intake Total 820 / 820 960 / 960
Output Total 400 / 400
Balance 820 / 820 560 / 560
Review of Systems
-
History Source: Patient
All other systems: Reviewed and negative
Breast: Reports Skin Changes
Neuro: Reports Headache
Psych: Reports Anxious
Physical Exam
-
General: Well Developed, Well Nourished and Comfortable
HEENT: Normocephalic
Respiratory: Clear to Auscultation
Cardiac: S1/S2 and Irregular Rhythm
Breast: Skin Changes
GI: Soft, Nontender and Nondistended
Genito-urinary: No Costovertebral Tender
Musculoskeletal: No Clubbing, No Cyanosis and No Edema
Neuro: Awake, Alert, Oriented and AO x 3
Psych: Anxious
Data Reviewed
-
Total Time Spent with Patient (in minutes): 20
--- NOTE | 2023-10-19 12:36 | W.PN.PUL3 ---
Today's Communication / Plan
-
Continue with Symbicort + Spiriva
IR left supraclavicular lymph node biopsy today - follow-up pathology
Outpatient left breast MRI; follow up with breast surgeon
Resume Eliquis tonight as long as bleeding risk is low as per IR
Patient already has follow-up with our office on 10/23/[address] at [address] Moyer - patient advised to attend that visit
No additional recommendations from pulmonary service at this time - we will now sign off. Please reconsult if there are any additional questions/concerns, or if patient's respiratory status deteriorates.
Assessment
-
Assessment: 83-year-old female with a past medical history of A-fib on Eliquis, former tobacco use disorder, vertigo, anemia, left upper lobe hamartoma, hyperlipidemia, diverticulosis and history of psoriasis who presented with slurred speech,
headache and abnormal gait. She was initially afebrile to 98.9 �F, with heart rate 68, respiratory rate 20, BP 100/45 and saturating 95% on room air. Initial labs showed Hb 8.3, urinalysis with trace leukocyte esterase, and initial CT head showed
no acute intracranial normality. CTA head/neck also showed no acute pathology. Neurology was consulted and she was admitted to the hospitalist service for further management. Neurology recommended adding aspirin to her Eliquis, and a brain MRI
performed on 10/16/2023 showed multiple scattered acute ischemic infarcts in the bilateral cerebral/cerebellar hemispheres. She did have an echo performed on 10/17/2023 showing intact interatrial septum with no evidence of shunting, with preserved
LVEF at 55% with no significant valvular abnormalities. Of note she was recently hospitalized here from 10/11 - 10/14/2023 due to rapid A-fib with acute HFpEF. She was diuresed, heart rate was controlled and she also obtained a CT chest, abdomen,
pelvis during that hospitalization. This was an abnormal study with multiple bilateral lung nodules and left-sided lymphadenopathy in the mediastinum, thoracic inlet/supraclavicular space, as well as left breast soft tissue stranding with dermal
thickening and mild left axillary adenopathy. There also was 2 low-attenuation structures in her left lobe of her liver measuring 1.2 cm +1.7 cm. Because of the patient's new embolic strokes despite her being on Eliquis with possibility of tumor
emboli, oncology was consulted. Breast surgery also consulted and a breast MRI is pending. Breast surgeon is not concern for inflammatory breast cancer given her improved left breast clinically. This also makes metastatic breast cancer less
likely although not impossible. Due to her abnormal CT chest recently, pulmonary service now consulted for additional management/recommendations.
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
Impression:
#Abnormal CT chest with multiple irregularly shaped nodules including the posterior CHRIS + RML, CHRIS well-circumscribed mass suspicious for hamartoma, with left-sided hilar, upper mediastinal and thoracic inlet lymphadenopathy
#Multiple pulmonary nodules including GGO + solid pulmonary nodules
#Left breast soft tissue stranding with diffuse dermal thickening and left axilla lymphadenopathy -patient says her left breast enlargement/fullness started about 2 weeks ago
#Centrilobular emphysema/moderate COPD on Trelegy
#Permanent A-fib on Eliquis
#Multiple acute ischemic CVA: Differential includes tumor emboli versus cardioembolic versus thromboembolic vs in-situ
#Chronic anemia
Plan:
- I personally reviewed the patient's CT chest, abdomen, pelvis as well as related consults and documentation, and there definitely is concern for primary bronchogenic carcinoma. It appears that the index lesion is this posterior left upper lobe
nodule, although her RML nodule also looks concerning
- Given left-sided supraclavicular/thoracic lymphadenopathy, this is the easiest access point for biopsy especially if there is concern for lung cancer, and this extrathoracic biopsy would yield a higher stage
- IR consulted, I spoke with Dr. Gurrola, and they are amenable to doing left supraclavicular lymph node biopsy today (10/19/2023)
- Anticoagulation has been held since yesterday (10/17) - will resume tonight assuming low bleeding risk, given her recent multiple embolic CVA now on Eliquis + aspirin
- Patient was already getting a whole-body PET/CT which was being arranged through our office � this can be obtained as an outpatient
- The above was confirmed with neurology, cardiology, oncology, breast surgery and hospitalist medicine
- Continue to follow-up with breast surgeon and obtain outpatient left breast MRI
- Maintain SpO2 >88-94% with supplemental O2 as needed
- Continue with Symbicort + Spiriva, and once patient is ready for discharge, resume Trelegy
- prn nebulized bronchodilators with albuterol
- Incentive spirometer encouraged
- Replete electrolytes with K>4, Mg>2
- Transfuse if needed to keep Hb>7, plt>100k
- Maintain euglycemia with goal BG >100 and <180
- DVT ppx
No additional pulmonary recommendations at this time. Outpatient follow-up with our office will be arranged; she currently has an appointment with Dr. Moyer on 10/23/2023 at 11 AM. This can be postponed if she is not discharged from the hospital
in time for that appointment. I suspect that the patient can be discharged in the next 1-2 days.
Pulmonary service will now sign off. Thank you for allowing us to be involved in the care of this patient. Please reconsult if there are any additional questions/concerns, or if patient's respiratory status deteriorates.
Total time spent today was 35 minutes for this encounter. Time includes reviewing laboratory test/imaging results, reviewing pertinent medical records, obtaining and reviewing medical history, performing an appropriate exam, ordering medications,
tests and procedures. Time also includes documentation of this encounter, coordinating patient care and communicating with other healthcare professionals. Total time does not include separately billed tests performed on this date of service.
Data:
CTA Chest/Abd/Pelvis w/wo contrast 10-13-2023:
No thoracic or abdominal aortic aneurysm or dissection.
Slightly prominent main pulmonary artery which could suggest an element of pulmonary artery hypertension. As far as visualized, no evidence of pulmonary embolism.
Prominent mediastinal adenopathy especially in the prevascular space, as well as adenopathy at the base of the left neck and at the thoracic inlet. Neoplastic process to BE excluded.
2.6 x 2.3 cm left upper lobe pulmonary mass. Neoplasm to be excluded.
Nonspecific slightly irregular 1.7 cm right middle lobe parenchymal opacity.
Mild mucous plugging.
5 cm round circumscribed left upper lobe pulmonary mass with central soft tissue and fat attenuation as well as a few small calcific foci, which measured 4.1 cm in 2013. Most likely hamartoma.
Asymmetric enlargement with increased soft tissue stranding in the left breast as well as left breast dermal thickening and mild left axillary adenopathy. Clinical correlation advised to exclude the possibility of inflammatory breast carcinoma.
Splenic infarct.
Subtle diffuse hepatic heterogeneous attenuation, raising the possibility of underlying fatty infiltration. 8 mm low-attenuation focus at the inferior margin of the liver which is too small to fully characterize. At the inferior margin of the left
lobe there are 2 additional low-attenuation structures measuring 1.2 cm and 1.7 cm. Consider MRI for further characterization.
Possible biliary sludge versus tiny calculi.
Renal cysts.
Diverticulosis without acute diverticulitis.
Mild adenopathy along the right common iliac chain.
Small cystic structures associated with the right ovary measuring up to 1.7 cm. Consider follow-up ultrasound.
Regions of sclerosis are also demonstrated involving T1, T2, and in the visualized lower cervical spine at C6 and C7. Consider follow-up bone scan.
TTE 10-17-2023:
Normal left ventricular size, wall thickness and systolic function.
LV ejection fraction is 55%
No significant valve abnormalities detected.
Compared to the previous [id number] there is no significant change
Subjective Data
-
Date of Service:
Date of Service: October 19, 2023
Chief Complaint: Pulmonary Follow Up
Subjective:
Patient seen and evaluated today. She underwent her left supraclavicular lymph node biopsy today and tolerated it without any complications and she feels well. Patient's daughter, Courtney, at bedside. Patient currently on room air breathing
comfortably. Patient denies any particular complaints, denies chest pain, shortness of breath, abdominal pain, fevers or chills. Eager to go home.
Review of Systems
General: Other (Negative unless mentioned above)
Objective Data
Data Reviewed
Vital Signs / I&O / Oxygen:
Vital Signs
Temp Pulse Resp BP Pulse Ox
97.9 F 80 20 82/54 96
10/19/23 11:14 10/19/23 11:14 10/19/23 11:14 10/19/23 11:14 10/19/23 11:14
Intake and Output
10/18/23 10/19/23 10/20/23
06:59 06:59 06:59
Intake Total 820 / 820 960 / 960
Output Total 400 / 400
Balance 820 / 820 560 / 560
SaO2 96
Physical Exam
General: Respiratory Distress (Negative), Comfortable and Sweats (Negative)
HEENT: Normocephalic and Anicteric
Cardiovascular: S1-S2 and Peripheral Edema (Negative)
Respiratory: Wheeze (Negative), Crackles (Left base + middle lung garcia bilaterally) and Non-Labored Respirations
GI: Soft, Non Distended, Non Tender and Normal Bowel Sounds
Neurology: Awake, Alert and Tremors (Negative)
Skin: Warm, Dry, Cyanosis (Negative) and Jaundice (Negative)
Labs/Micro/Reports
Lab Data
10/15/23 17:57
[2023-10-19] MEDS: FERRLECIT 110 MG IV (13:24)
[2023-10-19] MEDS: ATIVAN 0.5 MG IV (14:51)
[2023-10-19] MEDS: NSS (PRESERVATIVE FREE) 0.25 ML IV (14:51)
--- NOTE | 2023-10-19 17:04 | CM ---
Patient anticipates discharge to home; unsure if she would like VN and will contact them directly once home if she would like services.
[2023-10-19] MEDS: TOPROL XL 12.5 MG PO (21:31)
[2023-10-19] MEDS: CRESTOR 10 MG PO (21:32)
[2023-10-19] MEDS: ELIQUIS 5 MG PO (21:32)
[2023-10-20 01:54] LABS: Phosphatidylserine Ab, IgA 0 APS (0-19); Phosphatidylserine Ab, IgG 0 GPS (0-15); Phosphatidylserine Ab, IgM 2 MPS (0-21)
[2023-10-20 03:37] VITALS: BP 101/43
[2023-10-20 07:21] VITALS: BP 109/53
[2023-10-20] MEDS: ATROPINE SULFATE 1% DROPS 1 DROP LEFT EYE (07:47)
[2023-10-20] MEDS: CARDIZEM CD 240 MG PO (07:47)
[2023-10-20] MEDS: ASPIR LOW (ENTERIC COATED) 81 MG PO (07:47)
[2023-10-20] MEDS: LASIX 20 MG PO (07:47)
[2023-10-20] MEDS: PAXIL 20 MG PO (07:48)
[2023-10-20] MEDS: MIRALAX 8.5 GRAMS PO (07:48)
[2023-10-20] MEDS: ELIQUIS 5 MG PO (07:48)
[2023-10-20] MEDS: VITAMIN B-12 2000 MCG PO (07:48)
[2023-10-20] MEDS: SYMBICORT 80/4.5 MCG INHALER 2 PUFF INH (07:51)
[2023-10-20] MEDS: SPIRIVA RESPIMAT 2.5 MCG 2 PUFF INH (07:51)
[2023-10-20 08:45] VITALS: BP 113/54; PULSE 73; O2SAT 94
--- NOTE | 2023-10-20 09:12 | W.PN.HOSP.TC ---
Documented by User: Erin Coffey MD, Resident 10/20/23 09:35
Today's Communication/Plan
-
Discharge if patient remains stable
Assessment / Plan
Assessment / Plan
Patient is a 83 year old right handed female who presented to the hospital with chief complaint of sudden onset of slurred speech and weakness. She gives a history of chronic atrial fibrillation on Eliquis, COPD, hypertension, hyperlipidemia,
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 She was recently admitted to from October 11 to October 13 with SOB, low blood pressure, elevated BNP and persistent A-fib with rapid ventricular rate. Patient was discharged
after heart rate was controlled with Cardizem and breathing was better. However, at 4 PM yesterday, while talking on the phone with neighbor, she noticed that her speech was slurred and she had word finding issues. This episode resolved and then
recurred a few minutes later. She then came into the emergency room and at the initial interview in the ER her speech was intact however family noted decreased speech output. There was no numbness or weakness of the face or extremities in the ER.
No episodes of altered consciousness or seizures no difficulty swallowing . No loss of balance incoordination or gait impairment since then her symptoms were intermittent and waxing and waning with persistent headaches in the frontal region. She
was placed on aspirin.
Brain MRI--Multiple scattered acute infarcts in the bilateral cerebral and cerebellar hemispheres. Infarcts may be embolic given the distribution--antiphospholipid antibody panel pending-- apprec neurology input--continue aspirin 81 mg daily, speech
therapy, cardiac management, continue Eliquis for now-- apprec cardiology consult --This is possible Eliquis failure; recommend changing the patient over to Coumadin (goal INR 2.0-3.0) with heparin bridge, when cleared by Neurology--echo done--
Normal left ventricular size, wall thickness and systolic function--Interatrial septum is intact with no evidence of shunting by agitated saline bubble study.
Appreciate neurology consult--Advised against IV Heparin due to high risk of intracerebral bleeding with subsequent morbidity of permanent disability and mortality--continue Eliquis and start aspirin 81 mg.
Brain CTA--No acute pathology identified. No evidence of M1 nor M2 occlusion. No carotid dissection--Less than 50% right proximal internal carotid artery stenosis. Mild atherosclerotic vascular disease--Mild left cervical, and severe
supraclavicular, infraclavicular, left superior mediastinum and prevascular lymphadenopathy. Mild left hilar lymphadenopathy--Pulmonary masses and nodules. PET imaging recommended if not previously performed.
Lymphadenopathy--IR consulted--p.m. dose of Eliquis was held and single dose of Lovenox was given prior to procedure. Left supraclavicular lymph node biopsy was done under ultrasound guidance (10/19/2023)--4 sample biopsies were taken, follow-up
pathology-- P.m. dose of Eliquis was resumed after procedure (per neurology consult).
abnormal left breast-- apprec Dr. Jacobo (breast surgeon) consult--patient does not presently have a diagnosis of metastatic breast cancer. Most likely this is lung cancer and await bronch and biopsy when anticoagulation can be held. breast MRI is
warranted. Dr. Jacobo will work on moving this up as pt could only get an November appointment.
apprec hematology consult:
-- anemia-- replete both iron levels and B12 --methylmalonic acid pending
--CVAs occurring on Eliquis-- cardiolipin antibodies negative
--lung mass--appreciate pulmonary opinion--Maintain SpO2 >88-94% with supplemental O2 as needed-- Continue with Symbicort + Spiriva, and once patient is ready for discharge, resume Trelegy-- prn nebulized bronchodilators with albuterol-- Incentive
spirometer encouraged-- Replete electrolytes with K>4, Mg>2
Appreciate pulmonary consult--Continue with Symbicort + Spiriva--Patient already has follow-up with office on 10/23/[address] at [address] Moyer - patient advised to attend that visit
DVT prophylaxis--resumed Eliquis
slurred speech--appreciate speech consult-- Regular texture diet and thin liquids-- Speech therapy to follow for swallow and speech therapy
CODE STATUS: DNR
Anticipated Discharge: Today
Subjective/Interval History
-
Date of Service: October 20, 2023
Patient does not note any new episodes of slurred speech, unsteady gait, dizziness overnight. Is feeling good in general. A bit concerned about her blood pressure fluctuations.
Objective Data
-
Vital Signs:
Vital Signs
Temp Pulse Resp BP Pulse Ox
98.3 F 78 16 109/53 94
10/20/23 07:21 10/20/23 07:54 10/20/23 07:54 10/20/23 07:21 10/20/23 07:54
I&O
10/19/23 10/20/23 10/21/23
06:59 06:59 06:59
Intake Total 960 / 960 240 / 240
Output Total 400 / 400
Balance 560 / 560 240 / 240
Review of Systems
-
History Source: Patient
All other systems: Reviewed and negative
Constitutional: Reports Weight Loss
EENT: Reports Other (Left eye is blind)
Breast: Reports Skin Changes
Physical Exam
-
General: Well Developed, Well Nourished, No Apparent Distress and Comfortable
HEENT: Normocephalic
Respiratory: Clear to Auscultation
Cardiac: S1/S2 and Irregular Rhythm
GI: Soft, Nontender and Nondistended
Genito-urinary: No Costovertebral Tender
Musculoskeletal: No Clubbing, No Cyanosis and No Edema
Skin: Warm
Neuro: Awake, Alert, Oriented and AO x 3
Hematologic / Lymphatic: No Lymphadenopathy
Psych: Calm
Data Reviewed
-
Total Time Spent with Patient (in minutes): 20

Documented by User: Jericho Pritchett MD 10/20/23 14:12
Today's Communication/Plan
-
Discharge
Assessment / Plan
Assessment / Plan
Patient is a 83 year old right handed female who presented to the hospital with chief complaint of sudden onset of slurred speech and weakness. She gives a history of chronic atrial fibrillation on Eliquis, COPD, hypertension, hyperlipidemia,
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 She was recently admitted to from October 11 to October 13 with SOB, low blood pressure, elevated BNP and persistent A-fib with rapid ventricular rate. Patient was discharged
after heart rate was controlled with Cardizem and breathing was better. However, at 4 PM yesterday, while talking on the phone with neighbor, she noticed that her speech was slurred and she had word finding issues. This episode resolved and then
recurred a few minutes later. She then came into the emergency room and at the initial interview in the ER her speech was intact however family noted decreased speech output. There was no numbness or weakness of the face or extremities in the ER.
No episodes of altered consciousness or seizures no difficulty swallowing . No loss of balance incoordination or gait impairment since then her symptoms were intermittent and waxing and waning with persistent headaches in the frontal region. She
was placed on aspirin.
Brain MRI--Multiple scattered acute infarcts in the bilateral cerebral and cerebellar hemispheres. Infarcts may be embolic given the distribution--antiphospholipid antibody panel neg-- apprec neurology input--continue aspirin 81 mg daily, speech
therapy, cardiac management, continue Eliquis for now-- apprec cardiology consult -- -echo done-- Normal left ventricular size, wall thickness and systolic function--Interatrial septum is intact with no evidence of shunting by agitated saline bubble
study.
Appreciate neurology consult--Advised continue Eliquis and start aspirin 81 mg.
Brain CTA--No acute pathology identified. No evidence of M1 nor M2 occlusion. No carotid dissection--Less than 50% right proximal internal carotid artery stenosis. Mild atherosclerotic vascular disease--Mild left cervical, and severe
supraclavicular, infraclavicular, left superior mediastinum and prevascular lymphadenopathy. Mild left hilar lymphadenopathy--Pulmonary masses and nodules. PET imaging recommended if not previously performed.
Lymphadenopathy-- re. Left supraclavicular lymph node biopsy was done under ultrasound guidance (10/19/2023)--4 sample biopsies were taken, follow-up pathology-- Eliquis was resumed after procedure (per neurology consult).
abnormal left breast-- apprec Dr. Jacobo (breast surgeon) consult--patient does not presently have a diagnosis of metastatic breast cancer. Most likely this is lung cancer and await bronch and biopsy when anticoagulation can be held. breast MRI is
warranted. Dr. Jacobo will work on moving this up as pt could only get an [place] appointment.
apprec hematology consult:
-- anemia-- replete both iron levels and B12 --methylmalonic acid pending
--CVAs occurring on Eliquis-- cardiolipin antibodies negative
--lung mass--appreciate pulmonary opinion---- Continue with Symbicort + Spiriva, and once patient is ready for discharge, resume Trelegy-- prn nebulized bronchodilators with albuterol-- Incentive spirometer encouraged
Appreciate pulmonary consult--Continue with Symbicort + Spiriva--Patient already has follow-up with office on 10/23/20[address] at [address] Moyer - patient advised to attend that visit
DVT prophylaxis--resumed Eliquis
slurred speech--appreciate speech consult-- Regular texture diet and thin liquids-- Speech therapy to follow for swallow and speech therapy
CODE STATUS: DNR
Medically stable for discharge home today. Discharge home with 3n.
Total time of discharge 32 minutes.
Left a message to daughter regarding dc plan
[2023-10-20 11:06] VITALS: BP 105/20
--- NOTE | 2023-10-20 12:34 | CM ---
CM reviewed chart- dc later today pending pt remains stable
Bedside meeting with pt
She is requesting [facility] be arranged on dc
IMM verbally reviewed- copy provided
Dtr will transport home
Update to [facility] via care portand pt [facility] accepted pt for service
TT Dr. Coffey requesting VN order
Discharge Disposition- home with [facility]- dtr transport
[2023-10-20] MEDS: FERRLECIT 110 MG IV (14:06)
--- NOTE | 2023-10-20 14:07 | W.DS.TRANS ---
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
-
Discharge Instructions:
Sleep Apnea Risk Low
Discharge Diagnosis/Procedures Speech difficulty with a mild expressive aphasia
secondary to embolic infarcts; A-fib on Eliquis
; chest lymphadenopathy with pulmonary nodules
Diet Low Cholesterol,2 Gram Sodium
Activity As tolerated
Driving Restrictions Not until seen by your Dr
Bathing Restrictions None
Other Services VN,PT,OT
Instructions:
Stand-Alone Forms:
Changes to Home Medications: Yes
Discharge Medications:
DC Medications w/original date entered in [employer]
paroxetine HCl 20 mg tablet 20 mg PO DAILY Depression 09/15/08
apixaban 5 mg tablet (Eliquis) 5 mg PO BID 10/13/17
metoprolol succinate 25 mg tablet,extended release 24 hr 12.5 mg PO HS Blood pressure 06/18/20
Unknown Eye Drops 1 drp RIGHT EYE BID Eye Condition 10/12/23
acetaminophen 500 mg tablet (Tylenol Extra Strength) 500 mg PO QIDPRN PRN headache 10/12/23
atropine 1 % eye drops 1 drp LEFT EYE BID Eye Condition 10/12/23
clobetasol 0.05 % shampoo 1 applic topical SUWE Skin Issues 10/12/23
diphenhydramine 25 mg-acetaminophen 500 mg tablet (Tylenol PM Extra Strength) 1 tab PO HS PRN sleep 10/12/23
ferrous sulfate 325 mg (65 mg iron) tablet 325 mg PO DAILY Supplement 10/12/23
fluticasone fur. 100 mcg-umeclid 62.5 mcg-vilant 25 mcg inhalat.powder (Trelegy Ellipta) 1 inh inhalation R DAILY Lung/Breathing Issues 10/12/23
fluticasone propionate 50 mcg/actuation nasal spray,suspension 1 spray intranasal HS Congestion 10/12/23
polyethylene glycol 3350 17 gram oral powder packet (Miralax) 8.5 g PO DAILY Constipation 10/12/23
rosuvastatin 10 mg tablet 10 mg PO HS High Cholesterol 10/12/23
diltiazem HCl 240 mg capsule,extended release 24 hr 240 mg PO DAILY #30 caps 10/14/23
furosemide 20 mg tablet 20 mg PO DAILY #30 tabs 10/14/23
aspirin 81 mg tablet,delayed release 81 mg PO DAILY #30 tabs 10/20/23
cyanocobalamin (vitamin B-12) 1,000 mcg tablet 2,000 mcg (2 x 1,000 mcg) PO DAILY #30 tabs 10/20/23
Home Medication Changes
New medication-aspirin and vitamin B12
Pending Results: No
--- NOTE | 2023-10-20 15:13 | W.DCSUMMARY ---
Discharge Summary
Discharge Data
Date of Admission: 10/16/23
Date of Discharge: 10/20/23
Total time spent discharging patient (in min): 20
-
Pending Results: Yes
Additional Pending Results:
Pending pathology from left supraclavicular lymph node biopsy
Hospital Course
Patient is a 83 year old right-handed female who presented to the ED with chief complaint of sudden onset of slurred speech and weakness. She gives a history of persistent atrial fibrillation on Eliquis, COPD, hypertension, hyperlipidemia, anemia,
left upper lobe hematoma, diverticulosis, history of psoriasis, left eye blindness following injury. She was previously admitted to from October 11 to October 13 with SOB, low blood pressure, elevated BNP and persistent A-fib with rapid ventricular
rate. Patient was discharged after heart rate was controlled with Cardizem and breathing was better. However, at 4 PM of the day prior to admission, while talking on the phone with neighbor, she noticed that her speech was slurred and had word
finding issues. This episode resolved and then recurred a few minutes later. She also reported waxing and waning frontal headache and unsteady gait. Upon arrival in the ED, she was afebrile at 98.9 �F, with heart rate 68, respiratory rate 20, BP
100/45 and saturating 95% on room air. There was no numbness or weakness of the face or extremities in the ER. Initial labs showed Hb 8.3, urinalysis with trace leukocyte esterase, and initial CT head showed no acute intracranial normality. CTA
head/neck also showed no acute pathology. Neurology was consulted and recommended adding aspirin to Eliquis. Patient was admitted for further management.
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
possible Eliquis failure and recommend changing the patient over to Coumadin (goal INR 2.0-3.0) with heparin bridge. Neurology advised against IV Heparin due to high risk of intracerebral bleeding with subsequent morbidity of permanent disability
and mortality and recommended continuing Eliquis and Aspirin. Echo showed normal left ventricular size, wall thickness and systolic function, intact interatrial septum with no evidence of shunting by agitated saline bubble study. Cardiolipin
antibodies were negative. Speech therapy recommended regular texture diet and thin liquids.
Problem #2:Lymphadenopathy: Mild left cervical, and severe supraclavicular, infraclavicular, left superior mediastinum and prevascular lymphadenopathy were seen on chest CT. Pulmonary, hematology and breast surgery consult recommended lymph node
biopsy by IR. Evening dose of Eliquis was held and single dose of Lovenox was given prior to procedure. Left supraclavicular lymph node biopsy was done under ultrasound guidance (10/19/2023) and 4 sample biopsies were taken, pathology is pending.
Evening dose of Eliquis was resumed after procedure (per neurology consult). Patient already has follow-up appointment with pulmonary service on 10/23/[address] at [address] Moyer - Patient was advised to attend that visit.
Problem #3: Abnormal left breast: Dr. Jacobo (breast surgeon) visited the patient. Patient does not presently have a diagnosis of metastatic breast cancer however breast MRI is warranted. Dr. Jacobo will work on moving up the appointment for
breast MRI.
Problem #4: Anemia: Heme oncology consult recommended repletion of both iron levels and B12 --methylmalonic acid level pending
Patient is in good clinical condition and is stable for discharge to home with visiting nurse. Patient advised to follow-up with pathology results from lymph node biopsy in 1 to 2 weeks.
Discharge Plan
-
Patient Disposition: Home with Home Care
Discharge Diagnosis/Procedures: Speech difficulty with a mild expressive aphasia secondary to embolic infarcts; A-fib on Eliquis; chest lymphadenopathy with pulmonary nodules
Diet: Low Cholesterol and 2 Gram Sodium
Activity: As tolerated
Driving Restrictions: Not until seen by your Dr
Bathing Restrictions: None
Other Services: VN, PT and OT
Referrals:
Yana Moyer MD [Active] - 10/23/23 11:00 am
Tonya Hopkins PA-C [Family Provider] - in less than 1 week
Haim Beverly MD [Active] - in one week (call office to verify about your appointment)
Prescriptions:
New
cyanocobalamin (vitamin B-12) 1,000 mcg Tablet
2,000 mcg PO DAILY Qty: 30 0RF
aspirin 81 mg Tablet,Delayed Release (Dr/Ec)
81 mg PO DAILY Qty: 30 0RF
Continued
paroxetine HCl 20 MG tablet
20 mg PO DAILY
Eliquis 5 MG tablet
5 mg PO BID 0RF
metoprolol succinate 25 MG tablet extended release 24 hr
12.5 mg PO HS
diphenhydramine-acetaminophen [Tylenol PM Extra Strength] 25-500 mg Tablet
1 tab PO HS PRN (Reason: sleep)
Trelegy Ellipta 100-62.5-25 mcg Blister With Device
1 inh INHALATION R DAILY
polyethylene glycol 3350 [Miralax] 17 gram Powder In Packet
8.5 g PO DAILY
acetaminophen [Tylenol Extra Strength] 500 mg Tablet
500 mg PO QIDPRN PRN (Reason: headache)
ferrous sulfate 325 mg (65 mg iron) Tablet
325 mg PO DAILY
atropine 1 % Drops
1 drp LEFT EYE BID
fluticasone propionate 50 mcg/actuation [place],Suspension
1 spray INTRANASAL HS
rosuvastatin 10 mg Tablet
10 mg PO HS
clobetasol 0.05 % Shampoo
1 applic TOPICAL SUWE
Unknown Eye Drops drops
1 drp RIGHT EYE BID
Patient Comments:
10/12/23: patient states she has an eye drop that she uses for her right eye, but does not know the name of it.
diltiazem HCl 240 mg Capsule,Extended Release 24hr
240 mg PO DAILY Qty: 30 0RF
furosemide 20 mg Tablet
20 mg PO DAILY Qty: 30 0RF
Discharge Orders:
Discharge Patient (As Directed); Ordered 10/20/23
Ordered By: Jericho Pritchett
Discharge Date and Time
Discharge Date/Time: 10/20/23 16:53
Print Language: [id number]
[2023-10-20 15:54] VITALS: BP 107/52
[2023-10-21 00:31] LABS: Alpha 1 Globulin 0.58 g/dL (0.19-0.46); Alpha 2 Globulin 1.03 g/dL (0.48-1.05); SPEP IFE Reflex Not Done; Total Protein-Electrophoresis 5.7 g/dL (6.3-8.2)
[2023-10-21 02:55] LABS: Methylmalonic Acid 0.39 umol/L (0.00-0.40)
== END 2023-10-20 16:53 | disposition home health service (06) | DRG 41 ==
LOC: 4 EAST ACU 15:12
PROVIDERS: ADMITTING PHYSICIAN Hospitalist; ATTENDING PHYSICIAN Internal Medicine; CONSULT PHYSICIAN Internal Medicine; CONSULT PHYSICIAN Internal Medicine Critical Care Medicine; CONSULT PHYSICIAN Internal Medicine Hematology & Oncology; CONSULT PHYSICIAN Psychiatry & Neurology Neurology; CONSULT PHYSICIAN Radiology Vascular & Interventional Radiology; CONSULT PHYSICIAN Surgery; EMERGENCY PHYSICIAN Emergency Medicine; FAMILY PHYSICIAN Physician Assistant
PROC: 07B23ZX Excision of Left Neck Lymphatic, Percutaneous Approach, Diagnostic (ICD-10-PCS; 2023-10-19)
DX: I63.40 Cerebral infarction due to embolism of unspecified cerebral artery (principal); C77.0 Secondary and unspecified malignant neoplasm of lymph nodes of head, face and neck; Q85.89 Other phakomatoses, not elsewhere classified; I48.21 Permanent atrial fibrillation; I11.0 Hypertensive heart disease with heart failure; I50.9 Heart failure, unspecified; J44.9 Chronic obstructive pulmonary disease, unspecified; E78.00 Pure hypercholesterolemia, unspecified; F32.A Depression, unspecified; F41.9 Anxiety disorder, unspecified; H54.62 Unqualified visual loss, left eye, normal vision right eye; R47.01 Aphasia; J43.2 Centrilobular emphysema; R29.701 NIHSS score 1; R91.8 Other nonspecific abnormal finding of lung field; C80.1 Malignant (primary) neoplasm, unspecified; D63.0 Anemia in neoplastic disease; Z87.891 Personal history of nicotine dependence; Z79.01 Long term (current) use of anticoagulants; Z79.51 Long term (current) use of inhaled steroids; Z79.899 Other long term (current) drug therapy; Z88.5 Allergy status to narcotic agent; Z88.0 Allergy status to penicillin
CPT/HCPCS: 88305; 38505; 70450; 70496; 70498; 70551; 76942; 80061; 81003; 81015; 83036; 83521; 83615; 83735; 83921; 84155; 84165; 85025; 85027; 85520; 85610; 85613; 85730; 86146; 86147; 86148; 86300; 86618; 88333; 88341; 88342; 92523; 92610; 93005; 93306; 94640; 96374; 97112; 97116; 97162; 97166; 99285; J2916; Q9967

== ENCOUNTER → 2023-11-05 14:45 | Outpatient (REF) | payer MEDICARE, OTHER, SELFPAY ==
[2023-11-05 17:30] LABS: Iron 43 ug/dl (37-170)
[2023-11-05 17:41] LABS: Percent Saturation 14 % (20-50); Total Iron Binding Capacity 294 ug/dl (265-497)
[2023-11-05 18:02] LABS: CEA 219 ng/ml
[2023-11-05 18:03] LABS: Ferritin 95.4 ng/ml (11.1-264.0)
[2023-11-05 18:34] LABS: Folate 5.8 ng/ml (2.76-20); Vitamin B12 648 pg/ml (239-931)
[2023-11-06 09:43] LABS: AFP Male/Tumor Marker 2.76 ng/ml
== END ==
LOC: REG 14:45
PROVIDERS: ATTENDING PHYSICIAN Internal Medicine Hematology & Oncology; FAMILY PHYSICIAN Physician Assistant
DX: R97.0 Elevated carcinoembryonic antigen [CEA] (principal); I48.21 Permanent atrial fibrillation; D52.1 Drug-induced folate deficiency anemia; D50.9 Iron deficiency anemia, unspecified; D64.9 Anemia, unspecified; E53.8 Deficiency of other specified B group vitamins; R97.8 Other abnormal tumor markers
CPT/HCPCS: 36415; 82105; 82378; 82607; 82728; 82746; 83540; 83550

== ENCOUNTER → 2023-11-06 08:33 | Outpatient (REF) | payer MEDICARE, OTHER, SELFPAY | LOC: MRI 08:33 | PROVIDERS: ATTENDING PHYSICIAN Internal Medicine Hematology & Oncology; FAMILY PHYSICIAN Physician Assistant | DX: R91.1 Solitary pulmonary nodule (principal) | CPT/HCPCS: 74183; A9575 ==

== ENCOUNTER → 2023-11-09 15:56 | Outpatient (REF) | payer MEDICARE, OTHER, SELFPAY ==
[2023-11-09 09:26] LABS: % Basophils 0.7 % (0-2); % Eosinophils 1.8 % (0-6); % Immature Granulocytes 0.6 % (0-0.5); % Lymphocytes 14.5 % (20.5-51.1); % Monocytes 12.3 % (1.7-9.3); % Neutrophils 70.1 % (42.2-75.2); Absolute Basophils 0.1 10^3/uL (0-0.2); Absolute Eosinophils 0.2 10^3/uL (0-0.7); Absolute Immature Granulocytes 0.1 10^3/uL (0-0.05); Absolute Lymphocytes 1.2 10^3/uL (1.2-3.4); Absolute Neutrophils 5.7 10^3/uL (1.4-6.5); Hematocrit 20.9 % (37.0-47.0); Hemoglobin 6.4 g/dL (12.0-16.0); Mean Corp Hgb Conc. 30.6 g/dL (33.0-37.0); Mean Corpuscular Hgb 28.4 pg (27.0-31.0); Mean Corpuscular Volume 92.9 fL (81.0-99.0); Mean Platelet Volume 10.4 fL (7.4-10.4); Nucleated Red Blood Cells % 0.2 %; Platelet Count 373 10^3/uL (130-400); Red Blood Cell Count 2.25 10^6/uL (4.20-5.40); Red Cell Dist. Width 19.5 % (11.5-14.5); White Blood Cell Count 8.2 10^3/uL (4.8-10.8)
== END ==
LOC: OIDL 15:56
PROVIDERS: ATTENDING PHYSICIAN Internal Medicine Hematology & Oncology
DX: R91.1 Solitary pulmonary nodule (principal); D50.0 Iron deficiency anemia secondary to blood loss (chronic)
CPT/HCPCS: 85025; 86850; 86900; 86901

== ENCOUNTER 2023-11-09 16:18 | Inpatient (IN) | payer MEDICARE, OTHER, SELFPAY ==
[2023-11-09] VITALS (14 sets, daily range): BP systolic 100–130; BP diastolic 38–96; PULSE 58–65; BMI 27.7
--- NOTE | 2023-11-09 11:56 | ED.GENMED ---
History of Present Illness
General
Chief Complaint: Abnormal Lab Value
Source: patient, records and family (Daughter)
Exam Limitations: none
Time Seen by Provider: 11/09/23 11:37
Nursing documentation reviewed up to this point in time: agreed with
History of Present Illness
History of Present Illness:
83-year-old female with a past medical history of atrial fibrillation on Eliquis, hyperlipidemia, COPD, CVA presents to the emergency room with her daughter for evaluation of fatigue�found to be anemic as an outpatient patient was notably just
admitted to this hospital 10/16/2023 until 10/20/2023 for acute CVA. Prior to that she was admitted 10/12/2023 until 10/14/2023 for A-fib with RVR and CHF. She has been maintained on Eliquis as well as aspirin after these hospitalizations. She has also
been in process of workup for malignancy in part due to chronic anemia in part due to a left breast mass. She has been following with Dr. Estes for oncology/hematology. Since discharge from the hospital patient reports that she has had progressive
fatigue�today to the point that she could not even stand up on her own. She had outpatient lab work done today which showed a hemoglobin of 6.4 which is decreased from her discharge value of 8.3 on 10/15/2023. Aside from fatigue she reports that she
has had some shortness of breath. She denies any chest pain. She denies any fevers or chills or coughing. She has had black stools but she says that she has been taking iron supplementation and attributed it to that. She denies any other
complaints.
Past History
Past History
ED Past Medical History: Arrthythmia (Atrial fibrillation), COPD, HTN, Hypercholesterolemia and Other (DJD the, psoriasis,: Polyps, diverticulosis, irritable bowel syndrome)
ED Past Surgical History: Orthopedic (repair right Tib/Fib fracture, L and R meniscus tear, Left heel spur removed) and Other (Lung biopsy)
Social History
Tobacco: Former smoker
Alcohol: Daily (2 glasses wine)
Personal:
Living: alone
Employment: Retired
Family History
Family History: Other (Noncontributory)
Review of Systems
Review of Systems
All Other Systems: ROS reviewed and negative except as documented in HPI and ROS
Constitutional: Reports fatigue; Denies fever
Respiratory: Reports trouble breathing; Denies cough
Cardiac: Denies chest pain or palpitations
ABD/GI: Denies abdominal pain, nausea or vomiting
: Denies flank pain
Musculoskeletal: Denies neck pain or back pain
Neurological: Denies dizzy or headache
Phy Exam
Physical Exam
Physical Exam:
General: Awake, alert, oriented x3; no acute distress
Head: Normocephalic, atraumatic
Eyes: Conjunctiva pale, EOMI
Throat: Airway intact, handling secretions
Neck: Trachea midline, supple without meningismus
Lungs: Clear to auscultation bilaterally, no wheezing, rales, rhonchi
Heart: Regular rate and rhythm, no murmurs, gallops, or rubs
Abd: Soft, non distended, nontender
Rectal: External hemorrhoid, no internal masses appreciated, black stool Hemoccult positive
Neuro: No gross deficits
Skin: Pale
Extremities: Warm well-perfused, trace lower extremity edema
Scores
Heart Failure Risk
Heart Failure Risk Score: Not Applicable
Heart Score for Chest Pain Patients
STEMI patient?: Not applicable
Withdrawal Assessment of Alcohol
Withdrawal Assessment Completed?: Not applicable
Course
Orders/Labs/Results
Orders:
Orders
11/09/23 11:40
Complete Blood Count/With Diff Urgent
Comprehensive Metabolic Panel Urgent
11/09/23 11:54
* Blood Bank Products Urgent
Blood Bank Products: *Packed RBC Leuko(PRBC's)
Quantity: 2
Transfuse Today: Yes
Reason: Anemia
Pantoprazole [Protonix IV] 80 mg IV NOW STA
11/09/23 12:00
Pantoprazole 80 mg/100 ml Nss [Protonix] 80 mg in 100 ml IV Q10H
Vital Signs
Initial and Last Documented VS:
Initial Vital Signs
Temp Pulse Resp BP Pulse Ox
36.5 C 62 20 107/38 96
11/09/23 10:55 11/09/23 10:55 11/09/23 10:55 11/09/23 10:55 11/09/23 10:55
Last Documented Vital Signs
Temp Pulse Resp BP Pulse Ox
36.5 C 62 16 107/38 96
11/09/23 10:55 11/09/23 10:55 11/09/23 11:46 11/09/23 10:55 11/09/23 10:55
MDM/Problems Addressed
Differential Diagnosis Includes:
Symptomatic anemia�anemia of chronic disease, acute blood loss anemia, iron deficiency anemia, hemolytic anemia somewhat less likely
MDM/Problems Addressed:
83-year-old female presents for evaluation of fatigue and shortness of breath over the past 2 weeks since recent hospitalization; she has been having black stools but attributed this to iron supplementation. Found to have anemia of 6.4 today which
is a 2 point drop in the past 2 weeks. She has some mild diastolic hypotension with a blood pressure of 107/38. Heart rate is in the 60s. Physical exam as above�notably black stool which was Hemoccult positive. She is on Eliquis for atrial
fibrillation as well as aspirin with recent stroke. Will plan to place an IV send CBC and a CMP, type and screen. Check an EKG. Will transfuse 2 units of PRBCs. IV Protonix bolus and infusion. Will hold on reversal of anticoagulant for now
suspect that this is likely a subacute drop; low threshold for reversal if heavy bleeding on stable vitals. Will hold Eliquis for the time being which is unfortunate given recent admission for multiple strokes on MRI--certainly at least for now
with concern for continued bleeding and acute on chronic blood loss anemia risk-benefit is in favor of holding anticoagulant in my judgment. Will plan for admission for observation and serial hemoglobins pending initial labs.
Chronic conditions affecting care:
Atrial fibrillation, CVA�anticoagulation complicates acute GI bleeding
*Pulse Oximetry
Patient hypoxic: no
*Critical Care Note
Total Time (30-74mins, 75-104mins- exclusive of procedures): Not Applicable
Data Reviewed
Review of Other/Old Records Reveals: Labs, Records and Discharge Summary
Source: patient, records and family
Prescriptions/Medications Considered But Not Given:
Considered Kcentra for anticoagulant reversal as above
Patient Management
Discussion with other providers: Hospitalist (Discussed with hospitalist)
Escalation/DeEscalation of care consider admission/obs:
Admission indicated
ED Attending Note
-
Portions of this chart may have been created with voice recognition software.� Occasional wrong word or��sound alike� substitutions may have occurred due to the inherent limitations of voice recognition software.
Discharge Plan
Departure
Admit to doctor: Pilar
Presentation/result/management discussed w/ accepting MD/DO: Hospitalist
Discharge Problem:
Upper gastrointestinal bleeding, Acute on chronic blood loss anemia
Prescriptions:
No Action
paroxetine HCl 20 MG tablet
20 mg PO DAILY
Eliquis 5 MG tablet
5 mg PO BID 0RF
metoprolol succinate 25 MG tablet extended release 24 hr
12.5 mg PO HS
diphenhydramine-acetaminophen [Tylenol PM Extra Strength] 25-500 mg Tablet
1 tab PO HS PRN (Reason: sleep)
Trelegy Ellipta 100-62.5-25 mcg Blister With Device
1 inh INHALATION R DAILY
polyethylene glycol 3350 [Miralax] 17 gram Powder In Packet
8.5 g PO DAILY
acetaminophen [Tylenol Extra Strength] 500 mg Tablet
500 mg PO QIDPRN PRN (Reason: headache)
ferrous sulfate 325 mg (65 mg iron) Tablet
325 mg PO DAILY
atropine 1 % Drops
1 drp LEFT EYE BID
fluticasone propionate 50 mcg/actuation [place],Suspension
1 spray INTRANASAL HS
rosuvastatin 10 mg Tablet
10 mg PO HS
clobetasol 0.05 % Shampoo
1 applic TOPICAL SUWE
Unknown Eye Drops drops
1 drp RIGHT EYE BID
Patient Comments:
10/12/23: patient states she has an eye drop that she uses for her right eye, but does not know the name of it.
diltiazem HCl 240 mg Capsule,Extended Release 24hr
240 mg PO DAILY Qty: 30 0RF
furosemide 20 mg Tablet
20 mg PO DAILY Qty: 30 0RF
cyanocobalamin (vitamin B-12) 1,000 mcg Tablet
2,000 mcg PO DAILY Qty: 30 0RF
aspirin 81 mg Tablet,Delayed Release (Dr/Ec)
81 mg PO DAILY Qty: 30 0RF
Interventions
Interventions:
*Risk Screen - Suicide Last Done: 11/09/23 10:55
*General Assessment Last Done: 11/09/23 10:55
*Neglect/Abuse Screening Last Done: 11/09/23 10:55
*ED COVID-19 Vaccine History Last Done: 11/09/23 11:43
Discharge Date and Time
Print Language: [place]
[2023-11-09] MEDS: PROTONIX 100 IV (12:09)
[2023-11-09] MEDS: PROTONIX IV 80 MG IV (12:09)
[2023-11-09 12:15] LABS: % Basophils 0.7 % (0-2); % Immature Granulocytes 0.7 % (0-0.5); % Lymphocytes 17.1 % (20.5-51.1); % Monocytes 11.6 % (1.7-9.3); % Neutrophils 68.9 % (42.2-75.2); Absolute Basophils 0.1 10^3/uL (0-0.2); Absolute Eosinophils 0.1 10^3/uL (0-0.7); Absolute Immature Granulocytes 0.1 10^3/uL (0-0.05); Absolute Lymphocytes 1.6 10^3/uL (1.2-3.4); Absolute Monocytes 1.1 10^3/uL (0.1-0.6); Absolute Neutrophils 6.3 10^3/uL (1.4-6.5); Hematocrit 20.7 % (37.0-47.0); Hemoglobin 6.3 g/dL (12.0-16.0); Mean Corp Hgb Conc. 30.4 g/dL (33.0-37.0); Mean Corpuscular Hgb 28.1 pg (27.0-31.0); Mean Corpuscular Volume 92.4 fL (81.0-99.0); Nucleated Red Blood Cells % 0.2 %; Platelet Count 376 10^3/uL (130-400); Red Blood Cell Count 2.24 10^6/uL (4.20-5.40); Red Cell Dist. Width 19.4 % (11.5-14.5); White Blood Cell Count 9.1 10^3/uL (4.8-10.8)
[2023-11-09 12:22] LABS: ALT (SGPT) 11 U/L (0-35); AST (SGOT) 15 U/L (14-36); Albumin 3.5 g/dl (3.5-5.0); Alkaline Phosphatase 106 U/L (38-126); Blood Urea Nitrogen 12 mg/dl (7-17); Calcium 8.8 mg/dl (8.4-10.2); Carbon Dioxide 27 mmol/L (22-30); Chloride 100 mmol/L (98-107); Glucose 118 mg/dl (70-99); Potassium 3.6 mmol/L (3.5-5.1); Sodium 136 mmol/L (135-145); Total Bilirubin 0.9 mg/dl (0.2-1.3); Total Protein 6.1 g/dl (6.3-8.2); eGFR > 60.00
[2023-11-09] MEDS: TYLENOL 1000 MG PO (13:48)
--- NOTE | 2023-11-09 16:35 | HPS.HSE ---
Family Physician
-
Family Physician: Tonya Hopkins
Chief Complaint
-
fatigue, outpatient lab hgb <7
History of Present Illness
83 female history of persistent atrial fibrillation on Eliquis, COPD, hypertension, hyperlipidemia, IBS who is presenting for 1 week worth of fatigue from outpatient infusion center after having labs drawn prior to IV transfusion found to have
hemoglobin less than 7. In the ED Hemoccult positive. Initial blood pressure is on the lower and started to improve once I saw her with MAP's more consistently in the 65 region. Denies melanotic stools bright red blood per rectum vaginal bleeding
hematuria hemoptysis hematemesis. No abdominal pain. Admits to 50 pound weight loss in 3 years both intentional and unintentional.
In the ED hemodynamically stable. Hemoglobin 6.3. BUN/creatinine ratio less than 12
Family history daughter at the age of 57 diagnosed with colon cancer 2 years ago. Mother has a history of cirrhosis father has a history of CAD and CVA.
Social history former smoker quit 99, former alcohol drinker, no drug use history.
Surgical history orthopedic tib-fib fracture repair, left and right meniscal tear repair, left heel spur removed.
NAD, resting comfortably in bed
Scleral anicteric, left eye complete corneal,
Moist mucous membranes
No JVD
CTA bilateral
Normal S1-S2 no murmurs
Soft nontender nondistended bowel sounds active
No peripheral pitting edema
Moves extremities spontaneously
AAOx3
GI bleed
Differential diagnosis which is broad cannot exclude diverticular, AVM/dysplastic, hemorrhoidal, neoplastic. Unlikely upper GI as BUN/creatinine ratio less than 30. Unlikely peptic ulcer. There is evidence on MRI abdomen that shows mild hepatic
cirrhosis with passive hepatic venous congestion and severely distended hepatic veins and IVC with periportal edema in the liver. Therefore cannot exclude rectal varices. Unlikely esophageal varices as cause of this as there is no evidence of
hematemesis that she has reported or coffee-ground emesis that she has reported.
-2 large-bore IVs
-IV fluids
-CLD
-Transfuse hemoglobin greater than 7
-2 units PRBC ordered by ED
-Obtain posttransfusion labs 3 hours after
-If blood pressure allows would give 20 mg of IV Lasix between
-If becomes hemodynamically unstable obtain a CT GI bleed study repeat stat CBC
-Consult GI for potential C-scope likely will happen on Sunday
- -If no plans for bidirectional scope on this admission then can likely be discharged home with outpatient follow-up with GI however GI would have to make this decision
Cirrhosis mild hepatic
-Outpatient hepatology follow-up
-Will need variceal screening therefore outpatient GI follow-up for EGD
-At this time no indication for octreotide or beta-jasen needs
Atrial fibrillation
-Continue Cardizem and metoprolol with holding parameters.
-Would consider transitioning metoprolol to Coreg if determined esophageal varices is the cause of this bleed
-Hold Eliquis and aspirin
CVA
-Hold Eliquis aspirin
-Continue statin
COPD
-Without active wheezing on exam
-On Trelegy as outpatient
-Start Spiriva and Symbicort
DVT prophylaxis
-SCDs
Medical History
Past Medical History
Past Medical History: Reports COPD and CVA
Past Surgical History: Reports None
Social History
Tobacco: Former Smoker
Family History
Family History: CAD
Allergies / Home Medications
Allergies reflects when Allergies were last updated in [employer].
Home Medications with original date entered in [employer]
Allergy/Medication List:
Allergies
Allergy/AdvReac Type Severity Reaction Status Date / Time
amoxicillin Allergy THRUSH Verified 11/09/23 11:01
morphine [Morphine] Allergy tremors, Verified 11/09/23 11:01
nausea ,
'Twitching',
tremors
Home Medications
paroxetine HCl 20 mg tablet 20 mg PO DAILY Depression 09/15/08
apixaban 5 mg tablet (Eliquis) 5 mg PO BID 10/13/17
metoprolol succinate 25 mg tablet,extended release 24 hr 12.5 mg PO HS Blood pressure 06/18/20
atropine 1 % eye drops 1 drp LEFT EYE DAILY Eye Condition 10/12/23
clobetasol 0.05 % shampoo 1 applic topical SUWE Skin Issues 10/12/23
diphenhydramine 25 mg-acetaminophen 500 mg tablet (Tylenol PM Extra Strength) 1 tab PO HS sleep 10/12/23
ferrous sulfate 325 mg (65 mg iron) tablet 325 mg PO DAILY Supplement 10/12/23
fluticasone fur. 100 mcg-umeclid 62.5 mcg-vilant 25 mcg inhalat.powder (Trelegy Ellipta) 1 inh inhalation R DAILY Lung/Breathing Issues 10/12/23
fluticasone propionate 50 mcg/actuation nasal spray,suspension 1 spray intranasal HS Congestion 10/12/23
rosuvastatin 10 mg tablet 10 mg PO HS High Cholesterol 10/12/23
diltiazem HCl 240 mg capsule,extended release 24 hr 240 mg PO DAILY #30 caps 10/14/23
furosemide 20 mg tablet 20 mg PO DAILY #30 tabs 10/14/23
aspirin 81 mg tablet,delayed release 81 mg PO DAILY #30 tabs 10/20/23
cyanocobalamin (vitamin B-12) 1,000 mcg tablet 2,000 mcg (2 x 1,000 mcg) PO DAILY #30 tabs 10/20/23
Review of Systems
-
A 12 point ROS was completed and negative except as noted: Yes
Physical Exam
Vital Signs
Vital Signs
Temp Pulse Resp BP Pulse Ox
97.9 F 57 16 112/54 95
11/09/23 13:58 11/09/23 16:00 11/09/23 16:04 11/09/23 16:00 11/09/23 16:04
Physical Exam
General: Well Developed
Laboratory Results
-
11/09/23 11:57
11/09/23 11:57
Laboratory Results
Total Bilirubin 0.9 mg/dl (0.2-1.3) 11/09/23 11:57
AST 15 U/L (14-36) 11/09/23 11:57
ALT 11 U/L (0-35) 11/09/23 11:57
Alkaline Phosphatase 106 U/L (38-126) 11/09/23 11:57
Impression/Plan
-
.
--- NOTE | 2023-11-09 16:39 | CON.GI ---
Consultation
-
Date/Time Consultation Requested: 11/09/23 3:42pm
Date/Time Consultation Performed: 11/09/23 4:39pm
Requesting Provider: Cordell Israel
Performing Provider: Aubrey Davidson
Reason for Consultation: Heme positive anemia
Medical History
Chief Complaint / HPI
Chief Complaint: Heme positive anemia
History of Present Illness:
Patient is an 83-year-old female who has recently been admitted to the hospital several times in October. She was admitted October 11 to October 13 for A-fib with rapid ventricular rate. She returned to the hospital several days later for embolic stroke and
was admitted from October 15 to October 19. These strokes happened while she was on Eliquis. Aspirin was added. Her workup included CAT scan of the chest that showed prominent mediastinal adenopathy and supraclavicular lymph node that was eventually
biopsied and came back as metastatic carcinoma. Initial pathology was suggestive of a liver source but further staining was negative for AFP. 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 Following
discharge she has complained of fatigue. She returned to the ER where hemoglobin was found to be 6.4, down from her hemoglobin on October 14 of .3. MCV has been normal. Iron studies during her prior admission showed a low iron, low TIBC, and low
saturation with normal ferritin suggestive of anemia of chronic disease. B12 was low at 279. She was started on iron repletion and her stools have been black. As a result she started MiraLAX to help with the constipation. She has had multiple
colonoscopies in the past, most recently in 2016 that found 3 small hyperplastic polyps. Her lab work has also been notable for a CEA markedly elevated at 219 and CA 15-3 elevated at 120. She had a PET scan earlier this week. She is scheduled to
have a breast MRI to evaluate her left breast which has become more swollen recently. MRI abdomen 11/05 showed mild hepatic cirrhosis without evidence for HCC, asymmetric enhancing edema and skin thickening L breast. Stool in the ER was heme
positive black. Her last dose of Eliquis was this morning November 08.
Past Medical History
Past Medical History: COPD and HTN
Past Surgical History: Orthopedic (B/L TKR) and Other (L eye traumatic injury)
Social History
Tobacco: Former Smoker
Alcohol: Occasional
Family History
Family History: Cancer (Daughter - CRC age 57)
Allergies / Home Medications
Allergy/AdvReac Type Severity Reaction Status Date / Time
amoxicillin Allergy THRUSH Verified 11/09/23 11:01
morphine [Morphine] Allergy tremors, Verified 11/09/23 11:01
nausea ,
'Twitching',
tremors
�Medication �Instructions �Recorded
paroxetine HCl 20 mg tablet 20 mg PO DAILY Depression 09/15/08
apixaban 5 mg tablet (Eliquis) 5 mg PO BID 10/13/17
metoprolol succinate 25 mg 12.5 mg PO HS Blood pressure 06/18/20
tablet,extended release 24 hr
atropine 1 % eye drops 1 drp LEFT EYE DAILY Eye Condition 10/12/23
clobetasol 0.05 % shampoo 1 applic topical SUWE Skin Issues 10/12/23
diphenhydramine 25 1 tab PO HS sleep 10/12/23
mg-acetaminophen 500 mg tablet
(Tylenol PM Extra Strength)
ferrous sulfate 325 mg (65 mg 325 mg PO DAILY Supplement 10/12/23
iron) tablet
fluticasone fur. 100 mcg-umeclid 1 inh inhalation R DAILY 10/12/23
62.5 mcg-vilant 25 mcg Lung/Breathing Issues
inhalat.powder (Trelegy Ellipta)
fluticasone propionate 50 1 spray intranasal HS Congestion 10/12/23
mcg/actuation nasal
spray,suspension
rosuvastatin 10 mg tablet 10 mg PO HS High Cholesterol 10/12/23
diltiazem HCl 240 mg 240 mg PO DAILY #30 caps 10/14/23
capsule,extended release 24 hr
furosemide 20 mg tablet 20 mg PO DAILY #30 tabs 10/14/23
aspirin 81 mg tablet,delayed 81 mg PO DAILY #30 tabs 10/20/23
release
cyanocobalamin (vitamin B-12) 2,000 mcg (2 x 1,000 mcg) PO DAILY 10/20/23
1,000 mcg tablet #30 tabs
Review of Systems
-
All other systems: A 12 pt ROS was Negative except as stated above in HPI
Vital Signs
Temp Pulse Resp BP Pulse Ox
97.9 F 57 16 112/54 95
11/09/23 13:58 11/09/23 16:00 11/09/23 16:04 11/09/23 16:00 11/09/23 16:04
Physical Exam
Exam
General: No Apparent Distress
HEENT: Other (L eye enucleation)
Respiratory: Non Labored Respirations
GI: Soft, Non Tender and Non Distended
Skin: Warm and Dry
Results
WBC 9.1 10^3/uL (4.8-10.8) 11/09/23 11:57
Hgb 6.3 g/dL (12.0-16.0) L* 11/09/23 11:57
Hct 20.7 % (37.0-47.0) L* 11/09/23 11:57
MCV 92.4 fL (81.0-99.0) 11/09/23 11:57
Plt Count 376 10^3/uL (130-400) 11/09/23 11:57
Absolute Neuts (auto) 6.3 10^3/uL (1.4-6.5) 11/09/23 11:57
Sodium 136 mmol/L (135-145) 11/09/23 11:57
Potassium 3.6 mmol/L (3.5-5.1) 11/09/23 11:57
Chloride 100 mmol/L (98-107) 11/09/23 11:57
Carbon Dioxide 27 mmol/L (22-30) 11/09/23 11:57
BUN 12 mg/dl (7-17) 11/09/23 11:57
Creatinine 0.7 mg/dL (0.6-1.0) 11/09/23 11:57
Calcium 8.8 mg/dl (8.4-10.2) 11/09/23 11:57
Total Bilirubin 0.9 mg/dl (0.2-1.3) 11/09/23 11:57
AST 15 U/L (14-36) 11/09/23 11:57
ALT 11 U/L (0-35) 11/09/23 11:57
Alkaline Phosphatase 106 U/L (38-126) 11/09/23 11:57
Diagnostic Image Results:
Prior GI Procedures:
EGD:
Colonoscopy:
Assessment / Plan
-
Summary: 83yo female admitted with fatigue, SOB and Hgb 6.4 (down from 8.3 on 7.8) Heme positive black stool on oral iron. She was admitted earlier this month for Afib/RVR and returned a day after d/c for acute embolic CVA while on Eliquis. CT
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 CEA 219. Had MRI 11/05-
mild hepatic cirrhosis without evidence HCC, severe asymmetric enhancing edema and skin thickening L breast. She is seeing Dr Jacobo and set up to have breast MRI. Had PET scan last week and sees Dr Estes. Has had colonoscopies in 2016, 2011,
2007, 2002-- only small polyps found, mostly hyperplastic. No prior EGD. Denies NSAIDs. Daughter dx'd CRC age 57 last year. Has lost weight over last 3 years since , more loss recently.
Impression:
Heme positive anemia. Hgb 6.4. B12 279. Fe/TIBC/sat all low with normal ferritin 47 (AOCD)
Recent L supraclavicular LN positive metastatic carcinoma, unknown primary
Afib on Eliquis, last dose 8/2 am
Recent embolic CVA
FH CRC- daughter age 57
L breast swelling
Elevated CEA 219
Recommendations:
Hold Eliquis
Plan EGD/colonoscopy on Sunday for eval of anemia and carcinoma of unknown primary
CEA was very high so CRC is a possibility
Follow up with Dr Jacobo for L breast swelling, breast MRI to r/o metastatic breast CA
Follow up with Dr Estes for ongoing malignancy work up
-
-
Thank you for consultation and allowing me to participate in the patient's care. Please call the counter person GI physician during the after hours with any questions or concerns.
--- NOTE | 2023-11-09 18:16 | CON.CAR ---
Consultation
Consultation Request
Date/Time Consultation Requested: 11/09/2023
Date/Time Consultation Performed: 11/09/2023
Requesting Provider: Dr. Israel
Performing Provider: Dr. Rosenberg
Reason for Consultation: Severe anemia
Medical History
-
Chief Complaint: Severe anemia
History of Present Illness:
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
with a hemoglobin of 6.3. The patient states that over the past week she has been short of breath and weak. She denies chest pain or palpitations. The patient has had dark stools at home, but thought it was secondary to her iron pills.
Past Medical History
Past Medical History: Arrhythmias (A-fib), COPD, CVA, HTN and Hypercholesterolemia
Past Surgical History: Orthopedic (Right hip/fib fracture repair, meniscus surgery, lung biopsy)
Social History
Tobacco: Former Smoker (Quit )
Alcohol: None
Drug: None
Family History
Family History: Reviewed & Not Pertinent
Allergies / Home Medications
Allergy/AdvReac Type Severity Reaction Status Date / Time
amoxicillin Allergy THRUSH Verified 11/09/23 11:01
morphine [Morphine] Allergy tremors, Verified 11/09/23 11:01
nausea ,
'Twitching',
tremors
�Medication �Instructions �Recorded �Confirmed �Type
paroxetine HCl 20 mg tablet 20 mg PO DAILY Depression 09/15/08 11/09/23 History
apixaban 5 mg tablet (Eliquis) 5 mg PO BID 10/13/17 11/09/23 Rx
metoprolol succinate 25 mg 12.5 mg PO HS Blood pressure 06/18/20 11/09/23 History
tablet,extended release 24 hr
atropine 1 % eye drops 1 drp LEFT EYE DAILY Eye Condition 10/12/23 11/09/23 History
clobetasol 0.05 % shampoo 1 applic topical SUWE Skin Issues 10/12/23 11/09/23 History
diphenhydramine 25 1 tab PO HS sleep 10/12/23 11/09/23 History
mg-acetaminophen 500 mg tablet
(Tylenol PM Extra Strength)
ferrous sulfate 325 mg (65 mg 325 mg PO DAILY Supplement 10/12/23 11/09/23 History
iron) tablet
fluticasone fur. 100 mcg-umeclid 1 inh inhalation R DAILY 10/12/23 11/09/23 History
62.5 mcg-vilant 25 mcg Lung/Breathing Issues
inhalat.powder (Trelegy Ellipta)
fluticasone propionate 50 1 spray intranasal HS Congestion 10/12/23 11/09/23 History
mcg/actuation nasal
spray,suspension
rosuvastatin 10 mg tablet 10 mg PO HS High Cholesterol 10/12/23 11/09/23 History
diltiazem HCl 240 mg 240 mg PO DAILY #30 caps 10/14/23 11/09/23 Rx
capsule,extended release 24 hr
furosemide 20 mg tablet 20 mg PO DAILY #30 tabs 10/14/23 11/09/23 Rx
aspirin 81 mg tablet,delayed 81 mg PO DAILY #30 tabs 10/20/23 11/09/23 Rx
release
cyanocobalamin (vitamin B-12) 2,000 mcg (2 x 1,000 mcg) PO DAILY 10/20/23 11/09/23 Rx
1,000 mcg tablet #30 tabs
Review of Systems
-
All other systems: Negative unless noted
Physical Exam
Vital Signs
Temp Pulse Resp BP Pulse Ox
98 F 57 16 119/80 94
11/09/23 17:20 11/09/23 17:20 11/09/23 17:20 11/09/23 17:20 11/09/23 17:20
Lab Results
11/09/23 11:57
11/09/23 11:57
Physical Exam
General: No Apparent Distress and Comfortable
HEENT: Normocephalic
Respiratory: Clear
Cardiac: S1/S2 and Irregular Rhythm
Breast: Deferred by me
GI: Soft
Rectal: Deferred by Provider
Musculoskeletal: No Clubbing, No Cyanosis and No Edema
Skin: Warm and Dry
Neuro: AO x 3
Psych: Calm
Impression / Plan
-
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
with a hemoglobin of 6.3. The patient states that over the past week she has been short of breath and weak. The patient has had dark stools at home, but thought it was secondary to her iron pills.
Severe anemia (hemoglobin 6.3):
-Must hold Eliquis.
-GI evaluation.
-Currently receiving blood transfusion.
Permanent A-fib:
-Will hold Eliquis as above.
-Continue home doses of rate-controlling medications (Cardizem CD and metoprolol succinate).
Hypertension:
-Continue home medications for now.
Hyperlipidemia:
-Continue statin
Data Reviewed
-
EKG: Report Reviewed by me (Atrial fibrillation)
Medical Tests (Nuc Med, Echo etc): Report Reviewed by me (Transthoracic echocardiogram 10/17/2023: LVEF 55%, no significant valve abnormalities.)
Labs: Labs Reviewed by me and Discussed with Patient
[2023-11-09] MEDS: LASIX 20 MG IV (20:31)
[2023-11-09] MEDS: D5/0.45%NACL 1000 IV (21:51)
[2023-11-09] MEDS: TOPROL XL 12.5 MG PO (23:04)
[2023-11-09] MEDS: CRESTOR 10 MG PO (23:04)
[2023-11-09 23:37] LABS: Hematocrit 24.7 % (37.0-47.0); Hemoglobin 8.3 g/dL (12.0-16.0)
[2023-11-10 00:06] VITALS: BP 110/45; BP 125/44; BP 129/45; PULSE 71; PULSE 72; PULSE 75
[2023-11-10] MEDS: SYMBICORT 80/4.5 MCG INHALER INH (02:24)
[2023-11-10 04:20] VITALS: BP 115/50; BP 121/45; BP 127/51; PULSE 85; PULSE 89
[2023-11-10 06:00] VITALS: BMI 27.3
[2023-11-10 07:00] VITALS: BP 127/56
[2023-11-10] MEDS: CARDIZEM CD 240 MG PO (07:46)
[2023-11-10] MEDS: PAXIL 20 MG PO (07:46)
[2023-11-10] MEDS: VITAMIN B-12 2000 MCG PO (07:46)
[2023-11-10] MEDS: FEOSOL 325 MG PO (07:46)
[2023-11-10] MEDS: ATROPINE SULFATE 1% DROPS 1 DROP LEFT EYE (07:46)
[2023-11-10] MEDS: SYMBICORT 80/4.5 MCG INHALER 2 PUFF INH ×2 (08:26→20:02)
[2023-11-10] MEDS: SPIRIVA RESPIMAT 2.5 MCG 2 PUFF INH (08:26)
[2023-11-10 09:05] LABS: INR 1.66; PT 19.4 Sec (11.4-14.6)
[2023-11-10 09:37] LABS: Blood Urea Nitrogen 12 mg/dl (7-17); Calcium 8.4 mg/dl (8.4-10.2); Carbon Dioxide 28 mmol/L (22-30); Chloride 101 mmol/L (98-107); Estimated Creatinine Clearance 65 ml/min; Glucose 100 mg/dl (70-99); Potassium 3.5 mmol/L (3.5-5.1); Sodium 136 mmol/L (135-145); eGFR > 60.00
[2023-11-10 09:41] LABS: Hemoglobin 8.3 g/dL (12.0-16.0); Mean Corp Hgb Conc. 31.9 g/dL (33.0-37.0); Mean Corpuscular Volume 90.9 fL (81.0-99.0); Mean Platelet Volume 10.3 fL (7.4-10.4); Platelet Count 313 10^3/uL (130-400); Red Blood Cell Count 2.86 10^6/uL (4.20-5.40); Red Cell Dist. Width 19.3 % (11.5-14.5); White Blood Cell Count 9.8 10^3/uL (4.8-10.8)
--- NOTE | 2023-11-10 10:04 | W.PN.GI.CBS2 ---
Addendum entered and electronically signed by Garry Cueto MD 11/10/23 13:44:
I saw and examined the patient.
The [employer]ING EQU[employer]MENT [employer]CH[employer]IC or PA's note was reviewed and I agree with the note.
Comment: 83-year-old female complicated medical history as below presenting with fatigue, shortness of breath and anemia. I discussion with the patient, this does not seem like an acute GI bleed as she has been having black stools earlier in the
month. If anything, the last 2 days she has not had a bowel movement. She has been undergoing workup for malignancy of unclear etiology with our oncology group. 2 weeks ago, she was admitted with a stroke which was thought to be likely due to
tumor emboli in the setting of Eliquis. Due to the fact that she had a recent stroke 2 weeks ago, I discussed with hospitalist, third hand, anesthesiologist and plan to do endoscopy and colonoscopy tomorrow. Risks including but not limited to
bleeding, infection, perforation were reviewed with the patient. I also discussed with hospitalist about consulting oncology since they have been follow-up with her closely outpatient. We do not have records of her recent PET scan. Further
recommendations pending endoscopy and colonoscopy.
Original Note:
Today's Communication / Plan
-
plan for EGD/colon 11/10 or 11/11 Dr. Cueto to review with anesthesia and GI staff
hbg improved to 8.3 cont to trend
Hold Eliquis last dose 8/2 AM
cont clear diet
add PPI daily
Pet not review was complete per patient in [place]
CEA was very high so CRC is a possibility
Follow up with Dr Jacobo for L breast swelling, breast MRI to r/o metastatic breast CA
Follow up with Dr Estes for ongoing malignancy work up
hepatitis pending with concern for underlying cirrhosis
Assessment / Plan
-
Summary: 83yo female admitted with fatigue, SOB and Hgb 6.4 (down from 8.3 on 7.8) Heme positive black stool on oral iron. She was admitted earlier this month for Afib/RVR and returned a day after d/c for acute embolic CVA while on Eliquis. CT
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 CEA 219. Had MRI 11/05-
mild hepatic cirrhosis without evidence HCC, severe asymmetric enhancing edema and skin thickening L breast. She is seeing Dr Jacobo and set up to have breast MRI. Had PET scan last week and sees Dr Estes. Has had colonoscopies in 2015, 2011,
2007, 2002-- only small polyps found, mostly hyperplastic. No prior EGD. Denies NSAIDs. Daughter dx'd CRC age 57 last year. Has lost weight over last 3 years since , more loss recently.
Impression:
Heme positive anemia. Hgb 6.4. B12 279. Fe/TIBC/sat all low with normal ferritin 47 (AOCD)
Recent L supraclavicular LN positive metastatic carcinoma, unknown primary
Afib on Eliquis, last dose 8/2 am
cirrhosis per recent MRI without HCC
Recent embolic CVA with speech difficulty
FH CRC- daughter age 57
L breast swelling
Elevated CEA 219
Recommendations:
plan for EGD/colon 11/10 or 11/11 Dr. Cueto to review with anesthesia and GI staff
hbg improved to 8.3 cont to trend
Hold Eliquis last dose 8/2 AM
cont clear diet
add PPI daily
Pet not review was complete per patient in [place]
CEA was very high so CRC is a possibility
Follow up with Dr Jacobo for L breast swelling, breast MRI to r/o metastatic breast CA
Follow up with Dr Estes for ongoing malignancy work up
hepatitis pending with concern for underlying cirrhosis
Subjective
Subjective
Date of Service: November 10, 2023
clear diet no stools overnight admits to some recent small frequent stools but none c/o fatique
Objective
Data Reviewed
Laboratory Data:
Laboratory Results
11/10/23 07:16
11/10/23 07:16
Laboratory Results
PT 19.4 Sec (11.4-14.6) H 11/10/23 07:16
INR 1.66 11/10/23 07:16
Total Bilirubin 0.9 mg/dl (0.2-1.3) 11/09/23 11:57
AST 15 U/L (14-36) 11/09/23 11:57
ALT 11 U/L (0-35) 11/09/23 11:57
Alkaline Phosphatase 106 U/L (38-126) 11/09/23 11:57
Vital Signs and I&O:
Vital Signs
Temp Pulse Resp BP Pulse Ox
98.3 F 78 18 127/56 92
11/10/23 07:00 11/10/23 08:33 11/10/23 08:33 11/10/23 07:46 11/10/23 09:27
I&O
11/09/23 11/10/23 11/11/23
06:59 06:59 06:59
Intake Total 980 / 980
Balance 980 / 980
Physical Exam
Physical Exam
HEENT: Anicteric, Moist mucous membranes and Other (hx eye injury )
Cardiology: Normal Sinus Rhythm
Pulmonary: Clear
GI: Soft and Distended (minimal with some mid abdominal fullness )
Extremities: No Edema
Neuro: Non Focal
--- NOTE | 2023-11-10 10:06 | W.PN.HOSP.TC ---
Today's Communication/Plan
-
.
Assessment / Plan
Assessment / Plan
NAD, resting comfortably in bed
Scleral anicteric, left eye complete corneal,
Moist mucous membranes
No JVD
CTA bilateral
Normal S1-S2 no murmurs
Soft nontender nondistended bowel sounds active
No peripheral pitting edema
Moves extremities spontaneously
AAOx3
GI bleed
Differential diagnosis which is broad cannot exclude diverticular, AVM/dysplastic, hemorrhoidal, neoplastic. Unlikely upper GI as BUN/creatinine ratio less than 30. Unlikely peptic ulcer. There is evidence on MRI abdomen that shows mild hepatic
cirrhosis with passive hepatic venous congestion and severely distended hepatic veins and IVC with periportal edema in the liver. Therefore cannot exclude rectal varices. Unlikely esophageal varices as cause of this as there is no evidence of
hematemesis that she has reported or coffee-ground emesis that she has reported.
-2 large-bore IVs
-IV fluids
-CLD
-Transfuse hemoglobin greater than 7
-2 units PRBC ordered by ED
-Obtain posttransfusion labs 3 hours after
-If blood pressure allows would give 20 mg of IV Lasix between
-If becomes hemodynamically unstable obtain a CT GI bleed study repeat stat CBC
-Consult GI for potential C-scope likely will happen on Sunday
- -If no plans for bidirectional scope on this admission then can likely be discharged home with outpatient follow-up with GI however GI would have to make this decision
CEA high
-Outpt Onc follow up
-High concenr for malignancy
Cirrhosis mild hepatic
-Outpatient hepatology follow-up
-Will need variceal screening therefore outpatient GI follow-up for EGD
-At this time no indication for octreotide or beta-jasen needs
Atrial fibrillation
-Continue Cardizem and metoprolol with holding parameters.
-Would consider transitioning metoprolol to Coreg if determined esophageal varices is the cause of this bleed
-Hold Eliquis and aspirin
CVA
-Hold Eliquis aspirin
-Continue statin
COPD
-Without active wheezing on exam
-On Trelegy as outpatient
-Start Spiriva and Symbicort
DVT prophylaxis
-SCDs
Anticipated Discharge: Today
Subjective/Interval History
-
Date of Service: November 10, 2023
Seen and examined no new complaints no acute overnight events
States shehas not had BM since admission
She does not want chemo rad. She wants to be DNR/DNI
Objective Data
-
Labs:
Laboratory Results
11/09/23 11/10/23
23:20 07:16
WBC 9.8
Hgb 8.3 L D 8.3 L
Hct 24.7 L 26.0 L
Plt Count 313
PT 19.4 H
INR 1.66
Sodium 136
Potassium 3.5
Chloride 101
Carbon Dioxide 28
BUN 12
Creatinine 0.6
Glucose 100 H
Calcium 8.4
Vital Signs:
Vital Signs
Temp Pulse Resp BP Pulse Ox
98.3 F 78 18 127/56 92
11/10/23 07:00 11/10/23 08:33 11/10/23 08:33 11/10/23 07:46 11/10/23 09:27
I&O
11/09/23 11/10/23 11/11/23
06:59 06:59 06:59
Intake Total 980 / 980
Balance 980 / 980
[2023-11-10] MEDS: TYLENOL 500 MG PO (10:53)
[2023-11-10] MEDS: D5/0.45%NACL 1000 IV (10:54)
[2023-11-10] MEDS: NSS (PRESERVATIVE FREE) 10 ML IV (11:01)
[2023-11-10] MEDS: PROTONIX IV 40 MG IV (11:01)
--- NOTE | 2023-11-10 14:15 | CM ---
CM following re: discharge planning.
Reviewed pt's chart, met with pt.
Pt is an 83 year old female, admitted with primary dx of GI bleed
Pt reports she lives with daughter Courtney in a condo, no steps to enter, there is an elevator, has 6 supportive children. Pt reports she ambulates with a walker, known to [facility] and was at [facility] in the past.
PCP: DR Hopkins
Pharmacy [facility]
D/C plan: most likely home with [facility] and family support.
CM will follow with discharge plan updates as hospitalization progresses
[2023-11-10 15:00] VITALS: BP 110/87
[2023-11-10] MEDS: ZOFRAN 4 MG PO (16:41)
[2023-11-10] MEDS: NULYTELY SOLUTION 4 LITERS PO (17:00)
[2023-11-10] MEDS: DULCOLAX 10 MG PO (18:22)
[2023-11-10] MEDS: GAVILAX 238 GM PO (18:23)
--- NOTE | 2023-11-10 18:31 | PTCARENOTE ---
Pt. given golytely solution around 1700 today. At about 1730 pt. had two episodes of emesis. MD notified. MD switched to miralax and Gatorade for prep. Will continue to monitor patient on prep.
[2023-11-10] MEDS: TOPROL XL 12.5 MG PO (21:23)
[2023-11-10] MEDS: TYLENOL 650 MG PO (21:23)
[2023-11-10] MEDS: CRESTOR 10 MG PO (21:23)
[2023-11-10 23:19] VITALS: BP 114/39
[2023-11-11] MEDS: D5/0.45%NACL 1000 IV (03:04)
[2023-11-11 06:00] VITALS: BMI 27.1
[2023-11-11 07:00] VITALS: BP 138/60
--- NOTE | 2023-11-11 07:21 | CON.ONC ---
Impression
Impression
Metastatic carcinoma with elevated CEA (hepatic carcinoma based on pathology but no hepatic lesion seen on MRI, suspect possible rectal carcinoma based on PET CT scan)
Blood loss anemia with Hemoccult positive stool
Recent L supraclavicular LN positive metastatic carcinoma, unknown primary concern for rectal cancer on PET CT scan
Afib on Eliquis, last dose 8/2 am
cirrhosis per recent MRI without HCC
Recent embolic CVA with speech difficulty
FH CRC- daughter age 57
L breast swelling
Elevated CEA 219
Plan
Plan
Patient was transfused x 2 units PRBC with adequate response. Hemoglobin improved from 6.3 > 8.3.
EGD and colonoscopy being performed later today.
Plan for biopsy consistent with carcinoma with suspected hepatic origin although no evidence of primary hepatic malignancy based on MRI.
PET CT scan suggestive of possible rectal primary. Await colonoscopy to directly visualize this area.
>If metastatic rectal cancer is proven based on colonoscopy scheduled for later today, first step will be to determine whether or not palliative surgery or radiation is needed for bleeding although most likely we will just start her on systemic
therapy appropriate for her metastatic rectal cancer.
>If sigmoidoscopy does not reveal evidence of a rectal primary, continue discussions with her regarding treatment for unknown primary carcinoma which had been started by Dr. Estes.
Patient History
History of Present Illness
CC: Fatigue
Oncology consultation: Elevated CEA, carcinoma unknown primary
HPI: 83-year-old female that was recently discharged from the hospital following sudden onset of slurred speech and weakness. She has a history of atrial fibrillation COPD hypertension hyperlipidemia anemia left upper lobe hematoma diverticulosis
and psoriasis. Her symptoms occurred while on Eliquis for atrial fibrillation. MRI of the brain performed on 12/31 showed evidence of multiple scattered acute ischemic infarcts bilaterally suggesting potential Eliquis failure. Cardiology had
recommended consideration of warfarin during hospitalization however neurology was concerned with regard to heparin bridge and conversion of acute ischemic event to hemorrhagic. Ultimately the consultants agreed to discharge on Eliquis and aspirin.
She has had no additional symptomatology or evidence of atypical bleeding. In addition to the presenting events she had a CT scan which revealed evidence of diffuse adenopathy which was biopsied and revealed evidence of carcinoma with staving
pattern suggesting primary hepatic etiology. She is undergone a number of diagnostic studies including PET CT scan and an MRI of the liver. The MRI of the liver failed to confirm a potential primary etiology of hepatocellular carcinoma although
there was evidence of diffuse cirrhosis and portal hypertension. Alpha-fetoprotein was in the normal range. CEA = 219 with PET scan activity in the rectum that is worrisome for primary malignancy. Lung lesions were noted on the PET CT scan in
addition to the adenopathy previously noted during hospitalization. The left supraclavicular lymph node had the highest SUV activity which had previously yielded a diagnosis incongruity us with the radiologic findings. The area of left breast
thickening noted on the MRI, failed to display SUV activity suggesting passive congestion possibly of thrombotic complication.
Patient was admitted with symptoms of fatigue and outpatient Hgb <7. She was transfused x 2 units PRBCs. Stools are Hemoccult positive. She is scheduled for an inpatient EGD and colonoscopy later today. Based on the PET CT scan there is suspicion
that despite the pathologic results, this actually could be a metastatic rectal cancer.
Past-Medical/Surgical History
Past Medical History
Hyperlipidemia.
Heart disease
Atrial Fibrillation
Blood clots
Bleeding tendency
COPD/ Asthma
Osteoporosis
Anemia
Stroke
Arthritis
Surgical History
Left Eye puncture 02/2023
Right Knee replacement 2005
Left Knee 2006
LT Ankle bone spur 6 years ago
Social History
Former Smoker.
Social use of alcohol.
Marital Status: Patient is . Grandmother of complications of hepatitis
Gynecological History
Patient reports 3 pregnancies.
Family Medical History
Daughter colon
Patient Medication
�Medication �Instructions �Recorded �Confirmed �Last Taken �Type
paroxetine HCl 20 mg tablet 20 mg PO DAILY Depression 09/15/08 11/09/23 11/09/23 History
apixaban 5 mg tablet (Eliquis) 5 mg PO BID 10/13/17 11/09/23 11/09/23 Rx
metoprolol succinate 25 mg 12.5 mg PO HS Blood pressure 06/18/20 11/09/23 11/08/23 History
tablet,extended release 24 hr
atropine 1 % eye drops 1 drp LEFT EYE DAILY Eye Condition 10/12/23 11/09/23 11/09/23 History
clobetasol 0.05 % shampoo 1 applic topical SUWE Skin Issues 10/12/23 11/09/23 11/04/23 History
diphenhydramine 25 1 tab PO HS sleep 10/12/23 11/09/23 11/08/23 History
mg-acetaminophen 500 mg tablet
(Tylenol PM Extra Strength)
ferrous sulfate 325 mg (65 mg 325 mg PO DAILY Supplement 10/12/23 11/09/23 11/08/23 History
iron) tablet
fluticasone fur. 100 mcg-umeclid 1 inh inhalation R DAILY 10/12/23 11/09/23 11/08/23 History
62.5 mcg-vilant 25 mcg Lung/Breathing Issues
inhalat.powder (Trelegy Ellipta)
fluticasone propionate 50 1 spray intranasal HS Congestion 10/12/23 11/09/23 11/08/23 History
mcg/actuation nasal
spray,suspension
rosuvastatin 10 mg tablet 10 mg PO HS High Cholesterol 10/12/23 11/09/23 11/08/23 History
diltiazem HCl 240 mg 240 mg PO DAILY #30 caps 10/14/23 11/09/23 11/09/23 Rx
capsule,extended release 24 hr
aspirin 81 mg tablet,delayed 81 mg PO DAILY #30 tabs 10/20/23 11/09/23 11/09/23 Rx
release
cyanocobalamin (vitamin B-12) 2,000 mcg (2 x 1,000 mcg) PO DAILY 10/20/23 11/09/23 11/09/23 Rx
1,000 mcg tablet #30 tabs
furosemide 20 mg tablet 20 mg PO DAILY Fluid 11/10/23 11/09/23 11/09/23 History
Retention/Swelling
Active Medications
Generic Name Dose Route Start Last Admin
Trade Name Freq PRN Reason Stop Dose Admin
Acetaminophen 650 mg 11/10/23 10:52 11/10/23 21:23
Acetaminophen 325 Mg Tablet PO 12/08/23 10:51 650 mg
Q6HPRN PRN Administration
mild pain/ fever>100.5F
Atropine Sulfate 0 drop 11/10/23 08:00 11/10/23 07:46
Atropine Sulfate 1% (Ophthalmic Drops) Droptainer LEFT EYE 12/08/23 07:59 1 drop
DAILY JOSE DANIEL Administration
Budesonide/Formoterol Fumarate 2 puff 11/09/23 20:30 11/10/23 20:02
Symbicort Inhaler 80/4.5 INH 12/07/23 20:29 2 puff
R BID JOSE DANIEL Administration
Protocol
Cyanocobalamin 2,000 mcg 11/10/23 08:00 11/10/23 07:46
Cyanocobalamin 1,000 Mcg Tablet PO 12/08/23 07:59 2,000 mcg
DAILY JOSE DANIEL Administration
Diltiazem HCl 240 mg 11/10/23 08:00 11/10/23 07:46
Diltiazem 240 Mg Extended Release (24 H) Capsule PO 12/08/23 07:59 240 mg
DAILY JOSE DANIEL Administration
Ferrous Sulfate 325 mg 11/10/23 08:00 11/10/23 07:46
Ferrous Sulfate 325 Mg Tablet PO 12/08/23 07:59 325 mg
DAILY JOSE DANIEL Administration
Metoprolol Succinate 12.5 mg 11/09/23 22:00 11/10/23 21:23
Metoprolol 12.5 Mg Extended Release Dose (1/2 Of 25 Mg Xl Tablet) PO 12/07/23 21:59 12.5 mg
HS JOSE DANIEL Administration
Pantoprazole Sodium 40 mg 11/10/23 11:00 11/10/23 11:01
Pantoprazole Sodium 40 Mg/10 Ml Vial IV 12/08/23 10:59 40 mg
DAILY JOSE DANIEL Administration
Paroxetine HCl 20 mg 11/10/23 08:00 11/10/23 07:46
Paroxetine 20 Mg Tablet PO 12/08/23 07:59 20 mg
DAILY JOSE DANIEL Administration
Rosuvastatin Calcium 10 mg 11/09/23 22:00 11/10/23 21:23
Rosuvastatin (Crestor) 10 Mg Tablet PO 12/07/23 21:59 10 mg
HS JOSE DANIEL Administration
Sodium Chloride 0 flush 11/09/23 17:00
Sodium Chloride 0.9% (Flush) Syringe IV 12/07/23 16:59
PER PROTOCOL JOSE DANIEL
Sodium Chloride 10 ml 11/10/23 11:00 11/10/23 11:01
Sodium Chloride 0.9% (Preservative Free) 10 Ml Vial IV 12/08/23 10:59 10 ml
DAILY JOSE DANIEL Administration
Tiotropium [place] 2 puff 11/10/23 08:00 11/10/23 08:26
Tiotropium (Spiriva Respimat) 2.5 Mcg Inhaler INH 12/08/23 07:59 2 puff
R DAILY JOSE DANIEL Administration
Protocol
Physical Exam
-
General: No Apparent Distress and Comfortable
HEENT: Negative Jaundice
Cardiology: S1 and S2
Pulmonary: Clear
GI: Soft
Extremities: No C/C/E
Labs
Lab Results
WBC 9.8 10^3/uL (4.8-10.8) 11/10/23 07:16
RBC 2.86 10^6/uL (4.20-5.40) L 11/10/23 07:16
Hgb 8.3 g/dL (12.0-16.0) L 11/10/23 07:16
Hct 26.0 % (37.0-47.0) L 11/10/23 07:16
MCV 90.9 fL (81.0-99.0) 11/10/23 07:16
MCH 29.0 pg (27.0-31.0) 11/10/23 07:16
MCHC 31.9 g/dL (33.0-37.0) L 11/10/23 07:16
RDW 19.3 % (11.5-14.5) H 11/10/23 07:16
Plt Count 313 10^3/uL (130-400) 11/10/23 07:16
MPV 10.3 fL (7.4-10.4) 11/10/23 07:16
Abs Immat Gran (auto) 0.1 10^3/uL (0-0.05) H 11/09/23 11:57
Absolute Neuts (auto) 6.3 10^3/uL (1.4-6.5) 11/09/23 11:57
Absolute Lymphs (auto) 1.6 10^3/uL (1.2-3.4) 11/09/23 11:57
Absolute Monos (auto) 1.1 10^3/uL (0.1-0.6) H 11/09/23 11:57
Absolute Eos (auto) 0.1 10^3/uL (0-0.7) 11/09/23 11:57
Absolute Basos (auto) 0.1 10^3/uL (0-0.2) 11/09/23 11:57
Immature Gran % 0.7 % (0-0.5) H 11/09/23 11:57
Neutrophils % 68.9 % (42.2-75.2) 11/09/23 11:57
Lymphocytes % 17.1 % (20.5-51.1) L 11/09/23 11:57
Monocytes % 11.6 % (1.7-9.3) H 11/09/23 11:57
Eosinophils % 1.0 % (0-6) 11/09/23 11:57
Basophils % 0.7 % (0-2) 11/09/23 11:57
Creatinine 0.6 mg/dL (0.6-1.0) 11/10/23 07:16
Vital Signs
Vital Signs
Temp Pulse Resp BP Pulse Ox
98.2 F 76 16 114/39 93
11/10/23 23:19 11/10/23 23:19 11/10/23 23:19 11/10/23 23:19 11/10/23 23:19
--- NOTE | 2023-11-11 08:12 | W.PN.UPDATE ---
Update Note
Progress Note Update
patient made DNR yesterday
I d/w pt - will reverse DNR for procedure and immediate post op
pt agreeable
[2023-11-11] MEDS: SYMBICORT 80/4.5 MCG INHALER INH (08:19)
[2023-11-11] MEDS: SPIRIVA RESPIMAT 2.5 MCG INH (08:19)
--- NOTE | 2023-11-11 09:45 | W.PN.UPDATE ---
Update Note
Progress Note Update
Daughter updated about results of scope (Courtney).
I updated oncologist as well.
[2023-11-11] MEDS: CARDIZEM CD 240 MG PO (10:06)
[2023-11-11] MEDS: VITAMIN B-12 2000 MCG PO (10:07)
[2023-11-11] MEDS: PROTONIX IV 40 MG IV (10:07)
[2023-11-11] MEDS: PAXIL 20 MG PO (10:07)
[2023-11-11] MEDS: FEOSOL 325 MG PO (10:07)
[2023-11-11] MEDS: NSS (PRESERVATIVE FREE) 10 ML IV (10:07)
[2023-11-11] MEDS: ATROPINE SULFATE 1% DROPS 1 DROP LEFT EYE (10:08)
--- NOTE | 2023-11-11 10:13 | W.PN.HOSP.TC ---
Today's Communication/Plan
-
dc home
resume eliquis per Onc and Gi rec via [facility]
Assessment / Plan
Assessment / Plan
NAD, resting comfortably in bed
Scleral anicteric, left eye complete corneal,
Moist mucous membranes
No JVD
CTA bilateral
Normal S1-S2 no murmurs
Soft nontender nondistended bowel sounds active
No peripheral pitting edema
Moves extremities spontaneously
AAOx3
GI bleed
Differential diagnosis which is broad cannot exclude diverticular, AVM/dysplastic, hemorrhoidal, neoplastic. Unlikely upper GI as BUN/creatinine ratio less than 30. Unlikely peptic ulcer. There is evidence on MRI abdomen that shows mild hepatic
cirrhosis with passive hepatic venous congestion and severely distended hepatic veins and IVC with periportal edema in the liver. Therefore cannot exclude rectal varices. Unlikely esophageal varices as cause of this as there is no evidence of
hematemesis that she has reported or coffee-ground emesis that she has reported.
-Transfuse hemoglobin greater than 7
-2 units PRBC ordered by ED
-s/p bidrectional scope without source of bleeding nor maligancy found
CEA high
-Outpt Onc follow up
-High concenr for malignancy
Cirrhosis mild hepatic
-Outpatient hepatology follow-up
-Will need variceal screening therefore outpatient GI follow-up for EGD
-At this time no indication for octreotide or beta-jasen needs
Left breast swelling
_need mammo/mri
-Outpt Breast surgery follow up
Atrial fibrillation
-Continue Cardizem and metoprolol with holding parameters.
-Would consider transitioning metoprolol to Coreg if determined esophageal varices is the cause of this bleed
-Hold Eliquis and aspirin
CVA
-Hold Eliquis aspirin
-Continue statin
COPD
-Without active wheezing on exam
-On Trelegy as outpatient
-Start Spiriva and Symbicort
DVT prophylaxis
-SCDs
Outpatient follow up with PCP and Oncology
Anticipated Discharge: Today
Subjective/Interval History
-
Date of Service: November 11, 2023
seen and examined
no new comaplitns
no acute overnight events
tolerated bidriectional scope well
Objective Data
-
Labs:
Laboratory Results
11/11/23
06:00
WBC Pending
Hgb Pending
Hct Pending
Plt Count Pending
PT Pending
INR Pending
Sodium Pending
Potassium Pending
Chloride Pending
Carbon Dioxide Pending
BUN Pending
Creatinine Pending
Glucose Pending
Calcium Pending
Vital Signs:
Vital Signs
Temp Pulse Resp BP Pulse Ox
97.5 F 95 18 138/60 93
11/11/23 07:00 11/11/23 07:00 11/11/23 07:00 11/11/23 07:00 11/11/23 09:08
I&O
11/10/23 11/11/23 11/12/23
06:59 06:59 06:59
Intake Total 980 / 980 2880 / 2880
Balance 980 / 980 2880 / 2880
--- NOTE | 2023-11-11 10:24 | W.DCSUMMARY ---
Discharge Summary
Discharge Data
Date of Admission: 11/09/23
Date of Discharge: 11/11/23
-
Pending Results: No
Hospital Course
83F hx of copd, afib, htn, hld presented from [facility] for hemoglobin of 6.4. Repeat 6.3 in the ED. Provided with 2 units PRBC with appropriate improvement. Evaluated by GI who performed a bidirectional scope. Without evidence of bleeding
noted. Discussed case postprocedure with GI and oncology. Resume Eliquis. Outpatient oncology follow up as a cancer marker was elevated and follow up with breast mri for swelling of the left breast. Outpatient pulmonary follow up for potential
bronchoscopy. Continue with outpatient cancer screening with PCP and outpaitent oncologist.
Additionally, we had a discussion about code status and elected to be DNR/DNI
C-scope
Findings:
Multiple semi-sessile polyps were found in the transverse colon,
ascending colon and cecum. The polyps were small in size. These were not
removed as all were small given her metastatic cancer of unclear primary.
Multiple large-mouthed, medium-mouthed and small-mouthed diverticula
were found in the sigmoid colon. As above very difficult to get the
scope passed and had to switch scope twice for successful completion.
Internal hemorrhoids were found during retroflexion. The hemorrhoids
were medium-sized and Grade I (internal hemorrhoids that do not
prolapse). No mass seen in rectum.
Egd
Findings:
The examined esophagus was normal.
Striped mildly erythematous mucosa without bleeding was found in the
entire examined stomach.
A few small semi-sessile polyps were found in the gastric body.
There was a medium-sized lipoma in the second portion of the duodenum.
Discharge Plan
-
Patient Disposition: Home (Routine Discharge)
Discharge Diagnosis/Procedures: Anemia
atrial fibrillation on Eliquis, COPD, hypertension, hyperlipidemia, IBS
Condition: Good
Diet: As tolerated
Activity: As tolerated
Activity Restrictions/Additional Instructions:
Presented from [facility] for hemoglobin of 6.4. Repeat 6.3 in the ED. Provided with 2 units PRBC with appropriate improvement. Evaluated by GI who performed a bidirectional scope. Without evidence of bleeding noted. Discussed case
postprocedure with GI and oncology. Resume Eliquis. Outpatient oncology follow up as a cancer marker was elevated and follow up with breast mri for swelling of the left breast. Outpatient pulmonary follow up for potential bronchoscopy. Continue
with outpatient cancer screening with PCP and outpaitent oncologist.
Additionally, we had a discussion about code status and elected to be DNR/DNI
C-scope
Findings:
Multiple semi-sessile polyps were found in the transverse colon,
ascending colon and cecum. The polyps were small in size. These were not
removed as all were small given her metastatic cancer of unclear primary.
Multiple large-mouthed, medium-mouthed and small-mouthed diverticula
were found in the sigmoid colon. As above very difficult to get the
scope passed and had to switch scope twice for successful completion.
Internal hemorrhoids were found during retroflexion. The hemorrhoids
were medium-sized and Grade I (internal hemorrhoids that do not
prolapse). No mass seen in rectum.
Egd
Findings:
The examined esophagus was normal.
Striped mildly erythematous mucosa without bleeding was found in the
entire examined stomach.
A few small semi-sessile polyps were found in the gastric body.
There was a medium-sized lipoma in the second portion of the duodenum.
Referrals:
Prosper Estes, [Active] - in two to four weeks
Tonya Hopkins PA-C [Family Provider] -
Prescriptions:
Continued
paroxetine HCl 20 MG tablet
20 mg PO DAILY
Eliquis 5 MG tablet
5 mg PO BID 0RF
metoprolol succinate 25 MG tablet extended release 24 hr
12.5 mg PO HS
diphenhydramine-acetaminophen [Tylenol PM Extra Strength] 25-500 mg Tablet
1 tab PO HS
Trelegy Ellipta 100-62.5-25 mcg Blister With Device
1 inh INHALATION R DAILY
ferrous sulfate 325 mg (65 mg iron) Tablet
325 mg PO DAILY
atropine 1 % Drops
1 drp LEFT EYE DAILY
fluticasone propionate 50 mcg/actuation [place],Suspension
1 spray INTRANASAL HS
rosuvastatin 10 mg Tablet
10 mg PO HS
clobetasol 0.05 % Shampoo
1 applic TOPICAL SUWE
diltiazem HCl 240 mg Capsule,Extended Release 24hr
240 mg PO DAILY Qty: 30 0RF
cyanocobalamin (vitamin B-12) 1,000 mcg Tablet
2,000 mcg PO DAILY Qty: 30 0RF
aspirin 81 mg Tablet,Delayed Release (Dr/Ec)
81 mg PO DAILY Qty: 30 0RF
furosemide 20 mg tablet
20 mg PO DAILY
Discharge Orders:
Discharge Patient (As Directed); Ordered 11/11/23
Ordered By: Cordell Israel
Discharge Date and Time
Print Language: HONG KONGER
[2023-11-11 10:54] LABS: INR 1.33; PT 16.3 Sec (11.4-14.6)
[2023-11-11 11:00] VITALS: BP 133/64
[2023-11-11 11:05] LABS: Hematocrit 25.9 % (37.0-47.0); Mean Corp Hgb Conc. 30.9 g/dL (33.0-37.0); Mean Corpuscular Hgb 28.2 pg (27.0-31.0); Mean Corpuscular Volume 91.2 fL (81.0-99.0); Mean Platelet Volume 10.2 fL (7.4-10.4); Platelet Count 295 10^3/uL (130-400); Red Blood Cell Count 2.84 10^6/uL (4.20-5.40); Red Cell Dist. Width 20.1 % (11.5-14.5); White Blood Cell Count 8.9 10^3/uL (4.8-10.8)
[2023-11-11 11:06] LABS: Blood Urea Nitrogen 3 mg/dl (7-17); Calcium 8.6 mg/dl (8.4-10.2); Carbon Dioxide 24 mmol/L (22-30); Chloride 105 mmol/L (98-107); Estimated Creatinine Clearance 65 ml/min; Glucose 94 mg/dl (70-99); Potassium 3.3 mmol/L (3.5-5.1); Sodium 137 mmol/L (135-145); eGFR > 60.00
--- NOTE | 2023-11-11 11:52 | CM ---
CM following re: discharge planning.
Reviewed pt's chart, met with pt.
Discharge order noted. Pt is aware, expressed her agreement with discharge and she stated she does not need after care VN services. her daughter will transport home. IMM reviewed, placed on chart, pt has a copy.
D/C plan: home no needs. Daughter to transport
[2023-11-12 20:20] LABS: Hepatitis B Surface Antigen Negative (Negative)
[2023-11-12 20:38] LABS: Hepatitis B Core Ab, Total Negative (Negative); Hepatitis B Surface Antibody Negative; Hepatitis C Antibody Negative (Negative)
[2023-11-12 20:40] LABS: Hepatitis A Antibody, Total Negative (Negative)
== END 2023-11-11 13:25 | disposition home or self-care (01) | DRG 811 ==
LOC: 3 WEST ACU 16:18
PROVIDERS: Internal Medicine Gastroenterology; Nurse Practitioner Adult Health; Nurse Practitioner Gerontology; ADMITTING PHYSICIAN Hospitalist; CONSULT PHYSICIAN Internal Medicine; CONSULT PHYSICIAN Internal Medicine Hematology & Oncology; EMERGENCY PHYSICIAN Emergency Medicine; FAMILY PHYSICIAN Physician Assistant; OTHER PHYSICIAN Specialist
PROC: 30233N1 Transfusion of Nonautologous Red Blood Cells into Peripheral Vein, Percutaneous Approach (ICD-10-PCS; 2023-11-09)
PROC: 0DJ08ZZ Inspection of Upper Intestinal Tract, Via Natural or Artificial Opening Endoscopic (ICD-10-PCS; 2023-11-11)
PROC: 0DJD8ZZ Inspection of Lower Intestinal Tract, Via Natural or Artificial Opening Endoscopic (ICD-10-PCS; 2023-11-11)
DX: D50.0 Iron deficiency anemia secondary to blood loss (chronic) (principal); K57.31 Diverticulosis of large intestine without perforation or abscess with bleeding; C22.9 Malignant neoplasm of liver, not specified as primary or secondary; I48.21 Permanent atrial fibrillation; C77.0 Secondary and unspecified malignant neoplasm of lymph nodes of head, face and neck; I50.32 Chronic diastolic (congestive) heart failure; D63.0 Anemia in neoplastic disease; I11.0 Hypertensive heart disease with heart failure; Z66 Do not resuscitate; J44.89 Other specified chronic obstructive pulmonary disease; E78.00 Pure hypercholesterolemia, unspecified; K58.9 Irritable bowel syndrome, unspecified; K74.60 Unspecified cirrhosis of liver; M81.0 Age-related osteoporosis without current pathological fracture; K31.7 Polyp of stomach and duodenum; D17.5 Benign lipomatous neoplasm of intra-abdominal organs; K64.0 First degree hemorrhoids; D12.0 Benign neoplasm of cecum; D12.3 Benign neoplasm of transverse colon; D12.2 Benign neoplasm of ascending colon; H54.62 Unqualified visual loss, left eye, normal vision right eye; K59.00 Constipation, unspecified; Z96.653 Presence of artificial knee joint, bilateral; Z86.73 Personal history of transient ischemic attack (TIA), and cerebral infarction without residual deficits; Z87.891 Personal history of nicotine dependence; Z79.51 Long term (current) use of inhaled steroids; Z79.82 Long term (current) use of aspirin; Z80.0 Family history of malignant neoplasm of digestive organs; Z88.5 Allergy status to narcotic agent; Z88.0 Allergy status to penicillin; Z79.01 Long term (current) use of anticoagulants; Z79.899 Other long term (current) drug therapy
CPT/HCPCS: 80048; 80053; 85014; 85018; 85025; 85027; 85610; 86704; 86706; 86708; 86803; 86850; 86900; 86901; 86920; 87340; 94640; 96374; 96376; 99285; P9016

== ENCOUNTER 2023-11-11 20:00 | Emergency (ER) | payer MEDICARE, OTHER, SELFPAY ==
[2023-11-11] VITALS (14 sets, daily range): BP systolic 49–120; BP diastolic 12–87
[2023-11-11] MEDS: LEVOPHED 250 IV (20:31)
[2023-11-11] MEDS: DIPRIVAN 100 IV (20:33)
[2023-11-11 20:48] LABS: INR 1.49; PT 17.9 Sec (11.4-14.6)
[2023-11-11 20:51] LABS: % Basophils 0.5 % (0-2); % Eosinophils 0.8 % (0-6); % Immature Granulocytes 1.6 % (0-0.5); % Monocytes 12.4 % (1.7-9.3); % Neutrophils 46.7 % (42.2-75.2); Absolute Basophils 0.1 10^3/uL (0-0.2); Absolute Eosinophils 0.1 10^3/uL (0-0.7); Absolute Immature Granulocytes 0.3 10^3/uL (0-0.05); Absolute Lymphocytes 6.7 10^3/uL (1.2-3.4); Absolute Monocytes 2.2 10^3/uL (0.1-0.6); Absolute Neutrophils 8.3 10^3/uL (1.4-6.5); Hematocrit 31.4 % (37.0-47.0); Hemoglobin 9.3 g/dL (12.0-16.0); Mean Corp Hgb Conc. 29.6 g/dL (33.0-37.0); Mean Corpuscular Hgb 28.9 pg (27.0-31.0); Mean Corpuscular Volume 97.5 fL (81.0-99.0); Mean Platelet Volume 10.4 fL (7.4-10.4); Platelet Count 320 10^3/uL (130-400); Red Blood Cell Count 3.22 10^6/uL (4.20-5.40); Red Cell Dist. Width 20.8 % (11.5-14.5); White Blood Cell Count 17.7 10^3/uL (4.8-10.8)
[2023-11-11 20:52] LABS: Anisocytosis 1+; Hypochromasia Slight; Normal RBC Morphology No
[2023-11-11 20:53] LABS: Polychromasia Slight
--- NOTE | 2023-11-11 21:19 | ED.GENMED ---
History of Present Illness
General
Chief Complaint: Heart Rate Problem
Source: records and family
Exam Limitations: clinical condition
Time Seen by Provider: 11/11/23 20:04
History of Present Illness
History of Present Illness:
83-year-old female discharged earlier today for bleeding and possible unknown cancer. Patient was very weak when she got home. Medics were called for respiratory distress and severe agitation. She was severely tachycardic. Given Cardizem and
Versed. Upon arrival to the ER patient was essentially unresponsive and taking poor respiratory effort.
Past History
Past History
ED Past Medical History: Arrthythmia (Atrial fibrillation), COPD, HTN, Hypercholesterolemia and Other (DJD the, psoriasis,: Polyps, diverticulosis, irritable bowel syndrome)
ED Past Surgical History: Orthopedic (repair right Tib/Fib fracture, L and R meniscus tear, Left heel spur removed) and Other (Lung biopsy)
Social History
Tobacco: Former smoker
Alcohol: Daily (2 glasses wine)
Personal:
Living: alone
Employment: Retired
Family History
Family History: Other (Noncontributory)
Review of Systems
Review of Systems
Unable to obtain full review of systems at this time due to: due to acuity
All Other Systems: Not applicable
Phy Exam
Physical Exam
Physical Exam:
GENERAL: Essentially unresponsive on arrival. Weak respiratory effort. Nd oriented in no apparent distress
EYE: Orbits normal.
NECK: Supple
CARDIAC: Irregular irregular
LUNGS: Clear breath sounds poor effort
ABDOMEN: Soft, without focal tenderness or distention
NEUROLOGICAL: Near unresponsive. Withdraws to pain
SKIN: Warm and dry, no rash or lesion, no discoloration, skin intact.
MUSCULOSKELETAL: No edema,no deformity.Good color
Course
Orders/Labs/Results
Orders:
Orders
11/11/23 20:16
Chest X-ray Portable [CR Chest Portable - 1 View] Urgent
Comment:
Reason For Exam: unresponsive/intubation
Reason Study Needs to be Portable: Patient Unstable
11/11/23 20:19
NORepinephrine 4 MG/250 ML [Levophed] 4 mg in 250 ml .ROUTE .STK-MED
Propofol 1,000,000 Mcg/100 ml [Diprivan] 1,000,000 mcg in 100 ml .ROUTE .STK-MED
11/11/23 20:20
Complete Blood Count/With Diff Urgent
PT/INR [Prothrombin Time] Urgent
11/11/23 20:23
EKG [Electrocardiogram (*1)] Urgent
Reason for Study: Atrial Fibrillation
11/11/23 20:24
EKG- Treatment ONCE
NORepinephrine 4 MG/250 ML [Levophed] 4 mg in 250 ml IV NOW
Initial dose in mcg/min, then titrate:: 2
Titrate to keep:: MAP > 65 mmHg
Titrate by mcg/min:: 1-2 mcg/min
Frequency of titrations (minutes):: 5
Maximum dose in ICU in mcg/min:: 30
Maximum dose in IMU in mcg/min:: 8
Maximum dose in IVU in mcg/min:: 4
Begin to taper infusion when:: Remained at goal for 4hrs
Taper by mcg/min:: 1-2 mcg/min
Frequency of taper (minutes) if patient maintains goal:: 30
Taper to off?: Yes
If infusion off & no longer maintaining goal:: Contact Provider
Propofol 1,000,000 Mcg/100 ml [Diprivan] 1,000,000 mcg in 100 ml IV NOW
Indication:: Light Sedation
Begin Infusion:: Now
Goal:: RASS 0 to -2
Maximum dose in mcg/kg/min:: 50
Initial dose based on RASS:: Yes
If RASS is:: +1 or pt hemodynamically unstable (SBP < 90mmHg), initiate at 10 mcg/kg/min
If RASS is:: +2, initiate at 20 mcg/kg/min
If RASS is:: greater than or equal to +3, initiate at 30 mcg/kg/min
Titration Instructions:: Titrate by 5-10 mcg/kg/min every 5 minutes until RASS 0 to -2 achieved.
Taper Instructions:: If RASS is at or below goal for 4 consecutive hours decrease infusion by
Taper Instructions:: 5-10 mcg/kg/min every 2 hours to off.
Over-sedation Instructions:: If CPOT 0-2 (at goal) AND RASS -3 to -5 (below goal) decrease sedative by
Over-sedation Instructions:: 50% first. If pain score remains at goal and RASS remains below goal in
Over-sedation Instructions:: 1 hour, decrease opioid infusion by 50%.
Notify provider:: immediately if patient exhibits signs/symptoms of propofol-related
Notify provider:: infusion syndrome.
Additional Instructions:: Patient MUST be mechanically ventilated and MUST receive analgesia.
11/11/23 20:25
IV Insert/Care/Rem.- Treatment PRN
11/11/23 20:31
CT Head W/o Iv Contrast Urgent
Comment:
Reason For Exam: unresponsive
11/11/23 20:43
CT Chest Pe Study Urgent
Comment:
Reason For Exam: sob hypotension
11/11/23 20:58
Add On- LAB Urgent
Tests Added?: Pro-BNP
11/11/23 21:03
CT Abd/Pel (IV only)-DH only Urgent
Reason For Exam: shock
11/11/23 21:04
Atropine Sulfate [Atropine 0.1 mg/ml Syringe] 1 mg .ROUTE .STK-MED ONE
Abnormal Lab Results
11/11/23
20:20
WBC 17.7 H 10^3/uL
(4.8-10.8)
RBC 3.22 L 10^6/uL
(4.20-5.40)
Hgb 9.3 L g/dL
(12.0-16.0)
Hct 31.4 L %
(37.0-47.0)
MCHC 29.6 L g/dL
(33.0-37.0)
RDW 20.8 H %
(11.5-14.5)
Abs Immat Gran (auto) 0.3 H 10^3/uL
(0-0.05)
Absolute Neuts (auto) 8.3 H 10^3/uL
(1.4-6.5)
Absolute Lymphs (auto) 6.7 H 10^3/uL
(1.2-3.4)
Absolute Monos (auto) 2.2 H 10^3/uL
(0.1-0.6)
Immature Gran % 1.6 H %
(0-0.5)
Monocytes % 12.4 H %
(1.7-9.3)
PT 17.9 H Sec
(11.4-14.6)
11/11/23 20:20
11/11/23 21:03
Vital Signs
Initial and Last Documented VS:
Initial Vital Signs
Pulse Resp BP Pulse Ox
108 16 69/58 76
11/11/23 20:05 11/11/23 20:05 11/11/23 20:05 11/11/23 20:05
Last Documented Vital Signs
Pulse Resp BP Pulse Ox
0 19 95/26 73
11/11/23 21:19 11/11/23 21:15 11/11/23 21:15 11/11/23 20:21
Procedures
Intubations
Procedure completed by: Myself
Method of Intubation: glidescope
Tube size (cm): 7.0
Placement confirmed by: auscutation, CXR, capnography and direct visualization
Breath sounds after intubation: equal
Intubation complications: no complications
MDM/Problems Addressed
Differential Diagnosis Includes:
Respiratory distress. Shock. Patient clearly needed to be intubated on arrival. 2 IVs IV fluids. Levophed was ordered. Patient was intubated with etomidate and rocuronium. No difficulty intubating. Possible massive pulmonary emboli. Possible
cardiogenic shock. Doubt septic issue. Patient had a blood pressure of [address] She decompensated in CT. CPR was started. Lengthy discussion with but after.
*Radiology
Radiology exam reviewed: preliminary read by ED provider (X-ray shows tube in place.)
*Pulse Oximetry
Patient hypoxic: yes
*EKG
Interpreted by ED Provider?: Yes
Interpretation: abnormal
Comparison EKG: no changes
Heart Rate: 63
Rate: bradycardiac
Rhythm: a-fib
[place]: normal axis
Interval: normal interval
QRS Pattern: normal QRS
Ischemia: non-specific ST changes
*Ad Terminal Makeup Operator Interpretation
Rate: bradycardiac
Heart Rate: 53
Rhythm: a-fib
*Critical Care Note
Total Time (30-74mins, 75-104mins- exclusive of procedures): 70
Data Reviewed
Review of Other/Old Records Reveals: Labs, Records, Progress Notes and Discharge Summary
Update Note
Update Note:
Many discussions with the family to update her critical condition. Initial discussions focused on her life-threatening condition, cardiogenic shock. Also her poor probable outcome was discussed. Family did want patient intubated. Patient
remained in shock despite pressors. She was sent to CAT scan as a last ditch effort to try to come up with a treatable reason for this. Somewhat suspicious of a possible massive pulmonary emboli. She had stopped Eliquis for 2 days prior to the
colonoscopy. However patient essentially coded and CT. CPR was started. Every 5 minute epi's. Lengthy discussion with family. And code was called
ED Attending Note
-
Portions of this chart may have been created with voice recognition software.� Occasional wrong word or��sound alike� substitutions may have occurred due to the inherent limitations of voice recognition software.
Discharge Plan
Departure
Patient Disposition:
Date of Disposition: 11/11/23
Time of Disposition: 21:19
Discharge Problem:
Cardiopulmonary arrest
Prescriptions:
No Action
paroxetine HCl 20 MG tablet
20 mg PO DAILY
Eliquis 5 MG tablet
5 mg PO BID 0RF
metoprolol succinate 25 MG tablet extended release 24 hr
12.5 mg PO HS
diphenhydramine-acetaminophen [Tylenol PM Extra Strength] 25-500 mg Tablet
1 tab PO HS
Trelegy Ellipta 100-62.5-25 mcg Blister With Device
1 inh INHALATION R DAILY
ferrous sulfate 325 mg (65 mg iron) Tablet
325 mg PO DAILY
atropine 1 % Drops
1 drp LEFT EYE DAILY
fluticasone propionate 50 mcg/actuation [place],Suspension
1 spray INTRANASAL HS
rosuvastatin 10 mg Tablet
10 mg PO HS
clobetasol 0.05 % Shampoo
1 applic TOPICAL SUWE
diltiazem HCl 240 mg Capsule,Extended Release 24hr
240 mg PO DAILY Qty: 30 0RF
cyanocobalamin (vitamin B-12) 1,000 mcg Tablet
2,000 mcg PO DAILY Qty: 30 0RF
aspirin 81 mg Tablet,Delayed Release (Dr/Ec)
81 mg PO DAILY Qty: 30 0RF
furosemide 20 mg tablet
20 mg PO DAILY
Referrals:
UNKNOWN - PT NOT,INTERVIEWE [Family Provider] -
Interventions
Interventions:
ED- Cardiac Assessment Last Done: 11/11/23 20:10
ED- Pulmonary Assessment Last Done: 11/11/23 20:10
Discharge Date and Time
Print Language: IRISH
== END 2023-11-11 21:19 | disposition expired ==
LOC: EMR 20:00
PROVIDERS: EMERGENCY PHYSICIAN Emergency Medicine
DX: I46.9 Cardiac arrest, cause unspecified (principal); I48.91 Unspecified atrial fibrillation; J44.9 Chronic obstructive pulmonary disease, unspecified; I10 Essential (primary) hypertension; E78.00 Pure hypercholesterolemia, unspecified; K58.9 Irritable bowel syndrome, unspecified; Z86.73 Personal history of transient ischemic attack (TIA), and cerebral infarction without residual deficits; Z87.891 Personal history of nicotine dependence
CPT/HCPCS: 99291; 31500; 96374; 96375; 70450; 71045; 71275; 74177; 85025; 85610; 93005; 94002; Q9967